=== PATIENT | female | born 1940 | race Caucasian/White ===

== ENCOUNTER 2016-08-12 16:29 | Inpatient (IN) | payer OTHER, MEDICARE ==
--- NOTE | 2016-08-12 17:07 | PDOC ---
History of Present Illness <Tutu Holt - Last Filed: 08/12/16 21:06> - General History Source: Patient, Old Records Exam Limitations: No Limitations - History of Present Illness Initial Comments: 08/12/16 17:39 The patient is a 76 year old female, with a significant past medical history of hypertension, GERD and autoimmune hepatitis (diagnosed in May 2016 with confirmatory biopsy in June 2016), who presents to the emergency department with worsening shortness of breath for the past 3 days. The patient reports abdominal distention in addition to bilateral lower extremity edema. The patient reports that the abdominal distention is worse after eating. The patient reports that she was recently diagnosed with autoimmune hepatitis in May 2016 and was started on Azathioprine, Lasix and Prednisone. On 2016, the patient reports that she began experiencing leg cramps and was advised to stop taking the Lasix by Dr. Ariza. Three days ago, the patient began experiencing hand cramping and facial cramping. She reports calling Dr. Hidalgo at that time, who advised that she stop taking the Azathioprine. The patient reports a weight gain of 17 pounds in the past 2 months, from 240 pounds to 257 pounds. The patient presents to the ED today, sent in by Dr. Ariza, for further evaluation. The patient denies chest pain. The patient denies fever, chills, nausea or vomiting. The patient's family is at the bedside. Allergies: NSAIDS. Medications: Metoprolol, Hydrochlorothiazide, Omeprazole, Azathioprine, Lasix, Prednisone. Past Surgical History: Liver Biopsy (June 2016). Social History: Non smoker. Denies alcohol or drug use. PCP: Dr. Jasno Ariza Traffic Control Supervisor: Dr. Sexton Make Up Artist: Dr. Hidalgo <Jordyn Pelayo - Last Filed: 08/12/16 21:30> - General Chief Complaint: Shortness of Breath Stated Complaint: SHORTNESS OF BREATH Time Seen by Provider: 08/12/16 16:37 Past History - Past Medical History HTN: Yes HIV: Yes Other medical history: autoimmune hepatitis - Psycho/Social/Smoking Cessation Hx Anxiety: No Suicidal Ideation: No Smoking History: Never smoked Have you smoked in the past 12 months: No Information on smoking cessation initiated: No Hx Alcohol Use: No Drug/Substance Use Hx: No Substance Use Type: None <Tutu Holt - Last Filed: 08/12/16 21:06> <Jordyn Pelayo - Last Filed: 08/12/16 21:30> - Past Medical History Allergies/Adverse Reactions: Allergies Allergy/AdvReac Type Severity Reaction Status Date / Time NSAIDS (Non-Steroidal Allergy Severe Difficulty Verified 08/12/16 16:59 Anti-Inflamma Breathing Home Medications: Ambulatory Orders Azathioprine [Imuran] 50 mg PO BID 08/12/16 Furosemide [Lasix -] 20 mg PO DAILY 08/12/16 Hydrochlorothiazide 25 mg PO DAILY 08/12/16 Metoprolol Tartrate [Lopressor -] 50 mg PO BID 08/12/16 Omeprazole 40 mg PO DAILY 08/12/16 Prednisone [Deltasone -] 60 mg PO DAILY 08/12/16 Review of Systems - Review of Systems Able to Perform ROS?: Yes Comments:: 08/12/16 17:37 CONSTITUTIONAL: Absent: Fever, Chills, Diaphoresis, Generalized Weakness, Malaise, Loss of Appetite HEENT: Absent: Rhinorrhea, Nasal Congestion, Throat Pain, Throat Swelling, Difficulty Swallowing, Mouth Swelling, Ear Pain, Eye Pain, Visual Changes CARDIOVASCULAR: Absent: Chest Pain, Syncope, Palpitations, Irregular Heart Rate, Lightheadedness , Peripheral Edema RESPIRATORY: Present: +Shortness of Breath Absent: Cough, Orthopnea, Wheezing, Stridor, Hemoptysis GASTROINTESTINAL: Present: +Abdominal Distention Absent: Abdominal pain, Nausea, Vomiting, Diarrhea, Constipation, Melena, Hematochezia GENITOURINARY: Absent: Dysuria, Frequency, Urgency, Hesitancy, Flank Pain, Genital Pain MUSCULOSKELETAL: Absent: Myalgia, Arthralgia, Joint Swelling, Back pain, Neck Pain EXTREMITIES: Present: +Bilateral lower extremity edema SKIN: Absent: Rash, Itching, Pallor HEMATOLOGIC/IMMUNOLOGIC: Absent: Easy Bleeding, Easy Bruising, Lymphadenopathy, Frequent infections ENDOCRINE: Absent: Unexplained Weight Gain, Unexplained Weight Loss, Heat Intolerance, Cold Intolerance NEUROLOGIC: Absent: Headache, Focal Weakness, Paresthesias, Vertigo, Lightheadedness, Unsteady Gait, Seizure, Mental Status Changes, Incontinence PSYCHIATRIC: Absent: Anxiety, Depression <Jordyn Pelayo - Last Filed: 08/12/16 21:30> *Physical Exam - Vital Signs Last Vital Signs Temp Pulse Resp BP Pulse Ox 98.0 F 93 H 22 140/82 100 08/12/16 16:44 08/12/16 16:44 08/12/16 16:44 08/12/16 16:44 08/12/16 16:44 <YanetTutu Isac - Last Filed: 08/12/16 21:06> - Vital Signs Last Vital Signs Temp Pulse Resp BP Pulse Ox 98.0 F 93 H 22 140/82 100 08/12/16 16:44 08/12/16 16:44 08/12/16 16:44 08/12/16 16:44 08/12/16 16:44 - Physical Exam Comments: 08/12/16 17:37 GENERAL: The patient is awake, alert, and fully oriented, in no acute distress. HEAD: Normal with no signs of trauma. EYES: Pupils equal, round and reactive to light, extraocular movements intact, sclera anicteric, conjunctiva clear. ENT: Ears normal, nares patent, oropharynx clear without exudates. Moist mucous membranes. NECK: Normal range of motion, supple without lymphadenopathy, JVD, or masses. LUNGS: Minimal right basilar crackles, left is clear. Breath sounds equal, bilaterally. No wheezes. HEART: Regular rate and rhythm, normal S1 and S2 without murmur, rub or gallop. ABDOMEN: Obese. Distended with a positive fluid wave. Mild diffuse tenderness. Soft, normoactive bowel sounds. No guarding, no rebound. No masses. No caput, no spiders angiomata. EXTREMITIES: 3+ pitting edema of the bilateral lower extremities to above the knee. Normal range of motion. No clubbing or cyanosis. No cords, erythema, or tenderness. NEUROLOGICAL: Cranial nerves II through XII grossly intact. Normal speech, normal gait. PSYCH: Normal mood, normal affect. SKIN: Warm, dry, normal turgor, no rashes or lesions noted. <Jordyn Pelayo - Last Filed: 08/12/16 21:30> Heart Score/ECG Review - ECG Intrepretation Comment:: 08/12/16 17:06 Twelve-lead EKG shows normal sinus rhythm at a rate of 100 bpm. The axis is normal. The intervals are normal. There are small inferior Q waves. There is no ST elevation or depression. In comparison with prior EKG of August 2007, there are no significant changes. <YanetTutu chowdary - Last Filed: 08/12/16 21:06> ED Treatment Course - LABORATORY CBC & Chemistry Diagram: 08/12/16 17:32 08/12/16 17:32 <YanetTutu Isac - Last Filed: 08/12/16 21:06> - LABORATORY CBC & Chemistry Diagram: 08/12/16 17:32 08/12/16 17:32 <Jordyn Pelayo - Last Filed: 08/12/16 21:30> Medical Decision Making - Medical Decision Making 08/12/16 21:06 Patient is a 76-year-old woman who presents with progressive ascites and leg edema. She has a history of autoimmune hepatitis with prior minor leg edema, but never this severe. She is also complaining of some cramping in her legs and her hands. On examination she has minimal right basilar crackles, significant ascites, and leg edema up above the knees with 3+ pitting. Bedside ultrasound was performed by me. There is substantial ascites. The liver appears somewhat echo dense. Windows for the cardiac exam were poor due to the patient's obesity. There was no gross pericardial effusion. Laboratory studies reviewed. They are notable for acute kidney injury. Hepatic synthetic function is normal with INR normal and bilirubin normal. Patient's white blood cell count is elevated to 21.9, however, she is on steroids and her baseline white blood cell count has been in the high teens to 20. I spoke to Dr. Hernandez and he will admit the patient. GI consultation requested with Dr. Hidalgo for tomorrow. No acute indication for paracentesis tonight. Laboratory Tests 08/12/16 08/12/16 08/12/16 17:32 17:32 17:32 WBC 21.9 H RBC 4.46 Hgb 13.3 Hct 39.7 MCV 89.1 MCHC 33.6 RDW 15.4 Plt Count 255 D MPV 9.1 Neutrophils % 92.0 H Lymphocytes % 6.0 L D Monocytes % 1.0 L Eosinophils % 0.0 D Basophils % 0.0 Band Neutrophils 1.0 D INR 1.03 Sodium 137 Potassium 4.6 Chloride 101 Carbon Dioxide 21 D Anion Gap 15 BUN 66 H D Creatinine 1.7 H D Creat Clearance w eGFR 29.14 Random Glucose 232 H D Calcium 8.3 L Magnesium Total Bilirubin 0.8 AST 44 H ALT 18 D Alkaline Phosphatase 82 D B-Natriuretic Peptide Total Protein 6.2 L Albumin 2.6 L 08/12/16 08/12/16 17:32 17:55 WBC RBC Hgb Hct MCV MCHC RDW Plt Count MPV Neutrophils % Lymphocytes % Monocytes % Eosinophils % Basophils % Band Neutrophils INR Sodium Potassium Chloride Carbon Dioxide Anion Gap BUN Creatinine Creat Clearance w eGFR Random Glucose Calcium Magnesium 2.6 H Total Bilirubin AST ALT Alkaline Phosphatase B-Natriuretic Peptide 701.87 H Total Protein Albumin The scribe's documentation has been prepared under my direction and personally reviewed by me in its entirety. I have confirmed that the note above accurately reflects all work, treatment, procedures, and medical decision- making performed by me. <Tutu Holt - Last Filed: 08/12/16 21:06> - Medical Decision Making 08/12/16 18:22 EXAM: RAD/CHEST X-RAY PORTABLE Reviewed By: Dr. Yuliana Chi IMPRESSION: Moderate elevation of the right hemidiaphragm with mild atelectatic changes in the right lung base, medially. Cannot rule out superimposed infiltrates. EXAM: US/ABDOMEN US - LIMITED Reviewed By: Dr. Yuliana Chi IMPRESSION: Gallstones/Gallstones with the largest measuring 1.5 x 0.7 cm with thickening of the gallbladder wall. Correlate clinically for further evaluation. Moderate amount of free fluid/ascites in the right upper abdomen. Dense echotexture of the liver consistent with fatty infiltrations versus hepatocellular disease. <Jordyn Pelayo - Last Filed: 08/12/16 21:30> *DC/Admit/Observation/Transfer - Discharge Dispostion Admit: Yes Decision to Admit order Date/Time: 08/12/16 21:09 <Tutu Holt - Last Filed: 08/12/16 21:06> - Attestations Scribe Attestion: 08/12/16 17:37 Documentation prepared by Jordyn Pelayo, acting as director of medical staff services for Tutu Holt MD. <Jordyn Pelayo - Last Filed: 08/12/16 21:30> Diagnosis at time of Disposition: CHF (congestive heart failure) Qualifiers: Congestive heart failure type: unspecified congestive heart failure type Congestive heart failure chronicity: unspecified congestive heart failure chronicity Qualified Code(s): I50.9 - Heart failure, unspecified Ascites Qualifiers: Ascites type: other type Qualified Code(s): R18.8 - Other ascites - Discharge Dispostion Condition at time of disposition: Stable - Referrals Referrals: Jason Ariza MD [Primary Care Provider] -
[2016-08-12 17:41] LABS: MCH 29.9 pg (25.7-33.7); MCHC 33.6 g/dl (32.0-36.0); MEAN CELL VOLUME 89.1 fl (80-96); MEAN PLT VOLUME 9.1 fl (7.5-11.1); PLATELET COUNT 255 K/MM3 (134-434); RDW 15.4 % (11.6-15.6); WHITE BLOOD COUNT 21.9 K/mm3 (4.0-10.0)
--- NOTE | 2016-08-12 17:43 | PDOC ---
History of Present Illness - General Chief Complaint: Shortness of Breath Stated Complaint: SHORTNESS OF BREATH Time Seen by Provider: 08/12/16 16:37 History Source: Patient Exam Limitations: No Limitations - History of Present Illness Initial Comments: 08/12/16 17:24 76 yo F with PMHx of autoimmune hepatitis, GERD, and HTN presents with one week history of worsening SOB and leg edema. She states that in late she was diagnosed with autoimmune hepatitis. She was started on Lasix, prednisone, and Azithioprine. She stopped lasix due to muscle cramping on 08/02/16 and fluid began to accumulate in abdomen and LE. 08/09/16 she stopped Azithioprine due to possible adverse effect of facial twitching. She presents today for worsening sob and LE edema. Denies CP, MEYERS, palpitations, n/v. Past History - Travel Traveled outside of the country in the last 30 days: No Close contact w/someone who was outside of country & ill: No - Past Medical History Allergies/Adverse Reactions: Allergies Allergy/AdvReac Type Severity Reaction Status Date / Time NSAIDS (Non-Steroidal Allergy Severe Difficulty Verified 08/12/16 16:59 Anti-Inflamma Breathing HTN: Yes HIV: Yes Other medical history: autoimmune hepatitis - Psycho/Social/Smoking Cessation Hx Anxiety: No Suicidal Ideation: No Smoking History: Never smoked Have you smoked in the past 12 months: No Information on smoking cessation initiated: No Hx Alcohol Use: No Drug/Substance Use Hx: No Substance Use Type: None Respiratory Specific PMHX - Complaint Specific PMHX Pneumonia: No Review of Systems - Review of Systems Respiratory: Yes: Shortness of Breath, SOB with Exertion, SOB at Rest. No: Hemoptysis Cardiac (ROS): Yes: Edema. No: Chest Pain All Other Systems: Reviewed and Negative *Physical Exam - Vital Signs Last Vital Signs Temp Pulse Resp BP Pulse Ox 98.0 F 93 H 22 140/82 100 08/12/16 16:44 08/12/16 16:44 08/12/16 16:44 08/12/16 16:44 08/12/16 16:44 - Physical Exam General Appearance: Yes: Mild Distress HEENT: positive: EOMI, [place] Neck: positive: Supple Respiratory/Chest: positive: Crackles (bibasilar crackles. ). negative: Respiratory Distress, Accessory Muscle Use Cardiovascular: positive: Regular Rhythm, Regular Rate, S1, S2. negative: Edema , JVD, Murmur Gastrointestinal/Abdominal: positive: Normal Bowel Sounds, Distended, Tenderness (mild diffuse), Other (ascites with (+) fluid wave. ) Musculoskeletal: positive: Normal Inspection, CVA Tenderness Extremity: positive: Pedal Edema, Swelling (2+ edema up to level of knees bilaterally. ). negative: Calf Tenderness Neurologic: positive: Fully Oriented, Alert, Normal Mood/Affect ED Treatment Course - LABORATORY CBC & Chemistry Diagram: 08/12/16 17:32 08/12/16 17:32 Medical Decision Making - Medical Decision Making 08/12/16 17:59 A:76 yo F with PMHx of autoimmune hepatitis, GERD, and HTN presents with one week history of worsening SOB and leg edema. Worsening edema most likely 2/2 progressive liver disease. P: * Will get stat labs to assess liver function- CBC,CMP,INR,BNP, Mg, and UA. * CXR and abd. US to access ascites and r/o portal vein thrombosis. *DC/Admit/Observation/Transfer Diagnosis at time of Disposition: Congestive heart failure Qualifiers: Congestive heart failure type: unspecified congestive heart failure type Congestive heart failure chronicity: unspecified congestive heart failure chronicity Qualified Code(s): I50.9 - Heart failure, unspecified Ascites Qualifiers: Ascites type: other type Qualified Code(s): R18.8 - Other ascites - Discharge Dispostion Admit: Yes - Referrals Referrals: Jason Ariza MD [Primary Care Provider] -
[2016-08-12 19:08] LABS: INR 1.03 (0.82-1.09); PROTHROMBIN TIME (PATIENT) 11.3 SEC (9.98-11.88)
[2016-08-12 19:17] LABS: ALBUMIN 2.6 g/dl (3.4-5.0); BILIRUBIN,TOTAL 0.8 mg/dL (0.2-1.0); CALCIUM 8.3 mg/dL (8.5-10.1); COCKROFT - GAULT 46.036; CREATININE 1.7 mg/dL (0.55-1.02); TOT PROT 6.2 g/dl (6.4-8.2)
[2016-08-12] MEDS ORDERED: FUROSEMIDE 40 MG/4 ML INJECTABLE VIAL IVPB ONE (20:22)
[2016-08-12] MEDS ORDERED: FUROSEMIDE 40 MG/4 ML INJECTABLE VIAL ONE (21:15)
[2016-08-12] MEDS ORDERED: METOPROLOL TARTRATE 50 MG TABLET (FP) ONE (23:24)
[2016-08-12] MEDS: METOPROLOL TARTRATE 50 MG TABLET (FP) PO SCH (23:29)
[2016-08-13] MEDS ORDERED: METOPROLOL TARTRATE 25 MG TABLET (FP) ONE (00:17)
[2016-08-13 01:23] VITALS: BMI 45.3
[2016-08-13 08:07] LABS: BASOPHIL 0.6 % (0-2.0); EOSINOPHIL 0.1 % (0-4.5); MCH 29.7 pg (25.7-33.7); MCHC 33.2 g/dl (32.0-36.0); MEAN CELL VOLUME 89.3 fl (80-96); MEAN PLT VOLUME 8.9 fl (7.5-11.1); NEUTROPHILS 83.6 % (42.8-82.8); PLATELET COUNT 234 K/MM3 (134-434); RDW 15.2 % (11.6-15.6); WHITE BLOOD COUNT 23.2 K/mm3 (4.0-10.0)
[2016-08-13 08:40] LABS: ALBUMIN 2.4 g/dl (3.4-5.0); BILIRUBIN,TOTAL 0.9 mg/dL (0.2-1.0); CALCIUM 8.2 mg/dL (8.5-10.1); COCKROFT - GAULT 47.94; CREATININE 1.8 mg/dL (0.55-1.02); TOT PROT 5.7 g/dl (6.4-8.2)
[2016-08-13] MEDS: PANTOPRAZOLE 40 MG TABLET (FP) PO SCH (09:39)
[2016-08-13] MEDS: METOPROLOL TARTRATE 50 MG TABLET (FP) PO SCH ×2 (09:39→21:20)
--- NOTE | 2016-08-13 10:00 | EKG ---
Test Reason : Blood Pressure : / mmHG Vent. Rate : 100 BPM Atrial Rate : 100 BPM P-R Int : 120 ms QRS Dur : 086 ms QT Int : 336 ms P-R-T Axes : 056 031 055 degrees QTc Int : 433 ms NORMAL SINUS RHYTHM CANNOT RULE OUT INFERIOR INFARCT , AGE UNDETERMINED POOR R WAVE PROGRESSION WHEN COMPARED WITH ECG OF 05-SEP-2007 08:51, NO SIGNIFICANT CHANGE WAS FOUND Confirmed by HEIKE BUCIO MD ([id number]) on 08/13/2016 10:00:14 AM Referred By: Confirmed By:HEIKE BUCIO MD
[2016-08-13 10:01] LABS: URINE APPEARANCE SLCLOUDY; URINE BILIRUBIN NEGATIVE (NEGATIVE); URINE COLOR AMBER; URINE GLUCOSE (UA) NEGATIVE (NEGATIVE); URINE KETONE NEGATIVE (NEGATIVE); URINE NITRITE NEGATIVE (NEGATIVE); URINE UROBILINOGEN NEGATIVE E.U./dl (0.2-1.0)
[2016-08-13 10:04] LABS: URINE BLOOD 2+ (NEGATIVE); URINE PROTEIN 1+ (NEGATIVE)
[2016-08-13 10:05] LABS: URINE LEUK ESTERASE 3+ (NEGATIVE)
[2016-08-13 10:08] LABS: URINE BACTERIA FEW /hpf (NONE SEEN); URINE HYALINE CAST 94 /lpf; URINE MUCUS RARE; URINE RBC 10 /hpf (0-3); URINE WBC 115 /hpf (3-5)
--- NOTE | 2016-08-13 10:43 | HP ---
Admitting History and Physical - Primary Care Physician PCP: Jason Ariza - Admission Chief Complaint: SANTA. Leg edema. Increased abdominal girth History of Present Illness: Pt. came to my office yesterday c/o SANTA, Leg edema, Increased abdominal girth for couple of days. Pt. was sent to ER via EMS secondary to SANTA, tachypnea. In ER she was found to have ascites. History Source: Patient Limitations to Obtaining History: No Limitations - Past Medical History Cardiovascular: Yes: HTN Gastrointestinal: Yes: GERD Hepatobiliary: Yes: Other (Autoimmune Hepatitis) Endocrine: Yes: Other (Obesity) - Smoking History Smoking history: Never smoked Have you smoked in the past 12 months: No - Alcohol/Substance Use Hx Alcohol Use: No Home Medications - Allergies Allergies/Adverse Reactions: Allergies Allergy/AdvReac Type Severity Reaction Status Date / Time NSAIDS (Non-Steroidal Allergy Severe Difficulty Verified 08/12/16 16:59 Anti-Inflamma Breathing - Home Medications Home Medications: Ambulatory Orders Azathioprine [Imuran] 50 mg PO BID 08/12/16 Furosemide [Lasix -] 20 mg PO DAILY 08/12/16 Hydrochlorothiazide 25 mg PO DAILY 08/12/16 Metoprolol Tartrate [Lopressor -] 50 mg PO BID 08/12/16 Omeprazole 40 mg PO DAILY 08/12/16 Prednisone [Deltasone -] 60 mg PO DAILY 08/12/16 Review of Systems - Review of Systems Constitutional: denies: Chills, Fever Eyes: denies: Blurred Vision, Recent Change in Vision HENT: denies: Difficult Swallowing, Ear Discharge, Ear Pain, Epistaxis, Nasal Congestion, Throat Pain Neck: denies: Decreased ROM, Pain on Movement Cardiovascular: denies: Chest Pain, Edema, Palpitations Respiratory: denies: Cough, SOB on Exertion, Wheezing Gastrointestinal: denies: Abdominal Pain, Constipation, Diarrhea Genitourinary: denies: Burning, Discharge, Dysuria, Flank Pain Musculoskeletal: denies: Back Pain, Extremity Pain, Muscle Pain, Muscle Cramps Integumentary: reports: Blister. denies: Bruising, Eczema Neurological: denies: Change in LOC, Change in Speech, Confusion, Numbness, Parasthesia, Syncope, Unsteady Gait Endocrine: denies: Excessive Sweating, Intolerance to Cold Hematology/Lymphatic: denies: Easily Bruised, Excessive Bleeding Physical Examination Vital Signs: Vital Signs Temperature 97.5 F L 08/13/16 01:01 Pulse Rate 104 H 08/13/16 01:01 Respiratory Rate 22 08/13/16 01:01 Blood Pressure 133/60 08/13/16 01:01 O2 Sat by Pulse Oximetry (%) 95 08/12/16 23:30 Constitutional: Yes: No Distress, Calm HENT: Yes: Normocephalic. No: Rhinnorhea, Thrush Neck: Yes: Supple, Trachea Midline. No: Lymphadenopathy Cardiovascular: Yes: Regular Rate and Rhythm, S1, S2 Respiratory: Yes: Regular, CTA Bilaterally, Other (decreased BS at right base) Gastrointestinal: Yes: Normal Bowel Sounds, Soft, Ascites. No: Abdomen, Obese ...Rectal Exam: No: Deferred Renal/: No: CVA Tenderness - Left, CVA Tenderness - Right Breast(s): Yes: Other (deferred) Musculoskeletal: No: Joint Stiffness, Joint Swelling Edema: LLE: 2+, RLE: 2+ Integumentary: No: Bruising, Jaundice Neurological: Yes: Alert, Oriented, Cran Nerves II-XII Intact Labs: CBC, BMP 08/13/16 07:00 08/13/16 07:00 Imaging - Results Chest X-ray: Report Reviewed Problem List - Problems (1) Ascites Assessment/Plan: [facility] GI consult; patient would need paracentesis. Code(s): R18.8 - OTHER ASCITES Qualifiers: Ascites type: other type Qualified Code(s): R18.8 - Other ascites (2) Autoimmune hepatitis Assessment/Plan: On Prednisone now ( pt. was on Azathioprine untill 3 days ago- on hold per Dr. Hidalgo) Code(s): K75.4 - AUTOIMMUNE HEPATITIS (3) Dyspnea on exertion Assessment/Plan: likely secondary to diminished lung capacity, secondary to ascites Code(s): R06.09 - OTHER FORMS OF DYSPNEA (4) Acute kidney injury Assessment/Plan: Likely secondary to low renal flow, secondary to ascites Renal consult. Code(s): N17.9 - ACUTE KIDNEY FAILURE, UNSPECIFIED (5) Leukocytosis Assessment/Plan: to monitor BCX, UA Code(s): D72.829 - ELEVATED WHITE BLOOD CELL COUNT, UNSPECIFIED Qualifiers: Leukocytosis type: unspecified Qualified Code(s): D72.829 - Elevated white blood cell count, unspecified (6) Obesity Code(s): E66.9 - OBESITY, UNSPECIFIED Assessment/Plan AM labs
[2016-08-13] MEDS ORDERED: PNEUMOC 13-VAL CONJ-DIP CRM/PF 0.5 ML DISP.SYRIN IM ONE (15:00)
--- NOTE | 2016-08-13 15:25 | CONSULT ---
Consult - text type - Consultation Consultation Note: Renal Consult for FARHEEN This is a 76 year old woman with PMhx of Autoimmune hepatitis (on Prednisone/ Azothiprine), GERD who presented with increased Abd and lower extremity swelling and found to have Ascities with FARHEEN with BUN/Cr of 77/1.8. Pt state that she has been off her Lasix for several months because it had caused leg cramps and muscle spasms. Was on Azothiprine up until 5 days ago. Denies any Contrast exposure or NSAID use. No N/V/D. Oral intake has been poor recently. No Recent Abx use. Denies any sob, chest pain, fever, chills, skin rash, MEYERS, confusion, lethargy, weakness. PMhx: as above Allergies: NKDA Family Hx: NC Social hx: No T/A/D ROS: as per HPI Home MEds: Home Medications Medication Instructions Recorded Azathioprine [Imuran] 50 mg PO BID 08/12/16 08/12/16 Hydrochlorothiazide 25 mg PO DAILY 08/12/16 Metoprolol Tartrate [Lopressor -] 50 mg PO BID 08/12/16 Omeprazole 40 mg PO DAILY 08/12/16 Prednisone [Deltasone -] 60 mg PO DAILY 08/12/16 Vital Signs Temperature 98.1 F 08/13/16 10:00 Pulse Rate 103 H 08/13/16 10:00 Respiratory Rate 20 08/13/16 10:00 Blood Pressure 150/77 08/13/16 10:00 O2 Sat by Pulse Oximetry (%) 95 08/12/16 23:30 Intake & Output 08/10/16 08/11/16 08/12/16 08/13/16 23:59 23:59 23:59 23:59 Weight 256 lb Gen: NAD, awake and alert HEENT: NT/AT, MMM, No JVD, neck supple CVS: RRR, No M/R Lungs: CTA, no rales or wheeze Abd: soft NT/ND Ext: No edema, clubbing or cyanosis : no bladder distension Neuro: AAOx3, no focal defects CBC, BMP 08/13/16 07:00 08/13/16 07:00 Current Medications Metoprolol Tartrate (Lopressor -) 50 mg PO BID ASTRID Last Admin: 08/13/16 09:39 Dose: 50 mg Pantoprazole Sodium (Protonix -) 40 mg PO DAILY ASTRID Last Admin: 08/13/16 09:39 Dose: 40 mg A/P 76 year old woman with PMhx of Autoimmune hepatitis (on Prednisone/Azothiprine) , GERD who presented with increased Abd and lower extremity swelling and found to have Ascities with FARHEEN with BUN/Cr of 77/1.8. #Acute Renal Failure in setting of Autoimmune Hepatitis and Ascities Etiology could be intravascular volume depletion vs. Abd compartment syndrome vs. Hepato-renal syndrome Check Urine studies for FeNa, FeUrea for paracentesis today IF large volume > 5 L removed, will need IV Albumin trend BUN/Cr avoid HANS/ARB/NSAIDs for now will likely require some diuretic #Autoimmune Hepatitis off Azothiprine GI follow up Continue Prednsone as per GI #Leukocytosis Related to steroids vs. infection blood cultures collected check Urine Cx #Hypertension continue metoprolol Thank you Will follow Chris Ashley DO
--- NOTE | 2016-08-13 17:16 | CON.CARD ---
Consult Consult Specialty:: Cardiology Referred by:: Jason Ariza MD Reason for Consultation:: Dyspnea, abd distension - History of Present Illness Chief Complaint: Dyspnea, abd distension History of Present Illness: This is a 76 year old woman with PMhx of Autoimmune hepatitis (on Prednisone/ Azothiprine), GERD presented with increased abd distension, dyspnea on exertion and lower extremity swelling and found to have ascities with FARHEEN with BUN/Cr of 77/1.8, underwent paracentesis 4.6 L. Pt state that she has been off her Lasix since early July because it had caused leg cramps and muscle spasms, was on Azothiprine up until 5 days ago. She denies any sob, chest pain, fever, chills, near or true syncope, palpitations, lethargy, weakness. - History Source History Provided By: Patient Limitations to Obtaining History: No Limitations - Alcohol/Substance Use Hx Alcohol Use: No - Smoking History Smoking history: Never smoked Have you smoked in the past 12 months: No Home Medications - Allergies Allergies/Adverse Reactions: Allergies Allergy/AdvReac Type Severity Reaction Status Date / Time NSAIDS (Non-Steroidal Allergy Severe Difficulty Verified 08/12/16 16:59 Anti-Inflamma Breathing - Home Medications Home Medications: Ambulatory Orders Azathioprine [Imuran] 50 mg PO BID 08/12/16 Furosemide [Lasix -] 20 mg PO DAILY 08/12/16 Hydrochlorothiazide 25 mg PO DAILY 08/12/16 Metoprolol Tartrate [Lopressor -] 50 mg PO BID 08/12/16 Omeprazole 40 mg PO DAILY 08/12/16 Prednisone [Deltasone -] 60 mg PO DAILY 08/12/16 Review of Systems - Review of Systems Cardiovascular: reports: Edema Respiratory: reports: SOB Gastrointestinal: reports: Other (Distension) Vital Signs: Vital Signs Temperature 98.2 F 08/13/16 14:48 Pulse Rate 97 H 08/13/16 14:48 Respiratory Rate 20 08/13/16 14:48 Blood Pressure 137/68 08/13/16 14:48 O2 Sat by Pulse Oximetry (%) 95 08/12/16 23:30 Constitutional: Yes: No Distress, Calm Neck: Yes: Supple Respiratory: Yes: Regular, Diminished Gastrointestinal: Yes: Normal Bowel Sounds, Soft, Abdomen, Obese Cardiovascular: Yes: Regular Rate and Rhythm JVD: No Carotid Bruit: No Heart Sounds: Yes: S1, S2 Murmur: Yes: Systolic Murmur, Grade 1 Edema: Yes Edema: LLE: 3+, RLE: 3+ - Other Data Labs, Other Data: CBC, BMP 08/13/16 07:00 08/13/16 07:00 INR, PTT INR 1.03 (0.82-1.09) 08/12/16 17:32 NSR @ 100 Imaging - Results Chest X-ray: Report Reviewed (NAD) Ultrasound: Report Reviewed (Gallstones, hepatocellular disease, mod ascites) Problem List - Problems (1) Ascites Code(s): R18.8 - OTHER ASCITES Qualifiers: Ascites type: other type Qualified Code(s): R18.8 - Other ascites (2) Acute diastolic heart failure Code(s): I50.31 - ACUTE DIASTOLIC (CONGESTIVE) HEART FAILURE (3) Hypertensive cardiomyopathy Code(s): I11.9 - HYPERTENSIVE HEART DISEASE WITHOUT HEART FAILURE I42.9 - CARDIOMYOPATHY, UNSPECIFIED Qualifiers: Heart failure presence: with heart failure Qualified Code(s): I11.0 - Hypertensive heart disease with heart failure (4) Autoimmune hepatitis Code(s): K75.4 - AUTOIMMUNE HEPATITIS (5) Peripheral edema Code(s): R60.9 - EDEMA, UNSPECIFIED (6) Acute kidney injury Code(s): N17.9 - ACUTE KIDNEY FAILURE, UNSPECIFIED (7) Leukocytosis Code(s): D72.829 - ELEVATED WHITE BLOOD CELL COUNT, UNSPECIFIED Qualifiers: Leukocytosis type: unspecified Qualified Code(s): D72.829 - Elevated white blood cell count, unspecified Assessment/Plan 01/31/2015 Stress echo: Normal LV size and fxn, mild MR, no ischemia 1. Ascites, edema post paracentesis, etiology to be determined diastolic failure vs. serositis vs hepatic failure 2. HTN/HCVD 3. Autoimmune hepatitis 4. Acute kidney injury 5. Leukocytosis likely referable to chronic steroids P:1. F/u ascites fluid, empiric coverage SBP, check esr, crp, SAAG ratio 2. Lasix IV and Aldactone with monitor diuretic response, renal fxn, and electrolytes, compression therapy 3. Continue Lopressor 50 bid, eventual HANS-I/ARB once renal fxn stabilizes 4. Thank you for consultative opportunity
[2016-08-13] MEDS: CEFTRIAXONE 50 ML IVPB SCH (17:42)
[2016-08-13] MEDS: SPIRONOLACTONE 25 MG TABLET (FP) PO SCH (20:36)
[2016-08-13 21:57] LABS: PERITONEAL FLUID LYMPHOCYTE 37 %; PERITONEAL FLUID NEUTROPHIL 20 %
[2016-08-13 21:58] LABS: PERITONEAL FLUID MACROPHAGE 35 %; PERITONEAL FLUID MESOTHELIAL 2 %; PERITONEAL FLUID MONOCYTE 5 %
[2016-08-14] MEDS: FUROSEMIDE 40 MG/4 ML INJECTABLE VIAL IVPB SCH ×2 (05:31→14:20)
[2016-08-14 08:15] LABS: BASOPHIL 0.7 % (0-2.0); EOSINOPHIL 0.4 % (0-4.5); MCH 29.2 pg (25.7-33.7); MCHC 32.7 g/dl (32.0-36.0); MEAN CELL VOLUME 89.4 fl (80-96); MEAN PLT VOLUME 8.8 fl (7.5-11.1); NEUTROPHILS 86.2 % (42.8-82.8); PLATELET COUNT 243 K/MM3 (134-434); RDW 15.8 % (11.6-15.6); WHITE BLOOD COUNT 22.9 K/mm3 (4.0-10.0)
--- NOTE | 2016-08-14 08:41 | PN ---
Progress Note, Physician Chief Complaint: in bed s/p paracentesis, feels better, less SOB; has occasional abdominal pain LUQ and RUQ - Current Medication List Current Medications: Active Medications Furosemide (Lasix Injection -) 40 mg IVPB BID@0600,1400 [facility] Last Admin: 08/14/16 05:31 Dose: 40 mg Ceftriaxone Sodium (Rocephin 1gm Ivpb (Pre-Docked)) 50 mls @ 100 mls/hr IVPB DAILY [facility] Last Admin: 08/13/16 17:42 Dose: 100 mls/hr Metoprolol Tartrate (Lopressor -) 50 mg PO BID [facility] Last Admin: 08/13/16 21:20 Dose: 50 mg Pantoprazole Sodium (Protonix -) 40 mg PO DAILY [facility] Last Admin: 08/13/16 09:39 Dose: 40 mg Spironolactone (Aldactone -) 25 mg PO DAILY [facility] Last Admin: 08/13/16 20:36 Dose: 25 mg - Objective Vital Signs: Vital Signs Temperature 98 F 08/14/16 07:36 Pulse Rate 94 H 08/14/16 07:36 Respiratory Rate 22 08/14/16 07:36 Blood Pressure 148/68 08/14/16 07:36 O2 Sat by Pulse Oximetry (%) 98 08/13/16 21:00 Constitutional: Yes: No Distress, Calm Eyes: Yes: Conjunctiva Clear HENT: Yes: Atraumatic Neck: Yes: Supple Cardiovascular: Yes: Regular Rate and Rhythm Respiratory: Yes: Diminished Gastrointestinal: Yes: Soft, Abdomen, Obese, Tenderness (mild upper quadrants). No: Distention Genitourinary: No: CVA Tenderness - Left, CVA Tenderness - Right, Hematuria Musculoskeletal: No: Joint Stiffness, Joint Swelling Extremities: No: Calf Tenderness, Cold, Cool, Cyanosis Edema: Yes (1+ bilateral) Peripheral Pulses WNL: Yes Integumentary: No: Bruising, Erythema, Petechiae, Rash, Venous Stasis Changes Neurological: Yes: WNL, Alert, Oriented ...Motor Strength: WNL Psychiatric: Yes: WNL, Alert, Oriented. No: Agitated, Suicidal Ideation Labs: CBC, BMP 08/14/16 07:00 INR, PTT INR 1.03 (0.82-1.09) 08/12/16 17:32 - ....Imaging Other: Report Reviewed Assessment/Plan 76 year old woman with PMhx of Autoimmune hepatitis (on Prednisone/Azothiprine) , HTN, OA, obesity, GERD who presented with increased Abd and lower extremity swelling and found to have Ascities with FARHEEN with BUN/Cr of 77/1.8. s/p paracentesis, removed about 1 Gallon fluid possible cholecystitis on US (GB thickening, gallstones) will get HIDA scan; also fatty liver (d/w pt weight loss, diet) and autoimmune hepatitis on meds will ask rheum to eval; check serologies; pt has fam hx lupus (mother) high WBC (was on prednisone home 20 mg/day) possible cholecystitis, possible UTI ; UCx sent; will ask ID to see pt; currently on iv ceftriaxone GI and cardiology f/u d/w pt and staff
[2016-08-14 08:57] LABS: ALBUMIN 2.1 g/dl (3.4-5.0); ANION GAP 15 (8-16); CALCIUM 8.5 mg/dL (8.5-10.1); CO2 21 mmol/L (21-32); GLUCOSE,RANDOM 214 mg/dL (74-106); MAGNESIUM 2.4 mg/dL (1.8-2.4)
[2016-08-14 09:01] LABS: ALK PHOS 79 U/L (45-117); BILIRUBIN,TOTAL 0.8 mg/dL (0.2-1.0); CREATININE 1.8 mg/dL (0.55-1.02); SGOT/AST 43 U/L (15-37); SGPT/ALT 15 U/L (12-78); TOT PROT 5.4 g/dl (6.4-8.2)
[2016-08-14] MEDS: SPIRONOLACTONE 25 MG TABLET (FP) PO SCH (09:01)
[2016-08-14] MEDS: PANTOPRAZOLE 40 MG TABLET (FP) PO SCH (09:01)
[2016-08-14] MEDS: METOPROLOL TARTRATE 50 MG TABLET (FP) PO SCH ×2 (09:01→21:55)
[2016-08-14] MEDS: CEFTRIAXONE 50 ML IVPB SCH (09:02)
[2016-08-14] MEDS ORDERED: HEPARIN NA (PORCINE) 5,000 UNITS/ML 1ML VIAL SQ SCH (10:00)
[2016-08-14 11:31] LABS: C-REACTIVE PROTEIN 17.3 MG/DL (0.00-0.3)
[2016-08-14] MEDS: predniSONE 20 MG TABLET (UD) PO SCH (12:01)
[2016-08-14] MEDS ORDERED: HEPARIN NA (PORCINE) 5,000 UNITS/ML 1ML VIAL IVPUSH ONE (14:35)
--- NOTE | 2016-08-14 14:45 | PN ---
Progress Note, Physician Chief Complaint: Patient with autoimmune Hepatitis, ahs abnormal renal functions. New finding of Acute DVT of the right lower extremity. Maintains good urine output. - Current Medication List Current Medications: Active Medications Furosemide (Lasix Injection -) 40 mg IVPB BID@0600,1400 [facility] Last Admin: 08/14/16 14:20 Dose: 40 mg Heparin Sodium (Porcine) (Heparin -) 5,000 unit SQ BID [facility] Last Admin: 08/14/16 12:01 Dose: 5,000 unit Ceftriaxone Sodium (Rocephin 1gm Ivpb (Pre-Docked)) 50 mls @ 100 mls/hr IVPB DAILY [facility] Last Admin: 08/14/16 09:02 Dose: 100 mls/hr Metoprolol Tartrate (Lopressor -) 50 mg PO BID [facility] Last Admin: 08/14/16 09:01 Dose: 50 mg Pantoprazole Sodium (Protonix -) 40 mg PO DAILY [facility] Last Admin: 08/14/16 09:01 Dose: 40 mg Prednisone (Deltasone -) 20 mg PO DAILY [facility] Last Admin: 08/14/16 12:01 Dose: 20 mg Spironolactone (Aldactone -) 25 mg PO DAILY [facility] Last Admin: 08/14/16 09:01 Dose: 25 mg - Objective Vital Signs: Vital Signs Temperature 98 F 08/14/16 07:36 Pulse Rate 100 H 08/14/16 10:00 Respiratory Rate 18 08/14/16 10:00 Blood Pressure 142/60 08/14/16 10:00 O2 Sat by Pulse Oximetry (%) 92 L 08/14/16 09:00 Constitutional: Yes: Well Nourished, Calm Eyes: Yes: Conjunctiva Clear HENT: Yes: Atraumatic Neck: Yes: Supple Cardiovascular: Yes: Regular Rate and Rhythm, S1, S2 Respiratory: Yes: Regular, CTA Bilaterally Gastrointestinal: Yes: Normal Bowel Sounds, Soft, Abdomen, Obese Extremities: Yes: Calf Tenderness (Right, with minimal swelling) Labs: CBC, BMP 08/14/16 07:00 08/14/16 07:00 INR, PTT INR 1.03 (0.82-1.09) 08/12/16 17:32 Problem List - Problems (1) Acute diastolic heart failure Code(s): I50.31 - ACUTE DIASTOLIC (CONGESTIVE) HEART FAILURE (2) Acute kidney injury Code(s): N17.9 - ACUTE KIDNEY FAILURE, UNSPECIFIED (3) Ascites Code(s): R18.8 - OTHER ASCITES Qualifiers: Ascites type: other type Qualified Code(s): R18.8 - Other ascites (4) Autoimmune hepatitis Code(s): K75.4 - AUTOIMMUNE HEPATITIS (5) CHF (congestive heart failure) Code(s): I50.9 - HEART FAILURE, UNSPECIFIED Qualifiers: Congestive heart failure type: unspecified congestive heart failure type Congestive heart failure chronicity: unspecified congestive heart failure chronicity Qualified Code(s): I50.9 - Heart failure, unspecified (6) Deep venous embolism and thrombosis of right lower extremity Code(s): I82.401 - ACUTE EMBOLISM AND THOMBOS UNSP DEEP VEINS OF R LOW EXTREM (7) Hyperkalemia Code(s): E87.5 - HYPERKALEMIA Assessment/Plan 76 y/o female with autoimmune Hepatitis...has developed acute Deep venous thrombosis of the right lower extremity. Renal functions stable. Serum Potassium normal. PLAN: IV Heparin infusion after bolus. Monitor the PTT daily Serology for pro-coagulant factors in the setting of autoimmune disease. Will monitor the renal functions with you. Discussed with dr. To Ovalle MD
[2016-08-14] MEDS ORDERED: HEPARIN NA (PORCINE) 5,000 UNITS/ML 1ML VIAL IVPUSH PRN (14:55)
--- NOTE | 2016-08-14 14:55 | PN ---
Progress Note (short form) - Note Progress Note: ID consult dictated imp/reccd asked to see for lelukocytosis 76 year old female with recently diagnosed autoimmune hepatitis (liver biopsy in June at [facility]), treated with prednisone and azathriopine developed leg cramps, d/delbert lasix 08/02, stopped azathropine on Tuesday due to cramps admitted with increasing lower extremity edema and abdominal girth (first noticed at [facility] time) now on prednisone 20 mg daily for several weeks leukocytosis-autoimmune hepatitis on prednisone ?sbp ?uti ?steroids continue rocephin, f/u cultures strong family history of autoimmune disease reports remote TB exposure as child to relative with TB never treated was observed in [place] for three months as a child! check quantiferon gold autoimmune hepatitis +ADOLFO Laboratory Tests 04/05/16 11:53 ADOLFO Screen Positive H ADOLFO Homogeneous Pattern 1:640 H ADOLOF Nucleolar Pattern 1:1280 H Mitochon/Sm Musc Ab Titr 8.0 Smooth Musc &ACCREDITATION MANAGER Intrp 20 H
[2016-08-14 15:16] LABS: MCH 29.4 pg (25.7-33.7); MEAN CELL VOLUME 89.2 fl (80-96); MEAN PLT VOLUME 9.2 fl (7.5-11.1); PLATELET COUNT 241 K/MM3 (134-434); RDW 15.4 % (11.6-15.6); WHITE BLOOD COUNT 23.8 K/mm3 (4.0-10.0)
[2016-08-14 15:28] LABS: INR 1.04 (0.82-1.09); PROTHROMBIN TIME (PATIENT) 11.5 SEC (9.98-11.88)
[2016-08-14 15:30] LABS: ACTIVATED PTT 25.3 SECONDS (26.9-34.4)
[2016-08-14] MEDS: HEPARIN NA (PORCINE) 5,000 UNITS/ML 1ML VIAL IVPUSH PRN (15:43)
[2016-08-14] MEDS: HEPARIN INFUSION - 500 ML IVPB SCH (15:43)
--- NOTE | 2016-08-14 15:57 | CONS ---
DATE OF CONSULTATION: DATE OF DICTATION: 08/14/2016 REQUESTED BY: Jason Ariza MD This is a 76-year-old woman who was diagnosed in June of this year with autoimmune hepatitis by . She had a liver biopsy at [facility]. She reports her transaminases peaked in the 600s. She was started on prednisone 60 mg a day. It was ultimately tapered down to 20 mg. Azathioprine was added. She subsequently developed a lot of cramps in her legs. She was taking Lasix, which she stopped on August 02 due to the leg cramps. This past Tuesday, she spoke with Dr. Hidalgo and her azathioprine was stopped due to her leg discomfort, which she reports has improved. She went to see Dr. Ariza in the office, complaining of lower extremity edema, and increasing abdominal girth, and she was admitted to the hospital. She reports noting that her abdomen was getting larger around Easter time. She denies any fevers. She denies any chills. There have been no night sweats. She has no nausea or vomiting. She has no dysuria or constipation. She is originally from [place]. Her last travel was on a cruise in September to [facility]. She is retired. Her son is living with her. They have no pets. PAST MEDICAL HISTORY: Is notable for history of hypertension. She has a history, as well of GERD, autoimmune hepatitis diagnosed in June of this year, obesity. Surgical history is notable for cataract surgery and she had a breast biopsy in her 20s. ALLERGIES: She is allergic to NONSTEROIDALS. MEDICATIONS: Included azathioprine which has been stopped, Lasix which she was not taking, hydrochlorothiazide, metoprolol, omeprazole, and prednisone 20 mg daily. FAMILY HISTORY: Her mother at age 61 of lupus. Her younger sister of diabetes at age 43 and her older sister has Graves disease. SOCIAL HISTORY: Her son is currently living with her. 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 There is no history of any cigarette or substance use. REVIEW OF SYSTEMS: She denies fevers and chills. She has no visual changes. She has no cough. She has no nausea or vomiting. She now notes she does have some abdominal discomfort. She is status post paracentesis and she attributes this to the paracentesis. Her lower extremity edema, she reports is improved, is right leg greater than left. PHYSICAL EXAMINATION: General: She is awake and alert. Vital signs: Temperature is 98; pulse of 100; blood pressure 142/60; respiratory rate is 18; O2 saturation is 92%. HEENT: She is normocephalic. Her eyes are anicteric. Neck: Supple. Lungs: Have diminished breath sounds at the bases. Heart: Regular rate and rhythm. Abdomen: Soft. She has bowel sounds. She has some ascites. Extremities: Are notable for 2+ pitting edema. White count is 22.9, hemoglobin 13.8, platelets are 243. INR is 1. BUN is 76 and creatinine is 1.8 with a CRP of 17.3 and a sedimentation rate of 18. Her urinalysis has 3+ leukocyte esterase, with 115 white cells. Peritoneal fluid had 1330 white cells, of which 20% are neutrophils, with a glucose of 246, and cultures and Gram stain are all pending on the fluid. Blood cultures are pending, as well. Ultrasound of the abdomen and pelvis revealed gallstones, moderate free fluid, and dense texture of the liver. In summary, this is a 76-year-old woman with leukocytosis, autoimmune hepatitis , on prednisone. This could be SBP. Her neutrophil count is about 250. Cultures are pending. Could be urinary tract infection. Could be steroids. Would continue Rocephin and follow up her cultures. She has a strong history of autoimmune disease and has had a high-titer ADOLFO in the past. MEREDITH INFANTE M.D. [id number] MTDD
--- NOTE | 2016-08-14 19:26 | PN ---
Progress Note, Physician History of Present Illness: Abd distension and dyspnea improving with diuresis, RLE DVT diagnosed on vascular U/S. - Current Medication List Current Medications: Active Medications Furosemide (Lasix Injection -) 40 mg IVPUSH BID@0600,1400 [facility] Heparin Sodium (Porcine) (Heparin -) 5,000 unit IVPUSH PRN PRN Heparin Sodium (Porcine) (Heparin -) 1,000 unit IVPUSH PRN PRN Ceftriaxone Sodium (Rocephin 1gm Ivpb (Pre-Docked)) 50 mls @ 100 mls/hr IVPB DAILY [facility] Last Admin: 08/14/16 09:02 Dose: 100 mls/hr Heparin Sodium/Dextrose (Heparin Infusion -) 500 mls @ 20 mls/hr IVPB TITR ASTRID ; 1,000 UNITS/HR PRN Reason: Protocol Last Admin: 08/14/16 15:43 Dose: 20 mls/hr Metoprolol Tartrate (Lopressor -) 50 mg PO BID [facility] Last Admin: 08/14/16 09:01 Dose: 50 mg Pantoprazole Sodium (Protonix -) 40 mg PO DAILY [facility] Last Admin: 08/14/16 09:01 Dose: 40 mg Prednisone (Deltasone -) 20 mg PO DAILY [facility] Last Admin: 08/14/16 12:01 Dose: 20 mg Spironolactone (Aldactone -) 25 mg PO DAILY [facility] Last Admin: 08/14/16 09:01 Dose: 25 mg - Objective Vital Signs: Vital Signs Temperature 98.2 F 08/14/16 18:58 Pulse Rate 105 H 08/14/16 18:58 Respiratory Rate 20 08/14/16 18:58 Blood Pressure 135/62 08/14/16 18:58 O2 Sat by Pulse Oximetry (%) 92 L 08/14/16 09:00 Constitutional: Yes: No Distress, Calm Neck: Yes: Supple Cardiovascular: Yes: Regular Rate and Rhythm Respiratory: Yes: Regular, Diminished Gastrointestinal: Yes: Normal Bowel Sounds, Soft, Abdomen, Obese Edema: Yes Edema: LLE: 3+, RLE: 3+ Labs: CBC, BMP 08/14/16 14:55 08/14/16 07:00 INR, PTT INR 1.04 (0.82-1.09) 08/14/16 14:55 Problem List - Problems (1) Ascites Code(s): R18.8 - OTHER ASCITES Qualifiers: Ascites type: other type Qualified Code(s): R18.8 - Other ascites (2) Acute diastolic heart failure Code(s): I50.31 - ACUTE DIASTOLIC (CONGESTIVE) HEART FAILURE (3) Hypertensive cardiomyopathy Code(s): I11.9 - HYPERTENSIVE HEART DISEASE WITHOUT HEART FAILURE I42.9 - CARDIOMYOPATHY, UNSPECIFIED Qualifiers: Heart failure presence: with heart failure Qualified Code(s): I11.0 - Hypertensive heart disease with heart failure (4) Autoimmune hepatitis Code(s): K75.4 - AUTOIMMUNE HEPATITIS (5) Peripheral edema Code(s): R60.9 - EDEMA, UNSPECIFIED (6) Acute kidney injury Code(s): N17.9 - ACUTE KIDNEY FAILURE, UNSPECIFIED (7) Leukocytosis Code(s): D72.829 - ELEVATED WHITE BLOOD CELL COUNT, UNSPECIFIED Qualifiers: Leukocytosis type: unspecified Qualified Code(s): D72.829 - Elevated white blood cell count, unspecified (8) Deep venous embolism and thrombosis of right lower extremity Code(s): I82.401 - ACUTE EMBOLISM AND THOMBOS UNSP DEEP VEINS OF R LOW EXTREM Assessment/Plan 01/31/2015 Stress echo: Normal LV size and fxn, mild MR, no ischemia 1. Ascites, edema post paracentesis, etiology to be determined diastolic failure vs. serositis vs hepatic failure 2. HTN/HCVD 3. Autoimmune hepatitis 4. Acute kidney injury 5. Leukocytosis referable to chronic steroids vs SBP vs UTI 6. RLE DVT P:1. F/u ascites fluid, empiric coverage SBP f/u C&S, check SAAG ratio 2. Lasix 40 IV bid and Aldactone 25 qd with monitor diuretic response, renal fxn , and electrolytes 3. Continue Lopressor 50 bid, eventual HANS-I/ARB once renal fxn stabilizes 4. IV heparin gtt, prednisone with GI protection
[2016-08-14 22:33] LABS: URINE APPEARANCE CLEAR; URINE BILIRUBIN NEGATIVE (NEGATIVE); URINE COLOR LTYELLOW; URINE GLUCOSE (UA) NEGATIVE (NEGATIVE); URINE KETONE NEGATIVE (NEGATIVE); URINE NITRITE NEGATIVE (NEGATIVE); URINE PROTEIN NEGATIVE (NEGATIVE); URINE UROBILINOGEN NEGATIVE E.U./dl (0.2-1.0)
[2016-08-14 22:34] LABS: URINE BLOOD 2+ (NEGATIVE); URINE LEUK ESTERASE 1+ (NEGATIVE)
[2016-08-14 22:35] LABS: URINE HYALINE CAST 64 /lpf; URINE MUCUS RARE; URINE RBC 12 /hpf (0-3); URINE WBC 13 /hpf (3-5)
--- NOTE | 2016-08-14 22:41 | CONSULT ---
Consult Consult Specialty:: Rheumatology - History of Present Illness History of Present Illness: 76 year old female with hypertension, macular degeneration and autoimmune hepatitis, admitted with acute decompensation. HPI. The patient has a alf history of muscle cramps, and recently the problem became more severe, therefore on 08/02/16 she discontinue Furosemide and Lasix. Initially the cramps improved, however in the last week she has had progression of abdominal distention and shortness of breath. The patient was admitted on 08/12/16 and on 08/13/16 she had paracenthesis of 4 L. Duplex US positive for DVT in the right leg. Creatinine was 1.8 and urinalysis with LE 3+ , protein 1+ and blood 2+. AST 43 and ALT 15. The patient was started on diuretics,metoprolol, heparin and antibiotics. At the present time she feels better, however she still ahs significant ascitis. Autoimmune hepatitis. Rule out other connective tissue disease. The patient has history of elevation of AST and ALT since 2009. Liver biopsy (06/29/16): chronic hepatitis with moderate activity (grade 3 to 4) and transition to cirrhosis (grade 3 to 4 ) consistent with autoimmune hepatitis. She has history of Raynaud's phenomenon since she was a young adult and she denies joint pain, skin rash, oral ulcers, photosensitivity, dry eyes, dry mouth, hair loss or fever. Laboratory work-up from 07/02/16 revealed a creatinine of 0.8 and urinalysis had blood 1+, LE trace and protein negative. She was started on Prednisone 60 mg/d which was tapered down and on Azathioprine 100 mg/d since . Anti-mitochondrial and soluble liver antibody were negative. ADOLFO was positive in the past ((1:1280 with nucleolar pattern) and positive anti-Smooth muscle antibody (questionable if it was anti-Sm). Serology for hepatitis B and C was negative. I saw the patient in my office on 07/27/16 and further work-up revealed ESR 9. Anti-DNA ds, anti-Sm, anti-AUDIO VIDEO TECHNICIAN, anti-cardiolipin, anti-SSA, anti-SSB, ANCA, myeloperoxidase and proteinase-3 all negative. Complement was normal (C3: 140 and C4 :24). Serum immunofixation revealed a faint band in lambda that could not be verified, and has to be repited in the future. - History Source History Provided By: Patient, Medical Record Limitations to Obtaining History: No Limitations (Macular degeneration.) - Past Medical History Cardio/Vascular: Yes: HTN Gastrointestinal: Yes: GERD Hepatobiliary: Yes: Other (Autoimmune Hepatitis) Endocrine: Yes: Other (Obesity) - Alcohol/Substance Use Hx Alcohol Use: No - Smoking History Smoking history: Never smoked Have you smoked in the past 12 months: No Home Medications - Allergies Allergies/Adverse Reactions: Allergies Allergy/AdvReac Type Severity Reaction Status Date / Time NSAIDS (Non-Steroidal Allergy Severe Difficulty Verified 08/12/16 16:59 Anti-Inflamma Breathing - Home Medications Home Medications: Ambulatory Orders Azathioprine [Imuran] 50 mg PO BID 08/12/16 Furosemide [Lasix -] 20 mg PO DAILY 08/12/16 Hydrochlorothiazide 25 mg PO DAILY 08/12/16 Metoprolol Tartrate [Lopressor -] 50 mg PO BID 08/12/16 Omeprazole 40 mg PO DAILY 08/12/16 Prednisone [Deltasone -] 60 mg PO DAILY 08/12/16 Family Disease History - Family Disease History Family Disease History: Other: Mother (Lupus and dies fo lupus encephalitis), Sister (Graves disease) Other Family History: ANother sister of nsulin dependent diabetes, Review of Systems - Review of Systems Constitutional: reports: Malaise Eyes: reports: No Symptoms HENT: reports: No Symptoms Neck: reports: No Symptoms Cardiovascular: reports: Shortness of Breath Respiratory: reports: SOB Gastrointestinal: reports: Other (Abdominal distention) Genitourinary: reports: No Symptoms Musculoskeletal: reports: No Symptoms Integumentary: reports: No Symptoms Physical Exam Vital Signs: Vital Signs Temperature 98.2 F 08/14/16 18:58 Pulse Rate 96 H 08/14/16 20:47 Respiratory Rate 20 08/14/16 20:47 Blood Pressure 138/70 08/14/16 20:47 O2 Sat by Pulse Oximetry (%) 92 L 08/14/16 09:00 Constitutional: Yes: Mild Distress Eyes: Yes: WNL HENT: Yes: WNL Neck: Yes: WNL Cardiovascular: Yes: WNL Respiratory: Yes: WNL Gastrointestinal: Yes: Other (Ascitis.) Labs: CBC, BMP 08/14/16 14:55 08/14/16 07:00 Laboratory Tests 08/12/16 08/13/16 08/13/16 20:23 09:35 17:15 ESR Lactic Acid 2.877 H* Calcium Magnesium Total Bilirubin AST ALT Alkaline Phosphatase C-Reactive Protein Total Protein Albumin Urine Color Kathleen Urine Appearance Slcloudy Urine pH 5.0 Ur Specific [place] 1.021 Urine Protein 1+ H Urine Glucose (UA) Negative Urine Ketones Negative Urine Blood 2+ H Urine Nitrite Negative Urine Bilirubin Negative Urine Urobilinogen Negative Ur Leukocyte Esterase 3+ H D Urine RBC 10 Urine WBC 115 Urine Bacteria Few Hyaline Casts 94 Peritoneal WBC 1330 Periton Neutrophils 20 Periton Lymphocytes 37 Peritoneal Monocytes 5 Peritoneal Tot Protein 4 Peritoneal Albumin 2 Peritoneal LDH 683 Peritoneal Glucose 246 Peritoneal Amylase 67 Rheumatoid Factor 08/14/16 08/14/16 07:00 10:14 ESR 18 Lactic Acid Calcium 8.5 Magnesium 2.4 Total Bilirubin 0.8 AST 43 H ALT 15 Alkaline Phosphatase 79 C-Reactive Protein 17.3 H Total Protein 5.4 L Albumin 2.1 L Urine Color Urine Appearance Urine pH Ur Specific [place] Urine Protein Urine Glucose (UA) Urine Ketones Urine Blood Urine Nitrite Urine Bilirubin Urine Urobilinogen Ur Leukocyte Esterase Urine RBC Urine WBC Urine Bacteria Hyaline Casts Peritoneal WBC Periton Neutrophils Periton Lymphocytes Peritoneal Monocytes Peritoneal Tot Protein Peritoneal Albumin Peritoneal LDH Peritoneal Glucose Peritoneal Amylase Rheumatoid Factor < 10.0 Problem List - Problems (1) Autoimmune hepatitis Assessment/Plan: The patient has autoimmune hepatitis with progression to cirrhosis. Admitted with acute liver decompensation (probably related to cirrhosis, with large ascitis accumulation). Less likely acute heart failure. Elevation of creatinine probably secondary to cirrhosis decompensation. ADOLFO positive and anti-Smooth antibodies are indicative of autoimmune hepatitis. As all other serology was negative, complement normal and in the biopsy there were no changes suggestive of lupus, it is unlikely that she has lupus or other connective tissue disease. Plan: management as per GI recommendation. Code(s): K75.4 - AUTOIMMUNE HEPATITIS
[2016-08-15] MEDS: FUROSEMIDE 40 MG/4 ML INJECTABLE VIAL IVPUSH SCH ×2 (06:21→14:34)
[2016-08-15 07:58] LABS: MCH 29.2 pg (25.7-33.7); MCHC 32.3 g/dl (32.0-36.0); MEAN CELL VOLUME 90.6 fl (80-96); MEAN PLT VOLUME 9.1 fl (7.5-11.1); PLATELET COUNT 245 K/MM3 (134-434); RDW 15.3 % (11.6-15.6); WHITE BLOOD COUNT 22.6 K/mm3 (4.0-10.0)
[2016-08-15 08:33] LABS: ALBUMIN 1.9 g/dl (3.4-5.0); BILIRUBIN,TOTAL 0.7 mg/dL (0.2-1.0); CALCIUM 8.1 mg/dL (8.5-10.1); COCKROFT - GAULT 41.055; CREATININE 2.1 mg/dL (0.55-1.02)
[2016-08-15] MEDS: predniSONE 20 MG TABLET (UD) PO SCH (09:03)
[2016-08-15] MEDS: PANTOPRAZOLE 40 MG TABLET (FP) PO SCH (09:03)
[2016-08-15] MEDS: METOPROLOL TARTRATE 50 MG TABLET (FP) PO SCH ×2 (09:03→21:31)
[2016-08-15] MEDS: CEFTRIAXONE 50 ML IVPB SCH (09:03)
[2016-08-15] MEDS: SPIRONOLACTONE 25 MG TABLET (FP) PO SCH (09:03)
--- NOTE | 2016-08-15 09:06 | PN ---
Progress Note, Physician History of Present Illness: Pt w/o SOB at rest. Pt w/o CP, palp., abd pain. - Current Medication List Current Medications: Active Medications Furosemide (Lasix Injection -) 40 mg IVPUSH BID@0600,1400 [facility] Last Admin: 08/15/16 06:21 Dose: 40 mg Heparin Sodium (Porcine) (Heparin -) 5,000 unit IVPUSH PRN PRN Heparin Sodium (Porcine) (Heparin -) 1,000 unit IVPUSH PRN PRN Ceftriaxone Sodium (Rocephin 1gm Ivpb (Pre-Docked)) 50 mls @ 100 mls/hr IVPB DAILY [facility] Last Admin: 08/14/16 09:02 Dose: 100 mls/hr Heparin Sodium/Dextrose (Heparin Infusion -) 500 mls @ 20 mls/hr IVPB TITR [facility] ; 1,000 UNITS/HR PRN Reason: Protocol Last Titration: 08/14/16 23:45 Dose: 900 units/hr Metoprolol Tartrate (Lopressor -) [address] [facility] Last Admin: 08/14/16 21:55 Dose: 50 mg Pantoprazole Sodium (Protonix -) [address] [facility] Last Admin: 08/14/16 09:01 Dose: 40 mg Prednisone (Deltasone -) [address] [facility] Last Admin: 08/14/16 12:01 Dose: 20 mg Spironolactone (Aldactone -) [address] [facility] Last Admin: 08/14/16 09:01 Dose: 25 mg - Objective Vital Signs: Vital Signs Temperature 98.0 F 08/15/16 05:54 Pulse Rate 86 08/15/16 05:54 Respiratory Rate 20 08/15/16 05:54 Blood Pressure 138/73 08/15/16 05:54 O2 Sat by Pulse Oximetry (%) 95 08/14/16 21:00 Constitutional: Yes: No Distress, Calm Cardiovascular: Yes: Regular Rate and Rhythm, S1, S2 Respiratory: Yes: Regular, CTA Bilaterally. No: Rales Gastrointestinal: Yes: Normal Bowel Sounds, Soft, Abdomen, Obese. No: Tenderness Edema: Yes Edema: LLE: 2+, RLE: 2+ Neurological: Yes: Alert, Oriented Labs: CBC, BMP 08/15/16 06:10 08/15/16 06:10 INR, PTT INR 1.04 (0.82-1.09) 08/14/16 14:55 Problem List - Problems (1) Ascites Assessment/Plan: s/p Paracentesis (SAAG less than 1.1) Code(s): R18.8 - OTHER ASCITES Qualifiers: Qualified Code(s): R18.8 - Other ascites (2) Autoimmune hepatitis Assessment/Plan: On Prednisone now ( pt. was on Azathioprine untill 3 days ago- on hold per Dr. Hidalgo) Code(s): K75.4 - AUTOIMMUNE HEPATITIS (3) Dyspnea on exertion Assessment/Plan: likely secondary to diminished lung capacity, secondary to ascites Code(s): R06.09 - OTHER FORMS OF DYSPNEA (4) Acute kidney injury Assessment/Plan: Likely secondary to low renal flow secondary to ascites. To f/u labs Renal consult appreciated. Code(s): N17.9 - ACUTE KIDNEY FAILURE, UNSPECIFIED (5) Leukocytosis Assessment/Plan: ID consult appreciated, case was reviewed with DR. Anglin Stable, elevated ( pt was on High dose of Prednisone for weeks) to f/u CX Code(s): D72.829 - ELEVATED WHITE BLOOD CELL COUNT, UNSPECIFIED Qualifiers: Qualified Code(s): D72.829 - Elevated white blood cell count, unspecified (6) Obesity Code(s): E66.9 - OBESITY, UNSPECIFIED Assessment/Plan Right leg DVT- on IV heparin drip; to f/u labs ( not able to add this dg. to problem list- button not working) Rheum Consult appreciated AM labs
--- NOTE | 2016-08-15 09:08 | PN ---
Progress Note (short form) - Note Progress Note: feels a bit better no abdominal pain Vital Signs Period Temp Pulse Resp BP Sys/Vargas Pulse Ox Last 24 Hr 97.9 F-98.3 F 86-105 18-20 122-142/59-74 95 cor-rrr lungs decreased bs at bases abd +fluid, nontender ext +edema CBC, BMP 08/15/16 06:10 08/15/16 06:10 albumin is 1.9 Microbiology 08/12/16 20:23 Blood - Peripheral Venous Blood Culture - Preliminary NO GROWTH OBTAINED AFTER 48 HOURS, INCUBATION TO CONTINUE FOR 3 DAYS. 08/12/16 20:23 Blood - Peripheral Venous Blood Culture - Preliminary NO GROWTH OBTAINED AFTER 48 HOURS, INCUBATION TO CONTINUE FOR 3 DAYS. a/p leukocytosis-autoimmune hepatitis on prednisone ?sbp ?uti ?steroids continue rocephin, f/u cultures if cultures are negative of peritoeneal fluid would d/c antibiotics strong family history of autoimmune disease reports remote TB exposure as child to relative with TB never treated was observed in [place] for three months as a child! check quantiferon gold autoimmune hepatitis +ADOLFO new DVT on heparin
[2016-08-15 10:16] LABS: ERYTHROCYTE SEDIMENTATION RATE 27 mm/hr (0-30)
--- NOTE | 2016-08-15 15:41 | CON.GI ---
Consult Consult Specialty:: Gastroenterology Referred by:: Anabel Ariza MD - History of Present Illness History of Present Illness: 76 y/o Female with PMH od Autoiimune Hepatitis associated with severe elevation of LFTS received Prednisone and Immuran as an outpatient. This resulted in normalization of her LFTS. The immuran was discontinued as patient developed and cramps, leg pain and worsening leg edema. One week prior to her admission, she developed intermittent abdominal pain and Leg pain. On admission she underwent paracentesis which revealed markedly elevated WBC. - Past Medical History Cardio/Vascular: Yes: HTN Gastrointestinal: Yes: GERD Hepatobiliary: Yes: Other (Autoimmune Hepatitis) Endocrine: Yes: Other (Obesity) - Alcohol/Substance Use Hx Alcohol Use: No - Smoking History Smoking history: Never smoked Have you smoked in the past 12 months: No Home Medications - Allergies Allergies/Adverse Reactions: Allergies Allergy/AdvReac Type Severity Reaction Status Date / Time NSAIDS (Non-Steroidal Allergy Severe Difficulty Verified 08/12/16 16:59 Anti-Inflamma Breathing - Home Medications Home Medications: Ambulatory Orders Azathioprine [Imuran] 50 mg PO BID 08/12/16 Furosemide [Lasix -] 20 mg PO DAILY 08/12/16 Hydrochlorothiazide 25 mg PO DAILY 08/12/16 Metoprolol Tartrate [Lopressor -] 50 mg PO BID 08/12/16 Omeprazole 40 mg PO DAILY 08/12/16 Prednisone [Deltasone -] 60 mg PO DAILY 08/12/16 Family Disease History - Family Disease History Family Disease History: Other: Mother (Lupus and dies fo lupus encephalitis), Sister (Graves disease) Other Family History: ANother sister of nsulin dependent diabetes, Review of Systems - Review of Systems Constitutional: denies: Fever HENT: denies: Difficult Swallowing Neck: denies: Decreased ROM Cardiovascular: denies: Chest Pain Respiratory: denies: SOB Gastrointestinal: reports: Abdominal Pain. denies: Bloating, Constipation, Diarrhea, Dysphagia, Melena, Nausea, Rectal Bleeding, Vomiting Musculoskeletal: reports: Other (bilateral leg edema) Physical Exam-GI Vital Signs: Vital Signs Temperature 97.5 F L 08/15/16 14:51 Pulse Rate 91 H 08/15/16 14:51 Respiratory Rate 18 08/15/16 14:51 Blood Pressure 120/71 08/15/16 14:51 O2 Sat by Pulse Oximetry (%) 95 08/14/16 21:00 Constitutional: Yes: Well Nourished Eyes: Yes: Conjunctiva Clear HENT: Yes: Atraumatic Neck: Yes: Supple Cardiovascular: Yes: Regular Rate and Rhythm Respiratory: Yes: CTA Bilaterally Gastrointestinal Inspection: Yes: Ascites ...Palpate: Yes: Soft, Tenderness (--mild diffuse). No: Firm/Rigid, Guarding, Hepatomegaly, Mass, Pulsatile Mass, Splenomegaly Labs: CBC, BMP 08/15/16 06:10 08/15/16 06:10 INR, PTT INR 1.04 (0.82-1.09) 08/14/16 14:55 Ambulatory Orders Azathioprine [Imuran] 50 mg PO BID 08/12/16 Furosemide [Lasix -] 20 mg PO DAILY 08/12/16 Hydrochlorothiazide 25 mg PO DAILY 08/12/16 Metoprolol Tartrate [Lopressor -] 50 mg PO BID 08/12/16 Omeprazole 40 mg PO DAILY 08/12/16 Prednisone [Deltasone -] 60 mg PO DAILY 08/12/16 Current Medications Generic Name Dose Route Start Last Admin Trade Name Freq PRN Reason Stop Dose Admin Furosemide 40 mg 08/15/16 06:00 08/15/16 14:34 Lasix Injection - IVPUSH 40 mg BID@0600,1400 [facility] Administration Heparin Sodium (Porcine) 5,000 unit 08/14/16 14:55 Heparin - IVPUSH PRN PRN Heparin Sodium (Porcine) 1,000 unit 08/14/16 14:55 Heparin - IVPUSH PRN PRN Ceftriaxone Sodium 50 mls @ 100 mls/hr 08/13/16 16:15 08/15/16 09:03 Rocephin 1gm Ivpb (Pre-Docked) IVPB 100 mls/hr DAILY [facility] Administration Heparin Sodium/Dextrose 500 mls @ 20 mls/hr 08/14/16 15:00 08/15/16 10:25 Heparin Infusion - IVPB 900 units/hr TITR [facility] Titration Protocol 1,000 UNITS/HR Metoprolol Tartrate 50 mg 08/12/16 22:45 08/15/16 09:03 Lopressor - PO 50 mg BID [facility] Administration Pantoprazole Sodium 40 mg 08/13/16 10:00 08/15/16 09:03 Protonix - PO 40 mg DAILY [facility] Administration Prednisone 20 mg 08/14/16 10:00 08/15/16 09:03 Deltasone - PO 20 mg DAILY [facility] Administration Spironolactone 25 mg 08/13/16 18:00 08/15/16 09:03 Aldactone - PO 25 mg DAILY [facility] Administration Problem List - Problems (1) Autoimmune hepatitis Assessment/Plan: R> markedly improved ok to decrease Prednisone to 10mg daily, no evidence of Hepatic of Hepatic failure Code(s): K75.4 - AUTOIMMUNE HEPATITIS (2) Ascites Assessment/Plan: associated with elevated WBC r/o intra abdominal abscess R> continue Rocephin add Flagyl ct of abdomen to rule out intra abdominal abscess Code(s): R18.8 - OTHER ASCITES Qualifiers: Ascites type: other type
[2016-08-15] MEDS: ACETAMINOPHEN 325 MG TABLET (FP) PO PRN (16:07)
[2016-08-15] MEDS: HEPARIN INFUSION - 500 ML IVPB SCH (16:09)
--- NOTE | 2016-08-15 16:50 | PN ---
Progress Note, Physician Chief Complaint: Patient with autoimmune Hepatitis, New Right LE DVT... On IV Heparin W/U for coagulopathy in progress. Seen By GI... For CT scan of the abdomen and V/Q scan No urinary complaints. Has c/o Left calf cramps. BUT NO tenderness or swelling of the left calf. - Current Medication List Current Medications: Active Medications Acetaminophen (Tylenol -) 650 mg PO Q8H PRN PRN Reason: PAIN Last Admin: 08/15/16 16:07 Dose: 650 mg Albumin Human (Albumin Human 25%) 12.5 gm IVPB Q30M [facility] Stop: 08/15/16 17:31 Furosemide (Lasix Injection -) 40 mg IVPUSH BID@0600,1400 [facility] Last Admin: 08/15/16 14:34 Dose: 40 mg Heparin Sodium (Porcine) (Heparin -) 5,000 unit IVPUSH PRN PRN Heparin Sodium (Porcine) (Heparin -) 1,000 unit IVPUSH PRN PRN Ceftriaxone Sodium (Rocephin 1gm Ivpb (Pre-Docked)) 50 mls @ 100 mls/hr IVPB DAILY [facility] Last Admin: 08/15/16 09:03 Dose: 100 mls/hr Heparin Sodium/Dextrose (Heparin Infusion -) 500 mls @ 20 mls/hr IVPB TITR [facility] ; 1,000 UNITS/HR PRN Reason: Protocol Last Admin: 08/15/16 16:09 Dose: 18 mls/hr Metronidazole (Flagyl 500mg Premixed Ivpb -) 100 mls @ 100 mls/hr IVPB Q8H-IV [facility] Metoprolol Tartrate (Lopressor -) 50 mg PO BID [facility] Last Admin: 08/15/16 09:03 Dose: 50 mg Pantoprazole Sodium (Protonix -) 40 mg PO DAILY [facility] Last Admin: 08/15/16 09:03 Dose: 40 mg Prednisone (Deltasone -) 20 mg PO DAILY [facility] Last Admin: 08/15/16 09:03 Dose: 20 mg Spironolactone (Aldactone -) 25 mg PO DAILY [facility] Last Admin: 08/15/16 09:03 Dose: 25 mg - Objective Vital Signs: Vital Signs Temperature 97.5 F L 08/15/16 14:51 Pulse Rate 91 H 08/15/16 14:51 Respiratory Rate 18 08/15/16 14:51 Blood Pressure 120/71 08/15/16 14:51 O2 Sat by Pulse Oximetry (%) 92 L 08/15/16 09:00 Constitutional: Yes: Well Nourished, Anxious Eyes: Yes: Conjunctiva Clear HENT: Yes: Atraumatic Neck: Yes: WNL Cardiovascular: Yes: Regular Rate and Rhythm Respiratory: Yes: WNL Gastrointestinal: Yes: Normal Bowel Sounds, Abdomen, Obese Genitourinary: Yes: WNL Extremities: Yes: Other (Right Calf muscle tenderness, selling and Brian's sign. No Left calf tenderness.) Labs: CBC, BMP 08/15/16 06:10 08/15/16 06:10 INR, PTT INR 1.04 (0.82-1.09) 08/14/16 14:55 Problem List - Problems (1) Acute diastolic heart failure Code(s): I50.31 - ACUTE DIASTOLIC (CONGESTIVE) HEART FAILURE (2) Acute kidney injury Code(s): N17.9 - ACUTE KIDNEY FAILURE, UNSPECIFIED (3) Ascites Code(s): R18.8 - OTHER ASCITES Qualifiers: Qualified Code(s): R18.8 - Other ascites (4) Autoimmune hepatitis Code(s): K75.4 - AUTOIMMUNE HEPATITIS (5) CHF (congestive heart failure) Code(s): I50.9 - HEART FAILURE, UNSPECIFIED Qualifiers: Qualified Code(s): I50.9 - Heart failure, unspecified (6) Deep venous embolism and thrombosis of right lower extremity Code(s): I82.401 - ACUTE EMBOLISM AND THOMBOS UNSP DEEP VEINS OF R LOW EXTREM (7) Hyperkalemia Code(s): E87.5 - HYPERKALEMIA Assessment/Plan 76 y/o female with autoimmune Hepatitis...has developed acute Deep venous thrombosis of the right lower extremity. Renal functions have minimally wosened over the past 24 hours. ? Hemodynamic. Serum Potassium normal. PLAN: IV Heparin infusion after bolus. Monitor the PTT daily W/u for Coagulation factors in progress. For CT scan of abdomen and VQ scan. Will monitor the renal functions with you. Cherise Ovalle MD
--- NOTE | 2016-08-15 17:16 | PN ---
Progress Note, Physician History of Present Illness: Abd distension and dyspnea improving with diuresis, RLE DVT diagnosed on vascular U/S. - Current Medication List Current Medications: Active Medications Acetaminophen (Tylenol -) 650 mg PO Q8H PRN PRN Reason: PAIN Last Admin: 08/15/16 16:07 Dose: 650 mg Albumin Human (Albumin Human 25%) 12.5 gm IVPB 0530,1330 [facility] Stop: 08/17/16 13:31 Furosemide (Lasix Injection -) 40 mg IVPUSH BID@0600,1400 [facility] Last Admin: 08/15/16 14:34 Dose: 40 mg Heparin Sodium (Porcine) (Heparin -) 5,000 unit IVPUSH PRN PRN Heparin Sodium (Porcine) (Heparin -) 1,000 unit IVPUSH PRN PRN Ceftriaxone Sodium (Rocephin 1gm Ivpb (Pre-Docked)) 50 mls @ 100 mls/hr IVPB DAILY [facility] Last Admin: 08/15/16 09:03 Dose: 100 mls/hr Heparin Sodium/Dextrose (Heparin Infusion -) 500 mls @ 20 mls/hr IVPB TITR [facility] ; 1,000 UNITS/HR PRN Reason: Protocol Last Admin: 08/15/16 16:09 Dose: 18 mls/hr Metronidazole (Flagyl 500mg Premixed Ivpb -) 100 mls @ 100 mls/hr IVPB Q8H-IV [facility] Metoprolol Tartrate (Lopressor -) 50 mg PO BID [facility] Last Admin: 08/15/16 09:03 Dose: 50 mg Pantoprazole Sodium (Protonix -) 40 mg PO DAILY [facility] Last Admin: 08/15/16 09:03 Dose: 40 mg Prednisone (Deltasone -) 20 mg PO DAILY [facility] Last Admin: 08/15/16 09:03 Dose: 20 mg Spironolactone (Aldactone -) 25 mg PO DAILY [facility] Last Admin: 08/15/16 09:03 Dose: 25 mg - Objective Vital Signs: Vital Signs Temperature 97.5 F L 08/15/16 14:51 Pulse Rate 91 H 08/15/16 14:51 Respiratory Rate 18 08/15/16 14:51 Blood Pressure 120/71 08/15/16 14:51 O2 Sat by Pulse Oximetry (%) 92 L 08/15/16 09:00 Constitutional: Yes: No Distress, Calm Neck: Yes: Supple Cardiovascular: Yes: Regular Rate and Rhythm Respiratory: Yes: Regular, Diminished Gastrointestinal: Yes: Normal Bowel Sounds, Soft, Abdomen, Obese Edema: Yes Edema: LLE: 2+, RLE: 2+ Labs: CBC, BMP 08/15/16 06:10 08/15/16 06:10 INR, PTT INR 1.04 (0.82-1.09) 08/14/16 14:55 Problem List - Problems (1) Ascites Code(s): R18.8 - OTHER ASCITES Qualifiers: Qualified Code(s): R18.8 - Other ascites (2) Acute diastolic heart failure Code(s): I50.31 - ACUTE DIASTOLIC (CONGESTIVE) HEART FAILURE (3) Hypertensive cardiomyopathy Code(s): I11.9 - HYPERTENSIVE HEART DISEASE WITHOUT HEART FAILURE I42.9 - CARDIOMYOPATHY, UNSPECIFIED Qualifiers: Qualified Code(s): I11.0 - Hypertensive heart disease with heart failure (4) Autoimmune hepatitis Code(s): K75.4 - AUTOIMMUNE HEPATITIS (5) Peripheral edema Code(s): R60.9 - EDEMA, UNSPECIFIED (6) Acute kidney injury Code(s): N17.9 - ACUTE KIDNEY FAILURE, UNSPECIFIED (7) Leukocytosis Code(s): D72.829 - ELEVATED WHITE BLOOD CELL COUNT, UNSPECIFIED Qualifiers: Qualified Code(s): D72.829 - Elevated white blood cell count, unspecified (8) Deep venous embolism and thrombosis of right lower extremity Code(s): I82.401 - ACUTE EMBOLISM AND THOMBOS UNSP DEEP VEINS OF R LOW EXTREM Assessment/Plan 01/31/2015 Stress echo: Normal LV size and fxn, mild MR, no ischemia 1. Ascites, edema post paracentesis, etiology to be determined diastolic failure vs. serositis vs hepatic failure 2. HTN/HCVD 3. Autoimmune hepatitis 4. Acute kidney injury 5. Leukocytosis referable to chronic steroids vs SBP vs UTI 6. RLE DVT P:1. F/u ascites fluid, empiric coverage SBP f/u C&S, check SAAG ratio, CT abd r /o intraabdominal abscess 2. Decrease Lasix 40 IV qd and Aldactone 25 qd with monitor diuretic response, renal fxn, and electrolytes 3. Continue Lopressor 50 bid, eventual HANS-I/ARB once renal fxn stabilizes 4. IV heparin gtt, prednisone taper with GI protection
[2016-08-15] MEDS: METRONIDAZOLE 500 MG PREMIXED 100 ML IVPB SCH ×2 (17:23→17:28)
[2016-08-15 21:39] LABS: URINE APPEARANCE SLCLOUDY; URINE BILIRUBIN NEGATIVE (NEGATIVE); URINE BLOOD 1+ (NEGATIVE); URINE COLOR YELLOW; URINE GLUCOSE (UA) NEGATIVE (NEGATIVE); URINE KETONE NEGATIVE (NEGATIVE); URINE LEUK ESTERASE 2+ (NEGATIVE); URINE NITRITE NEGATIVE (NEGATIVE); URINE PROTEIN NEGATIVE (NEGATIVE); URINE UROBILINOGEN NORMAL E.U./dl (0.2-1.0)
[2016-08-15 21:40] LABS: URINE HYALINE CAST 47 /lpf; URINE MUCUS RARE; URINE RBC 13 /hpf (0-3); URINE WBC 78 /hpf (3-5)
[2016-08-16] MEDS: METRONIDAZOLE 500 MG PREMIXED 100 ML IVPB SCH ×3 (01:29→18:57)
[2016-08-16] MEDS: ALBUMIN HUMAN 25% 12.5 GM/50 ML VIAL IVPB SCH ×3 (05:35→20:41)
[2016-08-16] MEDS: FUROSEMIDE 40 MG/4 ML INJECTABLE VIAL IVPUSH SCH ×2 (06:03→15:10)
[2016-08-16 08:21] LABS: MCH 29.9 pg (25.7-33.7); MCHC 33.1 g/dl (32.0-36.0); MEAN CELL VOLUME 90.4 fl (80-96); MEAN PLT VOLUME 9.2 fl (7.5-11.1); PLATELET COUNT 277 K/MM3 (134-434); RDW 16.1 % (11.6-15.6); WHITE BLOOD COUNT 24.4 K/mm3 (4.0-10.0)
[2016-08-16 08:36] LABS: ALBUMIN 2.2 g/dl (3.4-5.0); CALCIUM 7.8 mg/dL (8.5-10.1)
[2016-08-16 08:40] LABS: BILIRUBIN,TOTAL 0.4 mg/dL (0.2-1.0); COCKROFT - GAULT 36.5245; CREATININE 2.3 mg/dL (0.55-1.02); TOT PROT 5.1 g/dl (6.4-8.2)
[2016-08-16] MEDS: HEPARIN INFUSION - 500 ML IVPB SCH ×2 (09:02→17:25)
--- NOTE | 2016-08-16 09:19 | PN ---
Progress Note, Physician Chief Complaint: Events noted Less SOB and less abdominal distension History of Present Illness: Patient was seen and examined. Awake and alert. Chart was reviewed Denies chest pain, less SOB and no palpitations Post paracentesis Post RLE DVT - Current Medication List Current Medications: Active Medications Acetaminophen (Tylenol -) 650 mg PO Q8H PRN PRN Reason: PAIN Last Admin: 08/15/16 16:07 Dose: 650 mg Albumin Human (Albumin Human 25%) 12.5 gm IVPB 0530,1330 [facility] Stop: 08/17/16 13:31 Last Admin: 08/16/16 05:35 Dose: 12.5 gm Furosemide (Lasix Injection -) 40 mg IVPUSH BIDLASIX [facility] Last Admin: 08/16/16 06:03 Dose: 40 mg Heparin Sodium (Porcine) (Heparin -) 5,000 unit IVPUSH PRN PRN Heparin Sodium (Porcine) (Heparin -) 1,000 unit IVPUSH PRN PRN Last Admin: 08/16/16 09:05 Dose: 1,000 unit Ceftriaxone Sodium (Rocephin 1gm Ivpb (Pre-Docked)) 50 mls @ 100 mls/hr IVPB DAILY [facility] Last Admin: 08/15/16 09:03 Dose: 100 mls/hr Heparin Sodium/Dextrose (Heparin Infusion -) 500 mls @ 20 mls/hr IVPB TITR [facility] ; 1,000 UNITS/HR PRN Reason: Protocol Last Admin: 08/16/16 09:02 Dose: 20 mls/hr Metronidazole (Flagyl 500mg Premixed Ivpb -) 100 mls @ 100 mls/hr IVPB Q8H-IV [facility] Last Admin: 08/16/16 01:29 Dose: 100 mls/hr Metoprolol Tartrate (Lopressor -) 50 mg PO BID [facility] Last Admin: 08/15/16 21:31 Dose: 50 mg Pantoprazole Sodium (Protonix -) 40 mg PO DAILY [facility] Last Admin: 08/15/16 09:03 Dose: 40 mg Prednisone (Deltasone -) 20 mg PO DAILY [facility] Last Admin: 08/15/16 09:03 Dose: 20 mg Spironolactone (Aldactone -) 25 mg PO DAILY [facility] Last Admin: 08/15/16 09:03 Dose: 25 mg - Objective Vital Signs: Vital Signs Temperature 98.0 F 08/16/16 06:00 Pulse Rate 110 H 08/16/16 06:00 Respiratory Rate 22 08/16/16 06:00 Blood Pressure 143/76 08/16/16 06:00 O2 Sat by Pulse Oximetry (%) 93 L 08/15/16 21:00 Neck: Yes: Supple Cardiovascular: Yes: Regular Rate and Rhythm, S1, S2 Respiratory: Yes: Diminished Gastrointestinal: Yes: Normal Bowel Sounds, Soft, Ascites, Distention Edema: Yes Edema: LLE: 1+, RLE: 1+ Labs: CBC, BMP 08/16/16 05:58 08/16/16 05:58 INR, PTT INR 1.04 (0.82-1.09) 08/14/16 14:55 Assessment/Plan 1. Ascites, edema post paracentesis, etiology to be determined diastolic failure vs. serositis vs hepatic failure - pathology pending 2. HTN/HCVD 3. Autoimmune hepatitis 4. Acute kidney injury 5. Leukocytosis referable to chronic steroids vs SBP vs UTI 6. RLE DVT PLAN: 1. Follow up ascites fluid, empiric coverage for SBP with antibiotics f/u C&S. CT abdomen noted 2. Continue Lasix 40 IV mg qd and Aldactone 25 mg qd with monitoring renal function and electrolytes 3. Continue Lopressor 50 mg bid and eventual HANS-I/ARB once renal function stabilizes 4. IV heparin drip and eventual oral anticoagulation and Prednisone taper with GI protection Further plans are to follow Juan C Santoyo MD
[2016-08-16] MEDS ORDERED: FUROSEMIDE 40 MG/4 ML INJECTABLE VIAL IVPUSH SCH (10:00)
[2016-08-16 10:41] LABS: PLATELET ESTIMATE ADEQUATE (NORMAL)
[2016-08-16] MEDS: SPIRONOLACTONE 25 MG TABLET (FP) PO SCH (12:18)
[2016-08-16] MEDS: PANTOPRAZOLE 40 MG TABLET (FP) PO SCH (12:18)
[2016-08-16] MEDS: predniSONE 20 MG TABLET (UD) PO SCH (12:19)
[2016-08-16] MEDS: METOPROLOL TARTRATE 50 MG TABLET (FP) PO SCH ×2 (12:20→21:41)
[2016-08-16] MEDS: CEFTRIAXONE 50 ML IVPB SCH (12:21)
--- NOTE | 2016-08-16 14:10 | PN ---
Progress Note, Physician Chief Complaint: Patient with autoimmune Hepatitis, On IV Heparin for DVT. W/U for coagulopathy in progress. CT Scan of abdomen: Ascites, Fatty liver No urinary complaints. - Current Medication List Current Medications: Active Medications Acetaminophen (Tylenol -) 650 mg PO Q8H PRN PRN Reason: PAIN Last Admin: 08/15/16 16:07 Dose: 650 mg Albumin Human (Albumin Human 25%) 12.5 gm IVPB 0530,1330 [facility] Stop: 08/17/16 13:31 Last Admin: 08/16/16 05:35 Dose: 12.5 gm Furosemide (Lasix Injection -) 40 mg IVPUSH BIDLASIX [facility] Last Admin: 08/16/16 06:03 Dose: 40 mg Heparin Sodium (Porcine) (Heparin -) 5,000 unit IVPUSH PRN PRN Heparin Sodium (Porcine) (Heparin -) 1,000 unit IVPUSH PRN PRN Last Admin: 08/16/16 09:05 Dose: 1,000 unit Ceftriaxone Sodium (Rocephin 1gm Ivpb (Pre-Docked)) 50 mls @ 100 mls/hr IVPB DAILY [facility] Last Admin: 08/16/16 12:21 Dose: 100 mls/hr Heparin Sodium/Dextrose (Heparin Infusion -) 500 mls @ 20 mls/hr IVPB TITR [facility] ; 1,000 UNITS/HR PRN Reason: Protocol Last Admin: 08/16/16 09:02 Dose: 20 mls/hr Metronidazole (Flagyl 500mg Premixed Ivpb -) 100 mls @ 100 mls/hr IVPB Q8H-IV [facility] Last Admin: 08/16/16 12:21 Dose: 100 mls/hr Metoprolol Tartrate (Lopressor -) 50 mg PO BID [facility] Last Admin: 08/16/16 12:20 Dose: 50 mg Pantoprazole Sodium (Protonix -) 40 mg PO DAILY [facility] Last Admin: 08/16/16 12:18 Dose: 40 mg Prednisone (Deltasone -) 20 mg PO DAILY [facility] Last Admin: 08/16/16 12:19 Dose: 20 mg Spironolactone (Aldactone -) 25 mg PO DAILY [facility] Last Admin: 08/16/16 12:18 Dose: 25 mg - Objective Vital Signs: Vital Signs Temperature 98.0 F 08/16/16 06:00 Pulse Rate 110 H 08/16/16 06:00 Respiratory Rate 22 08/16/16 06:00 Blood Pressure 143/76 08/16/16 06:00 O2 Sat by Pulse Oximetry (%) 93 L 08/15/16 21:00 Constitutional: Yes: Well Nourished, No Distress, Anxious Eyes: Yes: WNL HENT: Yes: WNL Neck: Yes: Supple Cardiovascular: Yes: S1, S2 Respiratory: Yes: Regular, CTA Bilaterally, Diminished Gastrointestinal: Yes: Normal Bowel Sounds, Soft, Abdomen, Obese Extremities: Yes: Other (Calf muscle tenderness Right.) Edema: Yes Edema: RLE: 1+ Neurological: Yes: Alert, Oriented Psychiatric: Yes: Alert, Oriented Labs: CBC, BMP 08/16/16 05:58 08/16/16 05:58 INR, PTT INR 1.04 (0.82-1.09) 08/14/16 14:55 Problem List - Problems (1) Acute diastolic heart failure Code(s): I50.31 - ACUTE DIASTOLIC (CONGESTIVE) HEART FAILURE (2) Acute kidney injury Code(s): N17.9 - ACUTE KIDNEY FAILURE, UNSPECIFIED (3) Ascites Code(s): R18.8 - OTHER ASCITES Qualifiers: Qualified Code(s): R18.8 - Other ascites (4) Autoimmune hepatitis Code(s): K75.4 - AUTOIMMUNE HEPATITIS (5) CHF (congestive heart failure) Code(s): I50.9 - HEART FAILURE, UNSPECIFIED Qualifiers: Qualified Code(s): I50.9 - Heart failure, unspecified (6) Deep venous embolism and thrombosis of right lower extremity Code(s): I82.401 - ACUTE EMBOLISM AND THOMBOS UNSP DEEP VEINS OF R LOW EXTREM (7) Hyperkalemia Code(s): E87.5 - HYPERKALEMIA Assessment/Plan 76 y/o female with autoimmune Hepatitis...has developed acute Deep venous thrombosis of the right lower extremity. Renal functions have minimally worsened over the past 24 hours. ? Hemodynamic. Serum Potassium normal. PLAN: IV Heparin infusion after bolus. Monitor the PTT daily W/u for Coagulation factors in progress. Will continue the Albumin and Lasix BID Will monitor the renal functions with you. Cherise Ovalle MD
--- NOTE | 2016-08-16 15:29 | PN ---
Teaching Attending Note Name of Resident: Ledy Weir ATTENDING PHYSICIAN STATEMENT I saw and evaluated the patient. I reviewed the resident's note and discussed the case with the resident. I agree with the resident's findings and plan as documented. SUBJECTIVE: OBJECTIVE: ASSESSMENT AND PLAN: leukocytosis ascites autoimmune hepatitis DVT imaging studies noted- hida normal, no abscess on ct scan would favor stopping antibiotics in am if okay with GI
--- NOTE | 2016-08-16 15:53 | PN ---
Physical Exam: SUBJECTIVE: Patient seen and examined. The pt is feeling good today. She is complaining of abdominal discomfort with movement. She denies nausea, vomiting, diarrhea, constipation. She denies calf tenderess, fever, chills. She denies dysuria, increased frequency. She had HIDA scan done today. OBJECTIVE: Vital Signs Period Temp Pulse Resp BP Sys/Vargas Pulse Ox Last 24 Hr 97.6 F-98.0 F 93-110 18-22 143-157/72-76 93 GENERAL: The patient is awake, alert, and fully oriented, in no acute distress. HEAD: Normal with no signs of trauma. EYES: PERRL, extraocular movements intact, sclera anicteric, conjunctiva clear. No ptosis. ENT: Ears normal, nares patent, oropharynx clear without exudates, moist mucous membranes. NECK: Trachea midline, full range of motion, supple. LUNGS: Breath sounds equal, clear to auscultation bilaterally, no wheezes, no crackles, no accessory muscle use. HEART: Regular rate and rhythm, S1, S2 without murmur, rub or gallop. ABDOMEN: Soft, no tenderness, distended, normoactive bowel sounds, no guarding, no rebound, hepatosplenomegaly, no masses. EXTREMITIES: 2+ pulses, warm, no edema. NEUROLOGICAL:No facial asymmetry. Normal speech, gait not observed. PSYCH: Normal mood, normal affect. SKIN: Warm, dry, normal turgor, no rashes or lesions noted Laboratory Results - last 24 hr 08/15/16 08/16/16 08/16/16 19:30 05:58 05:58 WBC 24.4 H RBC 4.05 Hgb 12.1 Hct 36.7 MCV 90.4 MCHC 33.1 RDW 16.1 H Plt Count 277 MPV 9.2 Neutrophils % 88.0 H Lymphocytes % 9.0 D Monocytes % 3.0 L Differential Comment Manual diff done Platelet Estimate Adequate PTT (Actin FS) 43.1 H Sodium Potassium Chloride Carbon Dioxide Anion Gap BUN Creatinine Creat Clearance w eGFR Random Glucose Calcium Total Bilirubin AST ALT Alkaline Phosphatase Total Protein Albumin Urine Color Yellow Urine Appearance Slcloudy Urine pH 5.0 Ur Specific [place] 1.013 Urine Protein Negative Urine Glucose (UA) Negative Urine Ketones Negative Urine Blood 1+ H Urine Nitrite Negative Urine Bilirubin Negative Urine Urobilinogen Normal Ur Leukocyte Esterase 2+ H Urine RBC 13 Urine WBC 78 Ur Epithelial Cells Few Hyaline Casts 47 Urine Mucus Rare 08/16/16 05:58 WBC RBC Hgb Hct MCV MCHC RDW Plt Count MPV Neutrophils % Lymphocytes % Monocytes % Differential Comment Platelet Estimate PTT (Actin FS) Sodium 133 L Potassium 4.9 Chloride 97 L Carbon Dioxide 23 Anion Gap 13 BUN 92 H Creatinine 2.3 H Creat Clearance w eGFR 20.56 Random Glucose 220 H Calcium 7.8 L Total Bilirubin 0.4 D AST 42 H ALT 15 Alkaline Phosphatase 81 Total Protein 5.1 L Albumin 2.2 L Urine Color Urine Appearance Urine pH Ur Specific [place] Urine Protein Urine Glucose (UA) Urine Ketones Urine Blood Urine Nitrite Urine Bilirubin Urine Urobilinogen Ur Leukocyte Esterase Urine RBC Urine WBC Ur Epithelial Cells Hyaline Casts Urine Mucus Active Medications Generic Name Dose Route Start Last Admin Trade Name Freq PRN Reason Stop Dose Admin Acetaminophen 650 mg 08/15/16 15:50 08/15/16 16:07 Tylenol - PO 650 mg Q8H PRN Administration PAIN Albumin Human 12.5 gm 08/16/16 05:30 08/16/16 15:07 Albumin Human 25% IVPB 08/17/16 13:31 12.5 gm 0530,1330 [facility] Administration Furosemide 40 mg 08/16/16 06:00 08/16/16 15:10 Lasix Injection - IVPUSH 40 mg BIDLASIX [facility] Administration Heparin Sodium (Porcine) 5,000 unit 08/14/16 14:55 Heparin - IVPUSH PRN PRN Heparin Sodium (Porcine) 1,000 unit 08/14/16 14:55 08/16/16 09:05 Heparin - IVPUSH 1,000 unit PRN PRN Administration Ceftriaxone Sodium 50 mls @ 100 mls/hr 08/13/16 16:15 08/16/16 12:21 Rocephin 1gm Ivpb (Pre-Docked) IVPB 100 mls/hr DAILY [facility] Administration Heparin Sodium/Dextrose 500 mls @ 20 mls/hr 08/14/16 15:00 08/16/16 09:02 Heparin Infusion - IVPB 20 mls/hr TITR [facility] Administration Protocol 1,000 UNITS/HR Metronidazole 100 mls @ 100 mls/hr 08/15/16 16:00 08/16/16 12:21 Flagyl 500mg Premixed Ivpb - IVPB 100 mls/hr Q8H-IV [facility] Administration Metoprolol Tartrate 50 mg 08/12/16 22:45 08/16/16 12:20 Lopressor - PO 50 mg BID [facility] Administration Pantoprazole Sodium 40 mg 08/13/16 10:00 08/16/16 12:18 Protonix - PO 40 mg DAILY [facility] Administration Prednisone 20 mg 08/14/16 10:00 08/16/16 12:19 Deltasone - PO 20 mg DAILY [facility] Administration Spironolactone 25 mg 08/13/16 18:00 08/16/16 12:18 Aldactone - PO 25 mg DAILY [facility] Administration ASSESSMENT/PLAN: 76 year old female with a PMH of HTN, GERGD, autoimmune hepatitis diagnosed in May 2016 who presents to the hospital complaining of SOB x 3 days. She was found to have ascites. 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 - New Patient This patient is new to me today: Yes Date on this admission: 08/16/16 - Critical Care Critical Care patient: No - Discharge Referral Referred to [facility] No
--- NOTE | 2016-08-16 16:03 | PN ---
Progress Note, Physician Chief Complaint: OOB to chair feels better less SOB no pains Higher WBC higher creatinine labs consults and tests reviewed and d/w pt - Current Medication List Current Medications: Active Medications Acetaminophen (Tylenol -) 650 mg PO Q8H PRN PRN Reason: PAIN Last Admin: 08/15/16 16:07 Dose: 650 mg Albumin Human (Albumin Human 25%) 12.5 gm IVPB 0530,1330 [facility] Stop: 08/17/16 13:31 Last Admin: 08/16/16 15:07 Dose: 12.5 gm Furosemide (Lasix Injection -) 40 mg IVPUSH BIDLASIX [facility] Last Admin: 08/16/16 15:10 Dose: 40 mg Heparin Sodium (Porcine) (Heparin -) 5,000 unit IVPUSH PRN PRN Heparin Sodium (Porcine) (Heparin -) 1,000 unit IVPUSH PRN PRN Last Admin: 08/16/16 09:05 Dose: 1,000 unit Ceftriaxone Sodium (Rocephin 1gm Ivpb (Pre-Docked)) 50 mls @ 100 mls/hr IVPB DAILY [facility] Last Admin: 08/16/16 12:21 Dose: 100 mls/hr Heparin Sodium/Dextrose (Heparin Infusion -) 500 mls @ 20 mls/hr IVPB TITR [facility] ; 1,000 UNITS/HR PRN Reason: Protocol Last Admin: 08/16/16 09:02 Dose: 20 mls/hr Metronidazole (Flagyl 500mg Premixed Ivpb -) 100 mls @ 100 mls/hr IVPB Q8H-IV [facility] Last Admin: 08/16/16 12:21 Dose: 100 mls/hr Metoprolol Tartrate (Lopressor -) 50 mg PO BID [facility] Last Admin: 08/16/16 12:20 Dose: 50 mg Pantoprazole Sodium (Protonix -) 40 mg PO DAILY [facility] Last Admin: 08/16/16 12:18 Dose: 40 mg Prednisone (Deltasone -) 20 mg PO DAILY [facility] Last Admin: 08/16/16 12:19 Dose: 20 mg Spironolactone (Aldactone -) 25 mg PO DAILY [facility] Last Admin: 08/16/16 12:18 Dose: 25 mg - Objective Vital Signs: Vital Signs Temperature 97.7 F 08/16/16 14:35 Pulse Rate 92 H 08/16/16 14:35 Respiratory Rate 20 08/16/16 14:35 Blood Pressure 143/76 08/16/16 06:00 O2 Sat by Pulse Oximetry (%) 93 L 08/15/16 21:00 Constitutional: Yes: No Distress, Calm Eyes: Yes: Conjunctiva Clear HENT: Yes: Atraumatic Neck: Yes: Supple Cardiovascular: Yes: Regular Rate and Rhythm Respiratory: Yes: CTA Bilaterally Gastrointestinal: Yes: Soft. No: Distention, Tenderness Genitourinary: No: CVA Tenderness - Left, CVA Tenderness - Right, Hematuria Musculoskeletal: No: Joint Stiffness, Joint Swelling Extremities: No: Cold, Cool Edema: Yes (both legs) Peripheral Pulses WNL: Yes Integumentary: No: Rash, Venous Stasis Changes Neurological: Yes: WNL, Alert, Oriented ...Motor Strength: WNL Psychiatric: Yes: WNL, Alert, Oriented. No: Agitated, Suicidal Ideation Labs: CBC, BMP 08/16/16 05:58 08/16/16 05:58 INR, PTT INR 1.04 (0.82-1.09) 08/14/16 14:55 - ....Imaging Other: Report Reviewed Assessment/Plan 76 year old woman with PMhx of Autoimmune hepatitis (on Prednisone/Azothiprine) , HTN, OA, obesity, GERD who presented with increased Abd and lower extremity swelling, liver cirrhosis on CT scan, Ascities s/p paracentesis, GI f/u worsening FARHEEN - renal f/u check echo r/o CHF, cardio f/u diuretics per renal and cardio, pt still is fluid overloaded but renal fct worse ; close labs f/u high WBC currently on iv ceftriaxone, ID f/u; heme eval d/w pt and staff
--- NOTE | 2016-08-16 18:17 | PN ---
GI Progress Note Subjective: patient has persistent pyuria microscopuic hematuria, 260 neutrophils in ascitic fluid, persistent leukocytosis - Objective Vital Signs: Vital Signs Temperature 97.7 F 08/16/16 14:35 Pulse Rate 92 H 08/16/16 14:35 Respiratory Rate 20 08/16/16 14:35 Blood Pressure 143/76 08/16/16 06:00 O2 Sat by Pulse Oximetry (%) 93 L 08/15/16 21:00 Constitutional: Well Nourished Eyes: Yes: Conjunctiva Clear HENT: Yes: Atraumatic Neck: Yes: Supple Cardiovascular: Yes: Regular Rate and Rhythm Respiratory: Yes: CTA Bilaterally ...Palpate: Yes: Soft. No: Firm/Rigid, Guarding, Hepatomegaly, Mass, Pulsatile Mass, Splenomegaly, Tenderness Edema: LLE: 4+, RLE: 4+ Labs: CBC, BMP 08/16/16 05:58 08/16/16 05:58 INR, PTT INR 1.04 (0.82-1.09) 08/14/16 14:55 Urine Test Results Urine Color Yellow 08/15/16 19:30 Urine Appearance Slcloudy 08/15/16 19:30 Urine pH 5.0 (5.0-8.0) 08/15/16 19:30 Ur Specific [place] 1.013 (1.001-1.035) 08/15/16 19:30 Urine Protein Negative (NEGATIVE) 08/15/16 19:30 Urine Glucose (UA) Negative (NEGATIVE) 08/15/16 19:30 Urine Ketones Negative (NEGATIVE) 08/15/16 19:30 Urine Blood 1+ (NEGATIVE) H 08/15/16 19:30 Urine Nitrite Negative (NEGATIVE) 08/15/16 19:30 Urine Bilirubin Negative (NEGATIVE) 08/15/16 19:30 Ur Leukocyte Esterase 2+ (NEGATIVE) H 08/15/16 19:30 Urine RBC 13 /hpf (0-3) 08/15/16 19:30 Urine WBC 78 /hpf (3-5) 08/15/16 19:30 Ur Epithelial Cells Few /hpf (FEW) 08/15/16 19:30 Urine Bacteria Few /hpf (NONE SEEN) 08/13/16 09:35 Urine Mucus Rare 08/15/16 19:30 Problem List - Problems (1) Autoimmune hepatitis Code(s): K75.4 - AUTOIMMUNE HEPATITIS (2) Ascites Assessment/Plan: associated with 260 neutrophils, negative ct for abscess possible spontaneous bacterial peritonitis. possible glomerulonephritis vs pyeloonephritis R> reviewed ID [id number] will consider to change coverage rather than to discontinue the antibiotics will decrease lasix because of worsening renal function will increase albumin dose and observe for 24 hours Code(s): R18.8 - OTHER ASCITES Qualifiers: Qualified Code(s): R18.8 - Other ascites
--- NOTE | 2016-08-16 22:07 | CONSULT ---
Consult - text type - Consultation Consultation Note: Patient seen and examined 76 year old female with hypertension, macular degeneration and autoimmune hepatitis, admitted with acute decompensation. HPI. The patient has a mcc history of muscle cramps, and lower ext. swelling since 10/2015,and recently the problem became more severe, therefore on 08/02/16 she discontinue Furosemide and Lasix. Initially the cramps improved, however in the last week she has had progression of abdominal distention and shortness of breath. The patient was admitted on 08/12/16 and on 08/13/16 she had paracenthesis of 4 L. Duplex US positive for DVT in the right leg. Creatinine was 1.8 and urinalysis with LE 3+, protein 1+ and blood 2+. AST 43 and ALT 15. The patient was started on diuretics,metoprolol, heparin and antibiotics. At the present time she feels better, however she still ahs significant ascitis. Autoimmune hepatitis. Rule out other connective tissue disease. The patient has history of elevation of AST and ALT since 2009. Liver biopsy (06/29/16): chronic hepatitis with moderate activity (grade 3 to 4) and transition to cirrhosis (grade 3 to 4 ) consistent with autoimmune hepatitis. She has history of Raynaud's phenomenon since she was a young adult and she denies joint pain, skin rash, oral ulcers, photosensitivity, dry eyes, dry mouth, hair loss or fever. Laboratory work-up from 07/02/16 revealed a creatinine of 0.8 and urinalysis had blood 1+, LE trace and protein negative. She was started on Prednisone 60 mg/d which was tapered down and on Azathioprine 100 mg/d since . - History Source History Provided By: Patient, Medical Record - Past Medical History Cardio/Vascular: Yes: HTN Gastrointestinal: Yes: GERD Hepatobiliary: Yes: Other (Autoimmune Hepatitis) Endocrine: Yes: Other (Obesity) - Smoking History Smoking history: Never smoked Home Medications - Allergies Allergies/Adverse Reactions: Allergies Allergy/AdvReac Type Severity Reaction Status Date / Time NSAIDS (Non-Steroidal Allergy Severe Difficulty Verified 08/12/16 16:59 Anti-Inflamma Breathing - Home Medications Home Medications: Ambulatory Orders Azathioprine [Imuran] 50 mg PO BID 08/12/16 Furosemide [Lasix -] 20 mg PO DAILY 08/12/16 Hydrochlorothiazide 25 mg PO DAILY 08/12/16 Metoprolol Tartrate [Lopressor -] 50 mg PO BID 08/12/16 Omeprazole 40 mg PO DAILY 08/12/16 Prednisone [Deltasone -] 60 mg PO DAILY 08/12/16 Home Medication List Medication Instructions Recorded Confirmed Type Azathioprine [Imuran] 50 mg PO BID 08/12/16 08/12/16 History Furosemide [Lasix -] 20 mg PO DAILY 08/12/16 08/12/16 History Hydrochlorothiazide 25 mg PO DAILY 08/12/16 08/12/16 History Metoprolol Tartrate [Lopressor -] 50 mg PO BID 08/12/16 08/12/16 History Omeprazole 40 mg PO DAILY 08/12/16 08/12/16 History Prednisone [Deltasone -] 60 mg PO DAILY 08/12/16 08/12/16 History Active Medications Generic Name Dose Route Start Last Admin Trade Name Freq PRN Reason Stop Dose Admin Acetaminophen 650 mg 08/15/16 15:50 08/15/16 16:07 Tylenol - PO 650 mg Q8H PRN Administration PAIN Furosemide 40 mg 08/17/16 10:00 08/18/16 09:03 Lasix Injection - IVPUSH 40 mg DAILY [facility] Administration Heparin Sodium (Porcine) 5,000 unit 08/14/16 14:55 08/17/16 09:05 Heparin - IVPUSH 5,000 unit PRN PRN Administration Heparin Sodium (Porcine) 1,000 unit 08/14/16 14:55 08/16/16 09:05 Heparin - IVPUSH 1,000 unit PRN PRN Administration Heparin Sodium/Dextrose 500 mls @ 20 mls/hr 08/14/16 15:00 08/18/16 15:50 Heparin Infusion - IVPB 22 mls/hr TITR [facility] Administration Protocol 1,000 UNITS/HR Metoprolol Tartrate 50 mg 08/12/16 22:45 08/18/16 21:06 Lopressor - PO 50 mg BID [facility] Administration Pantoprazole Sodium 40 mg 08/13/16 10:00 08/18/16 09:04 Protonix - PO 40 mg DAILY [facility] Administration Prednisone 10 mg 08/16/16 17:57 08/18/16 09:00 Deltasone - PO 10 mg DAILY [facility] Administration Physical Exam Vital Signs: afvss Constitutional: Yes: Mild Distress Eyes: Yes: WNL HENT: Yes: WNL Neck: Yes: WNL Cardiovascular: Yes: WNL Respiratory: Yes: WNL Gastrointestinal: Yes: Other (Ascitis.) 2+ edema labs reviewed a/p 76 y/o patient with autoimmune hepatitis/cirrhosis/ascites/? SBP, DVT Leukocytosis: chronic, neutrophilia Noted even in 2016 worsened due to ? SBp reactive to obesity? f/u Ct chest--r/o occult malignancy check flow/bcr;al/JAK2 to r/o myeloproliferative disorders DVT--baselie PT/PTT nl But given liver dysfunction wwould bridge heparin to coumadin. Would avoid NoAcs
[2016-08-17] MEDS: METRONIDAZOLE 500 MG PREMIXED 100 ML IVPB SCH ×2 (02:24→10:52)
[2016-08-17] MEDS: ALBUMIN HUMAN 25% 12.5 GM/50 ML VIAL IVPB SCH ×4 (02:25→16:32)
[2016-08-17 08:39] LABS: ALBUMIN 2.8 g/dl (3.4-5.0); CALCIUM 8.4 mg/dL (8.5-10.1); COCKROFT - GAULT 44.2595; CREATININE 1.9 mg/dL (0.55-1.02)
[2016-08-17 08:41] LABS: BILIRUBIN,TOTAL 0.8 mg/dL (0.2-1.0); TOT PROT 5.7 g/dl (6.4-8.2)
[2016-08-17] MEDS: HEPARIN INFUSION - 500 ML IVPB SCH ×2 (09:00→17:35)
[2016-08-17] MEDS: HEPARIN NA (PORCINE) 5,000 UNITS/ML 1ML VIAL IVPUSH PRN (09:05)
--- NOTE | 2016-08-17 09:11 | PN ---
Progress Note, Physician Chief Complaint: in bed NAD no new c/o feeling better but still with ascites and legs edema; son at bedside, I d/w pt and him a brief update in pt's condition and treatment - Current Medication List Current Medications: Active Medications Acetaminophen (Tylenol -) 650 mg PO Q8H PRN PRN Reason: PAIN Last Admin: 08/15/16 16:07 Dose: 650 mg Albumin Human (Albumin Human 25%) 12.5 gm IVPB Q6H [facility] Stop: 08/17/16 14:31 Furosemide (Lasix Injection -) 40 mg IVPUSH DAILY [facility] Heparin Sodium (Porcine) (Heparin -) 5,000 unit IVPUSH PRN PRN Heparin Sodium (Porcine) (Heparin -) 1,000 unit IVPUSH PRN PRN Last Admin: 08/16/16 09:05 Dose: 1,000 unit Ceftriaxone Sodium (Rocephin 1gm Ivpb (Pre-Docked)) 50 mls @ 100 mls/hr IVPB DAILY [facility] Last Admin: 08/16/16 12:21 Dose: 100 mls/hr Heparin Sodium/Dextrose (Heparin Infusion -) 500 mls @ 20 mls/hr IVPB TITR [facility] ; 1,000 UNITS/HR PRN Reason: Protocol Last Admin: 08/16/16 17:25 Dose: 20 mls/hr Metronidazole (Flagyl 500mg Premixed Ivpb -) 100 mls @ 100 mls/hr IVPB Q8H-IV [facility] Last Admin: 08/17/16 02:24 Dose: 100 mls/hr Metoprolol Tartrate (Lopressor -) 50 mg PO BID [facility] Last Admin: 08/16/16 21:41 Dose: 50 mg Pantoprazole Sodium (Protonix -) 40 mg PO DAILY [facility] Last Admin: 08/16/16 12:18 Dose: 40 mg Prednisone (Deltasone -) 10 mg PO DAILY [facility] Spironolactone (Aldactone -) 25 mg PO DAILY [facility] Last Admin: 08/16/16 12:18 Dose: 25 mg - Objective Vital Signs: Vital Signs Temperature 97.8 F 08/17/16 06:00 Pulse Rate 87 08/17/16 06:00 Respiratory Rate 20 08/17/16 06:00 Blood Pressure 119/61 08/17/16 06:00 O2 Sat by Pulse Oximetry (%) 95 08/16/16 21:10 Constitutional: Yes: No Distress, Calm Eyes: Yes: Conjunctiva Clear HENT: Yes: Atraumatic Neck: Yes: Supple Cardiovascular: Yes: Regular Rate and Rhythm Respiratory: Yes: CTA Bilaterally Gastrointestinal: Yes: Soft, Ascites, Distention. No: Tenderness Genitourinary: No: CVA Tenderness - Left, CVA Tenderness - Right, Hematuria Musculoskeletal: No: Joint Stiffness, Joint Swelling Extremities: No: Cold, Cool Edema: Yes (bilateral edema) Integumentary: Yes: Venous Stasis Changes. No: Rash Neurological: Yes: WNL, Alert, Oriented ...Motor Strength: WNL Psychiatric: Yes: WNL, Alert, Oriented. No: Agitated, Suicidal Ideation Labs: CBC, BMP 08/16/16 05:58 08/17/16 06:58 INR, PTT INR 1.04 (0.82-1.09) 08/14/16 14:55 - ....Imaging Other: Report Reviewed Assessment/Plan 76 year old woman with PMhx of Autoimmune hepatitis (on Prednisone/Azothiprine) , HTN, OA, obesity, GERD who presented with increased Abd and lower extremity swelling, liver cirrhosis on CT scan, Ascities s/p paracentesis, GI f/u; recurrent ascites worsening FARHEEN - renal f/u, creat better today check echo r/o CHF, cardio f/u diuretics per renal and cardio, pt still is fluid overloaded but renal fct worse ; close labs f/u high WBC currently on iv ceftriaxone, ID f/u; heme eval appreciated DVT on IV heparin, will need coumadin eventually, to d/w GI if needs another tap again. d/w pt and staff, d/w pt's son at bedside
[2016-08-17] MEDS: METOPROLOL TARTRATE 50 MG TABLET (FP) PO SCH ×2 (10:51→22:16)
[2016-08-17] MEDS: SPIRONOLACTONE 25 MG TABLET (FP) PO SCH (10:51)
[2016-08-17] MEDS: PANTOPRAZOLE 40 MG TABLET (FP) PO SCH (10:51)
[2016-08-17] MEDS: predniSONE 20 MG TABLET (UD) PO SCH (10:51)
[2016-08-17] MEDS: CEFTRIAXONE 50 ML IVPB SCH (10:52)
[2016-08-17] MEDS: FUROSEMIDE 40 MG/4 ML INJECTABLE VIAL IVPUSH SCH (10:52)
--- NOTE | 2016-08-17 12:26 | PN ---
Progress Note, Physician Chief Complaint: Events noted Less SOB, but concerned about reaccumulation of ascites Pedal edema persistent History of Present Illness: Patient was seen and examined. Awake and alert. Chart was reviewed Denies chest pain, less SOB and no palpitations Post paracentesis Post RLE DVT - Current Medication List Current Medications: Active Medications Acetaminophen (Tylenol -) 650 mg PO Q8H PRN PRN Reason: PAIN Last Admin: 08/15/16 16:07 Dose: 650 mg Albumin Human (Albumin Human 25%) 12.5 gm IVPB Q6H [facility] Stop: 08/17/16 14:31 Last Admin: 08/17/16 10:50 Dose: 12.5 gm Furosemide (Lasix Injection -) 40 mg IVPUSH DAILY [facility] Last Admin: 08/17/16 10:52 Dose: 40 mg Heparin Sodium (Porcine) (Heparin -) 5,000 unit IVPUSH PRN PRN Last Admin: 08/17/16 09:05 Dose: 5,000 unit Heparin Sodium (Porcine) (Heparin -) 1,000 unit IVPUSH PRN PRN Last Admin: 08/16/16 09:05 Dose: 1,000 unit Ceftriaxone Sodium (Rocephin 1gm Ivpb (Pre-Docked)) 50 mls @ 100 mls/hr IVPB DAILY [facility] Last Admin: 08/17/16 10:52 Dose: 100 mls/hr Heparin Sodium/Dextrose (Heparin Infusion -) 500 mls @ 20 mls/hr IVPB TITR [facility] ; 1,000 UNITS/HR PRN Reason: Protocol Last Admin: 08/17/16 09:00 Dose: 23 mls/hr Metronidazole (Flagyl 500mg Premixed Ivpb -) 100 mls @ 100 mls/hr IVPB Q8H-IV [facility] Last Admin: 08/17/16 10:52 Dose: 100 mls/hr Metoprolol Tartrate (Lopressor -) 50 mg PO BID [facility] Last Admin: 08/17/16 10:51 Dose: 50 mg Pantoprazole Sodium (Protonix -) 40 mg PO DAILY [facility] Last Admin: 08/17/16 10:51 Dose: 40 mg Prednisone (Deltasone -) 10 mg PO DAILY [facility] Last Admin: 08/17/16 10:51 Dose: 10 mg Spironolactone (Aldactone -) 25 mg PO DAILY [facility] Last Admin: 08/17/16 10:51 Dose: 25 mg - Objective Vital Signs: Vital Signs Temperature 97.8 F 08/17/16 06:00 Pulse Rate 87 08/17/16 06:00 Respiratory Rate 20 08/17/16 06:00 Blood Pressure 119/61 08/17/16 06:00 O2 Sat by Pulse Oximetry (%) 95 08/16/16 21:10 Neck: Yes: Supple Cardiovascular: Yes: Regular Rate and Rhythm, S1, S2 Respiratory: Yes: Diminished Gastrointestinal: Yes: Normal Bowel Sounds, Ascites. No: Tenderness Edema: Yes Edema: LLE: 1+, RLE: 1+ Labs: CBC, BMP 08/16/16 05:58 08/17/16 06:58 Assessment/Plan 1. Ascites, edema post paracentesis, etiology to be determined diastolic failure vs. serositis vs hepatic failure - pathology pending 2. HTN/HCVD 3. Autoimmune hepatitis 4. Acute kidney injury 5. Leukocytosis referable to chronic steroids vs SBP vs UTI 6. RLE DVT PLAN: 1. Follow up ascites fluid, empiric coverage for SBP with antibiotics f/u C&S. 2. Continue Lasix 40 IV mg qd and Aldactone 25 mg qd with monitoring renal function and electrolytes 3. Continue Lopressor 50 mg bid and eventual HANS-I/ARB once renal function stabilizes 4. IV heparin drip and eventual oral anticoagulation and Prednisone taper with GI protection 5. Decide whether she needs another paracentesis for therapeutic purpose Further plans are to follow Juan C Santoyo MD
[2016-08-17 14:16] LABS: PROTEIN C ACTIVITY 64 % (73-180); PROTEIN S ACTIVITY 75 % (63-140)
--- NOTE | 2016-08-17 15:04 | PN ---
Physical Exam: SUBJECTIVE: Patient seen and examined. She is feeling good. The pt reports mild abdominal discomfort with movement. OBJECTIVE: Vital Signs Period Temp Pulse Resp BP Sys/Vargas Pulse Ox Last 24 Hr 97.3 F-98.3 F 83-87 18-20 115-128/54-63 89-95 GENERAL: The patient is awake, alert, and fully oriented, in no acute distress. HEAD: Normal with no signs of trauma. EYES: extraocular movements intact, sclera anicteric, conjunctiva clear. No ptosis. ENT: Ears normal, nares patent, oropharynx clear without exudates, moist mucous membranes. NECK: Trachea midline, full range of motion, supple. LUNGS: Breath sounds equal, clear to auscultation bilaterally, no wheezes, no crackles, no accessory muscle use. HEART: Regular rate and rhythm, S1, S2 without murmur, rub or gallop. ABDOMEN: Soft, nontender, distended, normoactive bowel sounds, no guarding, no rebound. EXTREMITIES: 1+ edema. NEUROLOGICAL:No facial asymmetry. Normal speech, gait not observed. PSYCH: Normal mood, normal affect. SKIN: Warm, dry, normal turgor, no rashes. Laboratory Results - last 24 hr 08/14/16 08/14/16 08/14/16 10:20 14:20 14:55 PTT (Actin FS) Protein C Activity 64 L Protein S Activity 75 Func Antithrombin III 90 Sodium Potassium Chloride Carbon Dioxide Anion Gap BUN Creatinine Creat Clearance w eGFR Random Glucose Calcium Total Bilirubin AST ALT Alkaline Phosphatase Total Protein Albumin ADOLFO Screen Positive H ADOLFO Homogeneous Pattern 1:1280 H ADOLFO Nucleolar Pattern TNP ADOLFO Speckled Pattern 1:1280 H ADOLFO Centromere Pattern TNP Double Strand DNA Ab <1 Anti-Cardiolipin IgG Ab <9 Anti-Cardiolipin IgA Ab <9 Anti-Cardiolipin IgM Ab <9 08/16/16 08/17/16 08/17/16 15:00 06:58 06:58 PTT (Actin FS) 51.0 H 33.9 D Protein C Activity Protein S Activity Func Antithrombin III Sodium 135 L Potassium 5.0 Chloride 99 Carbon Dioxide 21 Anion Gap 15 BUN 88 H Creatinine 1.9 H Creat Clearance w eGFR 25.63 Random Glucose 210 H Calcium 8.4 L Total Bilirubin 0.8 D AST 49 H ALT 17 Alkaline Phosphatase 105 D Total Protein 5.7 L Albumin 2.8 L D ADOLFO Screen ADOLFO Homogeneous Pattern ADOLFO Nucleolar Pattern ADOLFO Speckled Pattern ADOLFO Centromere Pattern Double Strand DNA Ab Anti-Cardiolipin IgG Ab Anti-Cardiolipin IgA Ab Anti-Cardiolipin IgM Ab Active Medications Generic Name Dose Route Start Last Admin Trade Name Freq PRN Reason Stop Dose Admin Acetaminophen 650 mg 08/15/16 15:50 08/15/16 16:07 Tylenol - PO 650 mg Q8H PRN Administration PAIN Furosemide 40 mg 08/17/16 10:00 08/17/16 10:52 Lasix Injection - IVPUSH 40 mg DAILY [facility] Administration Heparin Sodium (Porcine) 5,000 unit 08/14/16 14:55 08/17/16 09:05 Heparin - IVPUSH 5,000 unit PRN PRN Administration Heparin Sodium (Porcine) 1,000 unit 08/14/16 14:55 08/16/16 09:05 Heparin - IVPUSH 1,000 unit PRN PRN Administration Ceftriaxone Sodium 50 mls @ 100 mls/hr 08/13/16 16:15 08/17/16 10:52 Rocephin 1gm Ivpb (Pre-Docked) IVPB 100 mls/hr DAILY [facility] Administration Heparin Sodium/Dextrose 500 mls @ 20 mls/hr 08/14/16 15:00 08/17/16 09:00 Heparin Infusion - IVPB 23 mls/hr TITR [facility] Administration Protocol 1,000 UNITS/HR Metronidazole 100 mls @ 100 mls/hr 08/15/16 16:00 08/17/16 10:52 Flagyl 500mg Premixed Ivpb - IVPB 100 mls/hr Q8H-IV [facility] Administration Metoprolol Tartrate 50 mg 08/12/16 22:45 08/17/16 10:51 Lopressor - PO 50 mg BID [facility] Administration Pantoprazole Sodium 40 mg 08/13/16 10:00 08/17/16 10:51 Protonix - PO 40 mg DAILY [facility] Administration Prednisone 10 mg 08/16/16 17:57 08/17/16 10:51 Deltasone - PO 10 mg DAILY [facility] Administration Spironolactone 25 mg 08/13/16 18:00 08/17/16 10:51 Aldactone - PO 25 mg DAILY [facility] Administration ASSESSMENT/PLAN: 76 year old female with a PMH of HTN, GERGD, autoimmune hepatitis diagnosed in May 2016 who presents to the hospital complaining of SOB x 3 days. She was found to have ascites. 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 - New Patient This patient is new to me today: No - Critical Care Critical Care patient: No - Discharge Referral Referred to [facility] Med P.C.: No
[2016-08-17 15:17] LABS: MCH 29.2 pg (25.7-33.7); MCHC 32.3 g/dl (32.0-36.0); MEAN CELL VOLUME 90.4 fl (80-96); MEAN PLT VOLUME 9.1 fl (7.5-11.1); PLATELET COUNT 326 K/MM3 (134-434); RDW 16.1 % (11.6-15.6); WHITE BLOOD COUNT 22.2 K/mm3 (4.0-10.0)
--- NOTE | 2016-08-17 15:55 | PN ---
Teaching Attending Note Name of Resident: Ledy Weir ATTENDING PHYSICIAN STATEMENT I saw and evaluated the patient. I reviewed the resident's note and discussed the case with the resident. I agree with the resident's findings and plan as documented. SUBJECTIVE: feels a bit better OBJECTIVE: Vital Signs Period Temp Pulse Resp BP Sys/Vargas Pulse Ox Last 24 Hr 97.3 F-98.3 F 83-87 18-20 115-128/54-63 89-95 cor-rrr llungs clear abd +ascites ext +edema CBC, BMP 08/17/16 14:30 08/17/16 06:[address] biibasilar effusions, no infiltrates cytology pending ASSESSMENT AND PLAN: ascites of unclear etiology- ?infection, ?malignancy, ?autoimmune- crp is 17! if cytology is negative , would consider repeat paracentesis would send repeat cultures and afb pcr on the ascitic fluid as well as repeat cytology would d/c antibiotics- d/w GI
--- NOTE | 2016-08-17 16:07 | PN ---
Progress Note (short form) - Note Progress Note: Renal Follow up for FARHEEN Pt seen and examined at the bedside sitting in chair no acute complaints has orthopnea and mild SANTA no chest pain or abd pain s/p paracentesis on Tuesday Vital Signs Temperature 97.4 F L 08/17/16 15:42 Pulse Rate 85 08/17/16 15:42 Respiratory Rate 20 08/17/16 15:42 Blood Pressure 127/57 08/17/16 15:42 O2 Sat by Pulse Oximetry (%) 95 08/16/16 21:10 Intake & Output 08/14/16 08/15/16 08/16/16 08/17/16 23:59 23:59 23:59 23:59 Intake Total 750 1472 1852 920 Balance 750 1472 1852 920 Weight 249 lb 1 oz 249 lb 1 oz 249 lb 5 oz Gen: NAD CVS: RRR, No M/R Lungs: CTA Abd: + Ascities Ext: 2+ edema in b/l LE CBC, BMP 08/17/16 14:30 08/17/16 06:58 Current Medications Acetaminophen (Tylenol -) 650 mg PO Q8H PRN PRN Reason: PAIN Last Admin: 08/15/16 16:07 Dose: 650 mg Furosemide (Lasix Injection -) 40 mg IVPUSH DAILY [facility] Last Admin: 08/17/16 10:52 Dose: 40 mg Heparin Sodium (Porcine) (Heparin -) 5,000 unit IVPUSH PRN PRN Last Admin: 08/17/16 09:05 Dose: 5,000 unit Heparin Sodium (Porcine) (Heparin -) 1,000 unit IVPUSH PRN PRN Last Admin: 08/16/16 09:05 Dose: 1,000 unit Ceftriaxone Sodium (Rocephin 1gm Ivpb (Pre-Docked)) 50 mls @ 100 mls/hr IVPB DAILY [facility] Last Admin: 08/17/16 10:52 Dose: 100 mls/hr Heparin Sodium/Dextrose (Heparin Infusion -) 500 mls @ 20 mls/hr IVPB TITR [facility] ; 1,000 UNITS/HR PRN Reason: Protocol Last Admin: 08/17/16 09:00 Dose: 23 mls/hr Metronidazole (Flagyl 500mg Premixed Ivpb -) 100 mls @ 100 mls/hr IVPB Q8H-IV [facility] Last Admin: 08/17/16 10:52 Dose: 100 mls/hr Metoprolol Tartrate (Lopressor -) 50 mg PO BID [facility] Last Admin: 08/17/16 10:51 Dose: 50 mg Pantoprazole Sodium (Protonix -) 40 mg PO DAILY [facility] Last Admin: 08/17/16 10:51 Dose: 40 mg Prednisone (Deltasone -) 10 mg PO DAILY [facility] Last Admin: 08/17/16 10:51 Dose: 10 mg Spironolactone (Aldactone -) 25 mg PO DAILY [facility] Last Admin: 08/17/16 10:51 Dose: 25 mg A/P 76 year old woman with PMhx of Autoimmune hepatitis (on Prednisone/Azothiprine) , GERD who presented with increased Abd and lower extremity swelling and found to have Ascities with FARHEEN with BUN/Cr of 77/1.8. 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
--- NOTE | 2016-08-17 20:11 | PN ---
GI Progress Note Subjective: patient not loosing weight , renal function improving - Objective Vital Signs: Vital Signs Temperature 98.6 F 08/17/16 18:10 Pulse Rate 83 08/17/16 18:10 Respiratory Rate 20 08/17/16 18:10 Blood Pressure 134/69 08/17/16 18:10 O2 Sat by Pulse Oximetry (%) 95 08/17/16 09:00 Constitutional: Well Nourished Eyes: Yes: Conjunctiva Clear HENT: Yes: Atraumatic Neck: Yes: Supple Cardiovascular: Yes: Regular Rate and Rhythm Respiratory: Yes: CTA Bilaterally Gastrointestinal Inspection: Yes: Ascites ...Palpate: Yes: Soft. No: Firm/Rigid, Guarding, Hepatomegaly, Mass, Splenomegaly, Tenderness ...Percussion: Yes: Tympanitic Labs: CBC, BMP 08/17/16 14:30 08/17/16 06:58 INR, PTT INR 1.04 (0.82-1.09) 08/14/16 14:55 Problem List - Problems (1) Autoimmune hepatitis Assessment/Plan: --stable Code(s): K75.4 - AUTOIMMUNE HEPATITIS (2) Ascites Assessment/Plan: R> continue diuretics will need to repeat diagnostic paracentesis Code(s): R18.8 - OTHER ASCITES Qualifiers: Qualified Code(s): R18.8 - Other ascites
[2016-08-18 07:36] LABS: BASOPHIL 0.2 % (0-2.0); EOSINOPHIL 0.1 % (0-4.5); MCHC 32.1 g/dl (32.0-36.0); MEAN CELL VOLUME 90.4 fl (80-96); MEAN PLT VOLUME 9.3 fl (7.5-11.1); NEUTROPHILS 85.9 % (42.8-82.8); PLATELET COUNT 315 K/MM3 (134-434); RDW 16.3 % (11.6-15.6); WHITE BLOOD COUNT 21.5 K/mm3 (4.0-10.0)
[2016-08-18 07:56] LABS: ALBUMIN 2.3 g/dl (3.4-5.0); BILIRUBIN,TOTAL 0.6 mg/dL (0.2-1.0); CALCIUM 8.1 mg/dL (8.5-10.1); COCKROFT - GAULT 52.496; CREATININE 1.6 mg/dL (0.55-1.02); TOT PROT 4.9 g/dl (6.4-8.2)
--- NOTE | 2016-08-18 08:47 | PN ---
Progress Note, Physician Chief Complaint: in bed nad feels SOB b/o ascitic fluid reaccumulation; d/w pt to retap the fluid - Current Medication List Current Medications: Active Medications Acetaminophen (Tylenol -) 650 mg PO Q8H PRN PRN Reason: PAIN Last Admin: 08/15/16 16:07 Dose: 650 mg Furosemide (Lasix Injection -) [address] [facility] Last Admin: 08/17/16 10:52 Dose: 40 mg Heparin Sodium (Porcine) (Heparin -) 5,000 unit IVPUSH PRN PRN Last Admin: 08/17/16 09:05 Dose: 5,000 unit Heparin Sodium (Porcine) (Heparin -) 1,000 unit IVPUSH PRN PRN Last Admin: 08/16/16 09:05 Dose: 1,000 unit Heparin Sodium/Dextrose (Heparin Infusion -) 500 mls @ 20 mls/hr IVPB TITR [facility] ; 1,000 UNITS/HR PRN Reason: Protocol Last Admin: 08/17/16 17:35 Dose: 22 mls/hr Metoprolol Tartrate (Lopressor -) [address] [facility] Last Admin: 08/17/16 22:16 Dose: 50 mg Pantoprazole Sodium (Protonix -) [address] [facility] Last Admin: 08/17/16 10:51 Dose: 40 mg Prednisone (Deltasone -) [address] [facility] Last Admin: 08/17/16 10:51 Dose: 10 mg - Objective Vital Signs: Vital Signs Temperature 98.7 F 08/18/16 06:00 Pulse Rate 87 08/18/16 06:00 Respiratory Rate 20 08/18/16 06:00 Blood Pressure 121/47 08/18/16 06:00 O2 Sat by Pulse Oximetry (%) 95 08/17/16 21:00 Constitutional: Yes: No Distress, Calm Eyes: Yes: Conjunctiva Clear HENT: Yes: Atraumatic Neck: Yes: Supple Cardiovascular: Yes: Regular Rate and Rhythm Respiratory: Yes: CTA Bilaterally Gastrointestinal: Yes: Soft, Ascites, Distention. No: Tenderness Genitourinary: No: CVA Tenderness - Left, CVA Tenderness - Right Musculoskeletal: No: Joint Stiffness, Joint Swelling Extremities: No: Cold, Cool Edema: Yes Integumentary: No: Rash, Venous Stasis Changes Neurological: Yes: WNL, Alert, Oriented ...Motor Strength: WNL Psychiatric: Yes: WNL, Alert, Oriented. No: Agitated, Suicidal Ideation Labs: CBC, BMP 08/18/16 06:15 08/18/16 06:15 INR, PTT INR 1.04 (0.82-1.09) 08/14/16 14:55 - ....Imaging Other: Report Reviewed Assessment/Plan 76 year old woman with PMhx of Autoimmune hepatitis (on Prednisone/Azothiprine) , HTN, OA, obesity, GERD who presented with increased Abd and lower extremity swelling, liver cirrhosis on CT scan, Ascities s/p paracentesis, GI f/u; recurrent ascites might need to be retaped, called IR FARHEEN/ CRF - renal f/u echo NL EF, cardio f/u diuretics per renal and cardio, pt still is fluid overloaded but renal fct worse ; close labs f/u high WBC currently on iv ceftriaxone, ID f/u; heme eval appreciated DVT on IV heparin, will need coumadin eventually d/w pt and staff, d/w pt's son at bedside
[2016-08-18] MEDS: predniSONE 20 MG TABLET (UD) PO SCH (09:00)
[2016-08-18] MEDS: FUROSEMIDE 40 MG/4 ML INJECTABLE VIAL IVPUSH SCH (09:03)
[2016-08-18] MEDS: METOPROLOL TARTRATE 50 MG TABLET (FP) PO SCH ×2 (09:04→21:06)
[2016-08-18] MEDS: PANTOPRAZOLE 40 MG TABLET (FP) PO SCH (09:04)
[2016-08-18 11:11] LABS: FERRITIN 555.645 ng/ml (6.9-282.5)
--- NOTE | 2016-08-18 11:44 | PN ---
Physical Exam: SUBJECTIVE: Patient seen and examined. She is feeling good today. No overnight events, no fever reported. OBJECTIVE: Vital Signs Period Temp Pulse Resp BP Sys/Vargas Pulse Ox Last 24 Hr 97.4 F-98.7 F 83-91 20-20 116-136/47-74 95 GENERAL: The patient is awake, alert, and fully oriented, in no acute distress. HEAD: Normal with no signs of trauma. EYES: PERRL, extraocular movements intact, sclera anicteric, conjunctiva clear. No ptosis. ENT: oropharynx clear without exudates, moist mucous membranes. NECK: Trachea midline, full range of motion, supple. LUNGS: Breath sounds equal, clear to auscultation bilaterally, no wheezes, no crackles, no accessory muscle use. HEART: Regular rate and rhythm, S1, S2 without murmur, rub or gallop. ABDOMEN: Soft, nontender, distended, normoactive bowel sounds, no guarding, no rebound, ascites present. EXTREMITIES: 1+ LE edema. NEUROLOGICAL: No facial asymmetry. Normal speech, gait not observed. PSYCH: Normal mood, normal affect. SKIN: Warm, dry, normal turgor, no rashes or lesions noted. Laboratory Results - last 24 hr 08/14/16 08/14/16 08/17/16 14:20 14:55 14:30 WBC 22.2 H RBC 4.41 Hgb 12.9 Hct 39.8 MCV 90.4 MCHC 32.3 RDW 16.1 H Plt Count 326 MPV 9.1 Neutrophils % 93.0 H Lymphocytes % 2.0 L D Monocytes % 5.0 Eosinophils % 0.0 D Basophils % 0.0 Band Neutrophils 0.0 PTT (Actin FS) Protein C Activity 64 L Protein S Activity 75 Func Antithrombin III 90 Sodium Potassium Chloride Carbon Dioxide Anion Gap BUN Creatinine Creat Clearance w eGFR Random Glucose Hemoglobin A1c % Calcium Ferritin Total Bilirubin AST ALT Alkaline Phosphatase Total Protein Albumin Vitamin B12 08/17/16 08/18/16 08/18/16 16:00 06:15 06:15 WBC RBC Hgb Hct MCV MCHC RDW Plt Count MPV Neutrophils % Lymphocytes % Monocytes % Eosinophils % Basophils % Band Neutrophils PTT (Actin FS) 79.1 H D 50.2 H D Protein C Activity Protein S Activity Func Antithrombin III Sodium 138 Potassium 5.2 H Chloride 100 Carbon Dioxide 24 Anion Gap 14 BUN 83 H Creatinine 1.6 H Creat Clearance w eGFR 31.26 Random Glucose 224 H Hemoglobin A1c % Calcium 8.1 L Ferritin 555.645 H Total Bilirubin 0.6 D AST 45 H ALT 19 Alkaline Phosphatase 132 H D Total Protein 4.9 L Albumin 2.3 L Vitamin B12 1004 H 08/18/16 08/18/16 08/18/16 06:15 06:15 06:15 WBC 21.5 H RBC 4.30 Hgb 12.5 Hct 38.9 MCV 90.4 MCHC 32.1 RDW 16.3 H Plt Count 315 MPV 9.3 Neutrophils % 85.9 H Lymphocytes % 6.7 L D Monocytes % 7.1 Eosinophils % 0.1 D Basophils % 0.2 D Band Neutrophils PTT (Actin FS) Protein C Activity Protein S Activity Func Antithrombin III Sodium Potassium Chloride Carbon Dioxide Anion Gap BUN Creatinine Creat Clearance w eGFR Random Glucose Hemoglobin A1c % 9.0 H D Calcium Ferritin Cancelled Total Bilirubin AST ALT Alkaline Phosphatase Total Protein Albumin Vitamin B12 Cancelled Active Medications Generic Name Dose Route Start Last Admin Trade Name Freq PRN Reason Stop Dose Admin Acetaminophen 650 mg 08/15/16 15:50 08/15/16 16:07 Tylenol - PO 650 mg Q8H PRN Administration PAIN Furosemide 40 mg 08/17/16 10:00 08/18/16 09:03 Lasix Injection - IVPUSH 40 mg DAILY [facility] Administration Heparin Sodium (Porcine) 5,000 unit 08/14/16 14:55 08/17/16 09:05 Heparin - IVPUSH 5,000 unit PRN PRN Administration Heparin Sodium (Porcine) 1,000 unit 08/14/16 14:55 08/16/16 09:05 Heparin - IVPUSH 1,000 unit PRN PRN Administration Heparin Sodium/Dextrose 500 mls @ 20 mls/hr 08/14/16 15:00 08/18/16 09:05 Heparin Infusion - IVPB 1,100 units/hr TITR [facility] Titration Protocol 1,000 UNITS/HR Metoprolol Tartrate 50 mg 08/12/16 22:45 08/18/16 09:04 Lopressor - PO 50 mg BID [facility] Administration Pantoprazole Sodium 40 mg 08/13/16 10:00 08/18/16 09:04 Protonix - PO 40 mg DAILY [facility] Administration Prednisone 10 mg 08/16/16 17:57 08/18/16 09:00 Deltasone - PO 10 mg DAILY [facility] Administration ASSESSMENT/PLAN: 76 year old female with a PMH of HTN, GERGD, autoimmune hepatitis diagnosed in May 2016 who presents to the hospital complaining of SOB x 3 days. She was found to have ascites. 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 - New Patient This patient is new to me today: No - Critical Care Critical Care patient: No
--- NOTE | 2016-08-18 12:16 | PN ---
Progress Note (short form) - Note Progress Note: Renal Follow up for FARHEEN Pt seen and examined at the bedside felt sob this am but was able to lay flat to sleep last night denies any pain no fever or chills Vital Signs Temperature 97.9 F 08/18/16 09:00 Pulse Rate 90 08/18/16 09:00 Respiratory Rate 20 08/18/16 09:00 Blood Pressure 116/74 08/18/16 09:00 O2 Sat by Pulse Oximetry (%) 95 08/17/16 21:00 Intake & Output 08/15/16 08/16/16 08/17/16 08/18/16 23:59 23:59 23:59 23:59 Intake Total 1472 1852 2030 220 Balance 1472 1852 2030 220 Weight 249 lb 1 oz 249 lb 1 oz 249 lb 5 oz 249 lb Gen: NAD CVS: RRR, No M/R Lungs: CTA Abd: + Ascities Ext: 2+ edema in b/l LE CBC, BMP 08/18/16 06:15 08/18/16 06:15 Laboratory Tests 08/12/16 08/13/16 08/13/16 20:23 07:00 07:00 MCV 89.3 Hemoglobin A1c % Lactic Acid 2.877 H* Calcium 8.2 L Iron Ferritin Albumin 2.4 L Tumor Marker AFP Carcinoembryonic Ag CA 19-9 Antigen Urine Protein Urine Blood Ur Leukocyte Esterase Urine RBC Urine WBC ADOLFO Screen ADOLFO Homogeneous Pattern ADOLFO Speckled Pattern ADOLFO Centromere Pattern Double Strand DNA Ab 08/13/16 08/14/16 08/17/16 09:35 10:20 06:58 MCV Hemoglobin A1c % Lactic Acid Calcium 8.4 L Iron Ferritin Albumin 2.8 L D Tumor Marker AFP Carcinoembryonic Ag CA 19-9 Antigen Urine Protein 1+ H Urine Blood 2+ H Ur Leukocyte Esterase 3+ H D Urine RBC 10 Urine WBC 115 ADOLFO Screen Positive H ADOLFO Homogeneous Pattern 1:1280 H ADOLFO Speckled Pattern 1:1280 H ADOLFO Centromere Pattern TNP Double Strand DNA Ab <1 08/18/16 08/18/16 08/18/16 06:15 06:15 06:15 MCV Hemoglobin A1c % 9.0 H D Lactic Acid Calcium 8.1 L Iron Pending Ferritin 555.645 H Albumin 2.3 L Tumor Marker AFP Pending Carcinoembryonic Ag CA 19-9 Antigen Urine Protein Urine Blood Ur Leukocyte Esterase Urine RBC Urine WBC ADOLFO Screen ADOLFO Homogeneous Pattern ADOLFO Speckled Pattern ADOLFO Centromere Pattern Double Strand DNA Ab 08/18/16 06:15 MCV Hemoglobin A1c % Lactic Acid Calcium Iron Ferritin Albumin Tumor Marker AFP Carcinoembryonic Ag Pending CA 19-9 Antigen Pending Urine Protein Urine Blood Ur Leukocyte Esterase Urine RBC Urine WBC ADOLFO Screen ADOLFO Homogeneous Pattern ADOLFO Speckled Pattern ADOLFO Centromere Pattern Double Strand DNA Ab Current Medications Acetaminophen (Tylenol -) 650 mg PO Q8H PRN PRN Reason: PAIN Last Admin: 08/15/16 16:07 Dose: 650 mg Furosemide (Lasix Injection -) 40 mg IVPUSH DAILY ASTR[facility] Last Admin: 08/18/16 09:03 Dose: 40 mg Heparin Sodium (Porcine) (Heparin -) 5,000 unit IVPUSH PRN PRN Last Admin: 08/17/16 09:05 Dose: 5,000 unit Heparin Sodium (Porcine) (Heparin -) 1,000 unit IVPUSH PRN PRN Last Admin: 08/16/16 09:05 Dose: 1,000 unit Heparin Sodium/Dextrose (Heparin Infusion -) 500 mls @ 20 mls/hr IVPB TITR ASTRID ; 1,000 UNITS/HR PRN Reason: Protocol Last Titration: 08/18/16 09:05 Dose: 1,100 units/hr Metoprolol Tartrate (Lopressor -) 50 mg PO BID [facility] Last Admin: 08/18/16 09:04 Dose: 50 mg Pantoprazole Sodium (Protonix -) 40 mg PO DAILY [facility] Last Admin: 08/18/16 09:04 Dose: 40 mg Prednisone (Deltasone -) 10 mg PO DAILY [facility] Last Admin: 08/18/16 09:00 Dose: 10 mg A/P 76 year old woman with PMhx of Autoimmune hepatitis (on Prednisone/Azothiprine) , GERD who presented with increased Abd and lower extremity swelling and found to have Ascities with FARHEEN with BUN/Cr of 77/1.8. 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
--- NOTE | 2016-08-18 13:47 | PATH ---
Cytology Non-Gynecological Report Patient Name: VALDEZ KNUTSON [facility]. Rec. #: [id number] /Age/Gender: 1940 (Age: 76) / F Account: [id number] Location: [address] [place] [address] Taken: 08/16/2016 Received: 08/16/2016 Reported: 08/18/2016 Physicians: Debo Jennings M.D. Specimen(s) Received PERITONEAL FLUID Clinical History None given Final Diagnosis ABDOMINAL FLUID, LEFT LOWER QUADRANT, PARACENTESIS: SATISFACTORY FOR EVALUATION. POSITIVE FOR MALIGNANCY. 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 Comment: The cytologic preparations show numerous clusters of malignant cells with large nuclei with prominent nucleoli. Immunohistochemical stains performed at [place], [place] ([id number]) and interpreted at [facility] show the following results: The neoplastic cells are positive with PAX8, P16, P53, WT-1, KAUSHIK, and MOC-31 (weak). TTF-1 and calretinin are negative. CK5/6 shows rare positive cells. This case was discussed with Dr. Esther Ariza on 08/18/2016 Electronically Signed Braxton Ornelas M.D. Gross Description A. Approximately 15 cc of yellow fluid received fixed in 50% alcohol. One cytofunnel and one cellblock prepared. B. Approximately 6000 cc of yellow fluid received fresh. One cytofunnel and one cellblock prepared.
[2016-08-18 14:17] LABS: LAC INTERPRETATION Comment: (.)
--- NOTE | 2016-08-18 14:24 | PN ---
Teaching Attending Note Name of Resident: Ledy Weir ATTENDING PHYSICIAN STATEMENT I saw and evaluated the patient. I reviewed the resident's note and discussed the case with the resident. I agree with the resident's findings and plan as documented. SUBJECTIVE: increasing abdominal girth OBJECTIVE: Vital Signs Period Temp Pulse Resp BP Sys/Vargas Pulse Ox Last 24 Hr 97.4 F-98.7 F 83-91 20-20 116-136/47-74 95-97 cor-rrr llungs clear abd firm, +ascities ext ++ edema CBC, BMP 08/18/16 06:15 08/18/16 06:15 ASSESSMENT AND PLAN: malignant ascites- cytology results noted- patient not aware of diagnosis yet- d /w Dr Ariza who will speak with patient please call back if needed
--- NOTE | 2016-08-18 14:57 | PATH ---
Surgical Pathology Report Patient Name: VALDEZ KNUTSON [facility]. Rec. #: [id number] /Age/Gender: 1940 (Age: 76) / F Account: [id number] Location: [address] [place] [address] Taken: 08/17/2016 Received: 08/17/2016 Reported: 08/18/2016 Physicians: Bryanna Ho M.D. Specimen(s) Received PERIPHERAL BLOOD Clinical History None Provided Final Diagnosis PERIPHERAL BLOOD: FLOW CYTOMETRY performed and interpreted at [facility], [place], [place] ([id number]) shows the following: INTERPRETATION: In the sample analyzed, there is no evidence of B or T-cell proliferative disorders or increased blasts. Comment: C these are pending, and a report will follow. Electronically Signed Braxton Ornelas M.D. Addendum Reported: 08/19/2016 Addendum Diagnosis PERIPHERAL BLOOD: Molecular Pathology Reports received from [facility] in [place], [place] ([id number] and [id number]) show the following: BCR/ABL GENE REARRANGEMENT (IS) ANALYSIS RESULTS: NEGATIVE BCR/ABL Major Breakpoints (b2a2 and b3a2): NOT DETECTED BCR/ABL Minor Breakpoint (e1a2): NOT DETECTED INTERPRETATION: No BCR-ABL translocation was detected in this sample. JAK2 [id number] MUTATION ANALYSIS BY PCR RESULTS: Only the wild-type JAK2 sequence was detected. INTERPRETATION: Negative for JAK2 (V617F) mutation Braxton Ornelas M.D. Gross Description Received are 2 green top tubes and 2 purple top tubes of blood which are sent to [facility]. /08/17/2016 saudi/08/17/2016
[2016-08-18] MEDS: HEPARIN INFUSION - 500 ML IVPB SCH (15:50)
--- NOTE | 2016-08-18 16:48 | PN ---
Progress Note, Physician History of Present Illness: Ascites reaccumulating with consequent dyspnea. Unfortunately peritoneal fluid cytology is significant for peritoneal carcinomatosis. - Current Medication List Current Medications: Active Medications Acetaminophen (Tylenol -) 650 mg PO Q8H PRN PRN Reason: PAIN Last Admin: 08/15/16 16:07 Dose: 650 mg Furosemide (Lasix Injection -) 40 mg IVPUSH DAILY [facility] Last Admin: 08/18/16 09:03 Dose: 40 mg Heparin Sodium (Porcine) (Heparin -) 5,000 unit IVPUSH PRN PRN Last Admin: 08/17/16 09:05 Dose: 5,000 unit Heparin Sodium (Porcine) (Heparin -) 1,000 unit IVPUSH PRN PRN Last Admin: 08/16/16 09:05 Dose: 1,000 unit Heparin Sodium/Dextrose (Heparin Infusion -) 500 mls @ 20 mls/hr IVPB TITR ASTRID ; 1,000 UNITS/HR PRN Reason: Protocol Last Titration: 08/18/16 09:05 Dose: 1,100 units/hr Metoprolol Tartrate (Lopressor -) 50 mg PO BID [facility] Last Admin: 08/18/16 09:04 Dose: 50 mg Pantoprazole Sodium (Protonix -) 40 mg PO DAILY [facility] Last Admin: 08/18/16 09:04 Dose: 40 mg Prednisone (Deltasone -) 10 mg PO DAILY [facility] Last Admin: 08/18/16 09:00 Dose: 10 mg - Objective Vital Signs: Vital Signs Temperature 98.3 F 08/18/16 15:18 Pulse Rate 81 08/18/16 15:18 Respiratory Rate 18 08/18/16 15:18 Blood Pressure 144/71 08/18/16 15:18 O2 Sat by Pulse Oximetry (%) 97 08/18/16 09:00 Constitutional: Yes: No Distress, Calm Neck: Yes: Supple Cardiovascular: Yes: Regular Rate and Rhythm Respiratory: Yes: Regular, Diminished Gastrointestinal: Yes: Normal Bowel Sounds, Distention Edema: Yes Edema: LLE: 2+, RLE: 2+ Labs: CBC, BMP 08/18/16 06:15 08/18/16 06:15 INR, PTT INR 1.04 (0.82-1.09) 08/14/16 14:55 - ....Imaging Ultrasound: Report Reviewed (Mod ascites) Problem List - Problems (1) Ascites Code(s): R18.8 - OTHER ASCITES Qualifiers: Qualified Code(s): R18.8 - Other ascites (2) Acute diastolic heart failure Code(s): I50.31 - ACUTE DIASTOLIC (CONGESTIVE) HEART FAILURE (3) Hypertensive cardiomyopathy Code(s): I11.9 - HYPERTENSIVE HEART DISEASE WITHOUT HEART FAILURE I42.9 - CARDIOMYOPATHY, UNSPECIFIED Qualifiers: Qualified Code(s): I11.0 - Hypertensive heart disease with heart failure (4) Autoimmune hepatitis Code(s): K75.4 - AUTOIMMUNE HEPATITIS (5) Peripheral edema Code(s): R60.9 - EDEMA, UNSPECIFIED (6) Acute kidney injury Code(s): N17.9 - ACUTE KIDNEY FAILURE, UNSPECIFIED (7) Leukocytosis Code(s): D72.829 - ELEVATED WHITE BLOOD CELL COUNT, UNSPECIFIED Qualifiers: Qualified Code(s): D72.829 - Elevated white blood cell count, unspecified (8) Deep venous embolism and thrombosis of right lower extremity Code(s): I82.401 - ACUTE EMBOLISM AND THOMBOS UNSP DEEP VEINS OF R LOW EXTREM Assessment/Plan 1. 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 HTN/HCVD 3. Autoimmune hepatitis 4. Acute kidney injury resolving 5. Leukocytosis referable to chronic steroids vs SBP 6. RLE DVT PLAN: 1. 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 Continue Lasix 40 IV mg qd and Aldactone 25 mg qd with monitoring renal function and electrolytes 3. Continue Lopressor 50 mg bid and eventual HANS-I/ARB once renal function stabilizes 4. IV heparin drip and eventual oral anticoagulation and Prednisone taper with GI protection
--- NOTE | 2016-08-18 17:53 | PN ---
Progress Note (short form) - Note Progress Note: reviewed cytology results, may repeat paracentesis with IV albumin and insert a catheter for further drainage await oncology input Problem List - Problems (1) Autoimmune hepatitis Code(s): K75.4 - AUTOIMMUNE HEPATITIS (2) Ascites Code(s): R18.8 - OTHER ASCITES Qualifiers: Qualified Code(s): R18.8 - Other ascites
--- NOTE | 2016-08-18 22:41 | PN ---
Progress Note (short form) - Note Progress Note: patient seen and exmined feels ok Last Vital Signs Temp Pulse Resp BP Pulse Ox 98.1 F 100 H 20 146/70 97 08/18/16 20:39 08/18/16 20:39 08/18/16 20:39 08/18/16 20:39 08/18/16 09:00 HEENT: MALATHI, EOM Intact Oropharynx: No thrush, No mucositis Neck: Supple Nodes: Without adenopathy Cor: RSR, No murmurs, No gallops Lungs: Clear to P&A Abd: Soft, Normal bowel sounds, ascites ++ Ext:2+ edema b/l Abnormal Lab Results 08/14/16 08/18/16 08/18/16 14:55 06:15 06:15 WBC RDW Neutrophils % Lymphocytes % PTT (Actin FS) 50.2 H D dRVVT Confirm Interp 45.8 H Potassium 5.2 H BUN 83 H Creatinine 1.6 H Random Glucose 224 H Hemoglobin A1c % Calcium 8.1 L Ferritin 555.645 H AST 45 H Alkaline Phosphatase 132 H D Total Protein 4.9 L Albumin 2.3 L Vitamin B12 1004 H 08/18/16 08/18/16 06:15 06:15 WBC 21.5 H RDW 16.3 H Neutrophils % 85.9 H Lymphocytes % 6.7 L D PTT (Actin FS) dRVVT Confirm Interp Potassium BUN Creatinine Random Glucose Hemoglobin A1c % 9.0 H D Calcium Ferritin AST Alkaline Phosphatase Total Protein Albumin Vitamin B12 Active Medications Generic Name Dose Route Start Last Admin Trade Name Freq PRN Reason Stop Dose Admin Acetaminophen 650 mg 08/15/16 15:50 08/15/16 16:07 Tylenol - PO 650 mg Q8H PRN Administration PAIN Furosemide 40 mg 08/17/16 10:00 08/18/16 09:03 Lasix Injection - IVPUSH 40 mg DAILY [facility] Administration Heparin Sodium (Porcine) 5,000 unit 08/14/16 14:55 08/17/16 09:05 Heparin - IVPUSH 5,000 unit PRN PRN Administration Heparin Sodium (Porcine) 1,000 unit 08/14/16 14:55 08/16/16 09:05 Heparin - IVPUSH 1,000 unit PRN PRN Administration Heparin Sodium/Dextrose 500 mls @ 20 mls/hr 08/14/16 15:00 08/18/16 15:50 Heparin Infusion - IVPB 22 mls/hr TITR ASTRID Administration Protocol 1,000 UNITS/HR Metoprolol Tartrate 50 mg 08/12/16 22:45 08/18/16 21:06 Lopressor - PO 50 mg BID [facility] Administration Pantoprazole Sodium 40 mg 08/13/16 10:00 08/18/16 09:04 Protonix - PO 40 mg DAILY [facility] Administration Prednisone 10 mg 08/16/16 17:57 08/18/16 09:00 Deltasone - PO 10 mg DAILY ASTR[facility] Administration a/p 76 y/o patient with autoimmune hepatitis, cirrhosis, dvt rle, presenting with ascites ascitic fluid + for high grade serous carcinoma ca125 pending will get derrick car operator-onc consult discussed with patient and her son --the diagnosis, advanced disease, high grade pathology, comorbidities including cirrhosis/renal insufficiency. discussed complications of chemotherapy -- weekly carbo/taxol. discussed port placement. may need repeat paracentesis. hold off on peritoneal catheter until evaluated by derrick car operator-onc
[2016-08-19 07:43] LABS: BASOPHIL 1.1 % (0-2.0); EOSINOPHIL 0.2 % (0-4.5); MCHC 31.8 g/dl (32.0-36.0); MEAN CELL VOLUME 91.1 fl (80-96); MEAN PLT VOLUME 9.3 fl (7.5-11.1); PLATELET COUNT 427 K/MM3 (134-434); RDW 17.1 % (11.6-15.6); WHITE BLOOD COUNT 23.6 K/mm3 (4.0-10.0)
[2016-08-19 08:10] LABS: CA 19-9 400 U/mL (0-35)
[2016-08-19 08:28] LABS: CALCIUM 8.9 mg/dL (8.5-10.1); COCKROFT - GAULT 40.4855; CREATININE 2.1 mg/dL (0.55-1.02); MAGNESIUM 2.6 mg/dL (1.8-2.4); PHOSPHOROUS 4.2 mg/dL (2.5-4.9)
[2016-08-19] MEDS: predniSONE 20 MG TABLET (UD) PO SCH (10:14)
[2016-08-19] MEDS: PANTOPRAZOLE 40 MG TABLET (FP) PO SCH (10:14)
[2016-08-19] MEDS: METOPROLOL TARTRATE 50 MG TABLET (FP) PO SCH ×2 (10:14→21:25)
[2016-08-19] MEDS: FUROSEMIDE 40 MG/4 ML INJECTABLE VIAL IVPUSH SCH (10:14)
--- NOTE | 2016-08-19 11:05 | PN ---
Physical Exam: SUBJECTIVE: Patient seen and examined. She is feeling the same as yesterday, complaining of abdominal discomfort. OBJECTIVE: Vital Signs Period Temp Pulse Resp BP Sys/Vargas Pulse Ox Last 24 Hr 97.5 F-98.3 F 81-100 16-20 144-146/61-71 94 GENERAL: The patient is awake, alert, and fully oriented, in no acute distress. HEAD: Normal with no signs of trauma. EYES: extraocular movements intact, sclera anicteric, conjunctiva clear. No ptosis. ENT: moist mucous membranes. NECK: Trachea midline, full range of motion, supple. LUNGS: Breath sounds equal, clear to auscultation bilaterally, no wheezes, no crackles, no accessory muscle use. HEART: Regular rate and rhythm, S1, S2 without murmur, rub or gallop. ABDOMEN: Soft, nontender, distended, normoactive bowel sounds, no guarding, no rebound, ascites present. EXTREMITIES: no edema. NEUROLOGICAL: No facial asymmetry. Normal speech, gait not observed. PSYCH: Normal mood, normal affect. SKIN: Warm, dry, normal turgor, no rashes or lesions noted Laboratory Results - last 24 hr 08/14/16 08/18/16 08/18/16 14:55 06:15 06:15 WBC RBC Hgb Hct MCV MCHC RDW Plt Count MPV Neutrophils % Lymphocytes % Monocytes % Eosinophils % Basophils % PTT (Actin FS) LA PTT Baseline 37.4 dRVVT Confirm Interp 45.8 H dRVVT Mixing Study 41.7 Sodium Potassium Chloride Carbon Dioxide Anion Gap BUN Creatinine Random Glucose Hemoglobin A1c % 9.0 H D Calcium Phosphorus Magnesium Iron Ferritin 555.645 H Tumor Marker AFP Carcinoembryonic Ag CA 19-9 Antigen Vitamin B12 1004 H Hepatitis A IgM Ab Hep A IgM Ab Confirm Hepatitis A Ab Total Hep Bs Antigen Hep Bs Ag Confirmation Hep Bs Antibody Hep B Core Total Ab Hep B Core IgM Ab Hep B Core Ab Interpret Hepatitis C Antibody Hepatitis C Ab (EIA) 08/18/16 08/18/16 08/18/16 06:15 06:15 06:15 WBC RBC Hgb Hct MCV MCHC RDW Plt Count MPV Neutrophils % Lymphocytes % Monocytes % Eosinophils % Basophils % PTT (Actin FS) LA PTT Baseline dRVVT Confirm Interp dRVVT Mixing Study Sodium Potassium Chloride Carbon Dioxide Anion Gap BUN Creatinine Random Glucose Hemoglobin A1c % Calcium Phosphorus Magnesium Iron 73 Ferritin Tumor Marker AFP 1.9 Carcinoembryonic Ag 1.6 CA 19-9 Antigen 400 H Vitamin B12 Hepatitis A IgM Ab Negative Hep A IgM Ab Confirm Cancelled Hepatitis A Ab Total Cancelled Hep Bs Antigen Cancelled Negative Hep Bs Ag Confirmation Cancelled Hep Bs Antibody Cancelled Hep B Core Total Ab Cancelled Hep B Core IgM Ab Negative Hep B Core Ab Interpret Cancelled Hepatitis C Antibody Cancelled Hepatitis C Ab (EIA) <0.1 08/19/16 08/19/16 08/19/16 06:40 06:40 06:40 WBC 23.6 H RBC 4.71 Hgb 13.7 Hct 42.9 MCV 91.1 MCHC 31.8 L RDW 17.1 H Plt Count 427 D MPV 9.3 Neutrophils % 82.0 Lymphocytes % 10.4 D Monocytes % 6.3 Eosinophils % 0.2 D Basophils % 1.1 D PTT (Actin FS) 55.6 H LA PTT Baseline dRVVT Confirm Interp dRVVT Mixing Study Sodium 135 L Potassium 5.3 H Chloride 97 L Carbon Dioxide 22 Anion Gap 16 BUN 93 H Creatinine 2.1 H D Random Glucose 239 H Hemoglobin A1c % Calcium 8.9 Phosphorus 4.2 Magnesium 2.6 H Iron Ferritin Tumor Marker AFP Carcinoembryonic Ag CA 19-9 Antigen Vitamin B12 Hepatitis A IgM Ab Hep A IgM Ab Confirm Hepatitis A Ab Total Hep Bs Antigen Hep Bs Ag Confirmation Hep Bs Antibody Hep B Core Total Ab Hep B Core IgM Ab Hep B Core Ab Interpret Hepatitis C Antibody Hepatitis C Ab (EIA) Active Medications Generic Name Dose Route Start Last Admin Trade Name Pachecoq PRN Reason Stop Dose Admin Acetaminophen 650 mg 08/15/16 15:50 08/15/16 16:07 Tylenol - PO 650 mg Q8H PRN Administration PAIN Furosemide 40 mg 08/17/16 10:00 08/19/16 10:14 Lasix Injection - IVPUSH 40 mg DAILY [facility] Administration Heparin Sodium (Porcine) 5,000 unit 08/14/16 14:55 08/17/16 09:05 Heparin - IVPUSH 5,000 unit PRN PRN Administration Heparin Sodium (Porcine) 1,000 unit 08/14/16 14:55 08/16/16 09:05 Heparin - IVPUSH 1,000 unit PRN PRN Administration Heparin Sodium/Dextrose 500 mls @ 20 mls/hr 08/14/16 15:00 08/18/16 15:50 Heparin Infusion - IVPB 22 mls/hr TITR ASTR[facility] Administration Protocol 1,000 UNITS/HR Metoprolol Tartrate 50 mg 08/12/16 22:45 08/19/16 10:14 Lopressor - PO 50 mg BID [facility] Administration Pantoprazole Sodium 40 mg 08/13/16 10:00 08/19/16 10:14 Protonix - PO 40 mg DAILY [facility] Administration Prednisone 10 mg 08/16/16 17:57 08/19/16 10:14 Deltasone - PO 10 mg DAILY [facility] Administration ASSESSMENT/PLAN: 76 year old female with a PMH of HTN, GERGD, autoimmune hepatitis diagnosed in May 2016 who presents to the hospital complaining of SOB x 3 days. She was found to have ascites. 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 Thank you. Visit type - Emergency Visit Emergency Visit: Yes ED Registration Date: 08/12/16 Care time: The patient presented to the Emergency Department on the above date and was hospitalized for further evaluation of their emergent condition. - New Patient This patient is new to me today: No - Critical Care Critical Care patient: No
--- NOTE | 2016-08-19 13:01 | PN ---
Progress Note (short form) - Note Progress Note: Renal Follow up for FARHEEN Pt seen and examined at the bedside continues to have bloating feeling no sob or chest pain no N/V/D legs remain swollen good urine output Vital Signs Temperature 98.1 F 08/18/16 20:39 Pulse Rate 92 H 08/19/16 00:54 Respiratory Rate 18 08/19/16 00:54 Blood Pressure 146/66 08/19/16 00:54 O2 Sat by Pulse Oximetry (%) 94 L 08/18/16 21:00 Intake & Output 08/16/16 08/17/16 08/18/16 08/19/16 23:59 23:59 23:59 23:59 Intake Total 1851 2029 904 264 Balance 1851 2029 904 264 Weight 249 lb 1 oz 249 lb 5 oz 249 lb 252 lb 1 oz Gen: NAD CVS: RRR, No M/R Lungs: CTA Abd: + Ascities Ext: 2+ edema in b/l LE CBC, BMP 08/19/16 06:40 08/19/16 06:40 Laboratory Tests 08/18/16 08/19/16 08/19/16 06:15 06:40 06:40 Calcium 8.9 Phosphorus 4.2 Magnesium 2.6 H Carcinoembryonic Ag 1.6 CA 19-9 Antigen 400 H CA 125 Antigen Pending Current Medications Acetaminophen (Tylenol -) 650 mg PO Q8H PRN PRN Reason: PAIN Last Admin: 08/15/16 16:07 Dose: 650 mg Furosemide (Lasix Injection -) 40 mg IVPUSH DAILY [facility] Last Admin: 08/19/16 10:14 Dose: 40 mg Heparin Sodium (Porcine) (Heparin -) 5,000 unit IVPUSH PRN PRN Last Admin: 08/17/16 09:05 Dose: 5,000 unit Heparin Sodium (Porcine) (Heparin -) 1,000 unit IVPUSH PRN PRN Last Admin: 08/16/16 09:05 Dose: 1,000 unit Heparin Sodium/Dextrose (Heparin Infusion -) 500 mls @ 20 mls/hr IVPB TITR [facility] ; 1,000 UNITS/HR PRN Reason: Protocol Last Admin: 08/18/16 15:50 Dose: 22 mls/hr Metoprolol Tartrate (Lopressor -) 50 mg PO BID [facility] Last Admin: 08/19/16 10:14 Dose: 50 mg Pantoprazole Sodium (Protonix -) 40 mg PO DAILY [facility] Last Admin: 08/19/16 10:14 Dose: 40 mg Prednisone (Deltasone -) 10 mg PO DAILY [facility] Last Admin: 08/19/16 10:14 Dose: 10 mg A/P 76 year old woman with PMhx of Autoimmune hepatitis (on Prednisone/Azothiprine) , GERD who presented with increased Abd and lower extremity swelling and found to have Ascities with FARHEEN with BUN/Cr of 77/1.8. #Acute Renal Failure in setting of Autoimmune Hepatitis and Ascities Etiology of FARHEEN Type 2 Hepato-Renal Syndrome Cr up to 2.1 from 1.6 yesterday can expect the renal function to fluctuate based on volume status/Ascities volume Aldactone discontinued because of hyperkalemia Continue IV lasix -> can change to PO no acute indication for dialysis will need to monitor renal function closely as outpatient #Autoimmune hepatitis/Abnormal cytology on Prednisone Heme/GI followup HEEL SORTER Oncology to see pt for repeat therapeutic paracentesis #DVT on Heparin gtt convert to coumadin as per PMD Chris Ashley DO
--- NOTE | 2016-08-19 13:16 | PN ---
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; will need port for chemotx and possible peritoneal catheter for intraperitoneal chemo and ascitic fluid drainage prn pt asked if she ould have second opinion at [place]; I advised her to d/w dr Garvey if possible to be transferred or if she should go as outpt (in which case she should be switched first to coumadin) will ask vascular sx abot port placement and possible IVC filter - Current Medication List Current Medications: Active Medications Acetaminophen (Tylenol -) 650 mg PO Q8H PRN PRN Reason: PAIN Last Admin: 08/15/16 16:07 Dose: 650 mg Furosemide (Lasix Injection -) 40 mg IVPUSH DAILY [facility] Last Admin: 08/19/16 10:14 Dose: 40 mg Heparin Sodium (Porcine) (Heparin -) 5,000 unit IVPUSH PRN PRN Last Admin: 08/17/16 09:05 Dose: 5,000 unit Heparin Sodium (Porcine) (Heparin -) 1,000 unit IVPUSH PRN PRN Last Admin: 08/16/16 09:05 Dose: 1,000 unit Heparin Sodium/Dextrose (Heparin Infusion -) 500 mls @ 20 mls/hr IVPB TITR ASTRID ; 1,000 UNITS/HR PRN Reason: Protocol Last Admin: 08/18/16 15:50 Dose: 22 mls/hr Metoprolol Tartrate (Lopressor -) 50 mg PO BID [facility] Last Admin: 08/19/16 10:14 Dose: 50 mg Pantoprazole Sodium (Protonix -) 40 mg PO DAILY [facility] Last Admin: 08/19/16 10:14 Dose: 40 mg Prednisone (Deltasone -) 10 mg PO DAILY [facility] Last Admin: 08/19/16 10:14 Dose: 10 mg - Objective Vital Signs: Vital Signs Temperature 98.1 F 08/18/16 20:39 Pulse Rate 92 H 08/19/16 00:54 Respiratory Rate 18 08/19/16 00:54 Blood Pressure 146/66 08/19/16 00:54 O2 Sat by Pulse Oximetry (%) 94 L 08/18/16 21:00 Constitutional: Yes: No Distress, Calm Eyes: Yes: Conjunctiva Clear HENT: Yes: Atraumatic Neck: Yes: Supple Cardiovascular: Yes: Regular Rate and Rhythm Respiratory: Yes: CTA Bilaterally Gastrointestinal: Yes: Soft, Ascites Genitourinary: No: CVA Tenderness - Left, CVA Tenderness - Right Musculoskeletal: No: Joint Stiffness, Joint Swelling Extremities: No: Cold, Cool Edema: Yes Integumentary: No: Venous Stasis Changes Neurological: Yes: WNL, Alert, Oriented ...Motor Strength: WNL Psychiatric: Yes: WNL, Alert, Oriented. No: Agitated Labs: CBC, BMP 08/19/16 06:40 08/19/16 06:40 INR, PTT INR 1.04 (0.82-1.09) 08/14/16 14:55 - ....Imaging Other: Report Reviewed Assessment/Plan 76 year old woman with PMhx of Autoimmune hepatitis (on Prednisone/Azothiprine) , HTN, OA, obesity, GERD who presented with increased Abd and lower extremity swelling, autoimmune hepatitis and liver cirrhosis on CT scan, CRF malignant Ascities see above heme onc and blind stitch machine operator onc eval, chemotx vascular sx eval for port, possible IVC filter DVT on IV heparin, will need coumadin eventually d/w pt and staff, d/w pt's 2 sons and sister at bedside pt to explore with ACTING MANAGER thr possibility of second opinion at [place] if she wishes so t time 40 min
--- NOTE | 2016-08-19 15:52 | PN ---
Progress Note (short form) - Note Progress Note: VAscular Surgery Pt seen and examined. Ovarian CA advanced. Right lower extremity DVT. Needs port. Spoke to Heme/onc -- they do not prefer filter since pt is hypercoaguble and might clot IVC. Will place port on tuesday. Heme/onc would like to speak to grey roll man/onc first. Dayday Barrientos DO
[2016-08-19] MEDS: HEPARIN INFUSION - 500 ML IVPB SCH (16:44)
--- NOTE | 2016-08-19 16:52 | PN ---
Progress Note, Physician History of Present Illness: Ascites reaccumulating with consequent dyspnea. Unfortunately peritoneal fluid cytology is significant for peritoneal carcinomatosis. - Current Medication List Current Medications: Active Medications Acetaminophen (Tylenol -) 650 mg PO Q8H PRN PRN Reason: PAIN Last Admin: 08/15/16 16:07 Dose: 650 mg Furosemide (Lasix Injection -) 40 mg IVPUSH DAILY [facility] Last Admin: 08/19/16 10:14 Dose: 40 mg Heparin Sodium (Porcine) (Heparin -) 5,000 unit IVPUSH PRN PRN Last Admin: 08/17/16 09:05 Dose: 5,000 unit Heparin Sodium (Porcine) (Heparin -) 1,000 unit IVPUSH PRN PRN Last Admin: 08/16/16 09:05 Dose: 1,000 unit Heparin Sodium/Dextrose (Heparin Infusion -) 500 mls @ 20 mls/hr IVPB TITR ASTRID ; 1,000 UNITS/HR PRN Reason: Protocol Last Admin: 08/19/16 16:44 Dose: 22 mls/hr Metoprolol Tartrate (Lopressor -) 50 mg PO BID [facility] Last Admin: 08/19/16 10:14 Dose: 50 mg Pantoprazole Sodium (Protonix -) 40 mg PO DAILY [facility] Last Admin: 08/19/16 10:14 Dose: 40 mg Prednisone (Deltasone -) 10 mg PO DAILY [facility] Last Admin: 08/19/16 10:14 Dose: 10 mg - Objective Vital Signs: Vital Signs Temperature 98.1 F 08/19/16 14:51 Pulse Rate 83 08/19/16 14:51 Respiratory Rate 16 08/19/16 14:51 Blood Pressure 133/57 08/19/16 14:51 O2 Sat by Pulse Oximetry (%) 94 L 08/18/16 21:00 Constitutional: Yes: No Distress, Calm Neck: Yes: Supple Cardiovascular: Yes: Regular Rate and Rhythm Respiratory: Yes: Regular, Diminished Gastrointestinal: Yes: Normal Bowel Sounds, Soft, Abdomen, Obese Edema: Yes Edema: LLE: 3+, RLE: 3+ Labs: CBC, BMP 08/19/16 06:40 08/19/16 06:40 INR, PTT INR 1.04 (0.82-1.09) 08/14/16 14:55 Problem List - Problems (1) Ascites Code(s): R18.8 - OTHER ASCITES Qualifiers: Qualified Code(s): R18.8 - Other ascites (2) Acute diastolic heart failure Code(s): I50.31 - ACUTE DIASTOLIC (CONGESTIVE) HEART FAILURE (3) Hypertensive cardiomyopathy Code(s): I11.9 - HYPERTENSIVE HEART DISEASE WITHOUT HEART FAILURE I42.9 - CARDIOMYOPATHY, UNSPECIFIED Qualifiers: Qualified Code(s): I11.0 - Hypertensive heart disease with heart failure (4) Autoimmune hepatitis Code(s): K75.4 - AUTOIMMUNE HEPATITIS (5) Peripheral edema Code(s): R60.9 - EDEMA, UNSPECIFIED (6) Acute kidney injury Code(s): N17.9 - ACUTE KIDNEY FAILURE, UNSPECIFIED (7) Leukocytosis Code(s): D72.829 - ELEVATED WHITE BLOOD CELL COUNT, UNSPECIFIED Qualifiers: Qualified Code(s): D72.829 - Elevated white blood cell count, unspecified (8) Deep venous embolism and thrombosis of right lower extremity Code(s): I82.401 - ACUTE EMBOLISM AND THOMBOS UNSP DEEP VEINS OF R LOW EXTREM Assessment/Plan 1. 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 HTN/HCVD 3. Autoimmune hepatitis 4. Acute on chronic kidney injury and hyperkalemia 5. Leukocytosis referable to chronic steroids vs SBP 6. RLE DVT PLAN: 1. F/u Knowledge Management Advisor-onc eval, ca 125, abd and pelvic CT shows only fibroid uterus, considering repeat paracentesis 2. Change Lasix 40 po mg qd with monitoring renal function and electrolytes 3. Continue Lopressor 50 mg bid and eventual HANS-I/ARB once renal function stabilizes 4. IV heparin drip->coumadin per INR and Prednisone taper with GI protection
--- NOTE | 2016-08-19 22:59 | PN ---
Progress Note (short form) - Note Progress Note: patient seen and exmined feels ok Last Vital Signs Temp Pulse Resp BP Pulse Ox 98.3 F 97 H 18 130/62 95 08/19/16 21:25 08/19/16 21:25 08/19/16 21:25 08/19/16 21:25 08/19/16 21:00 Neck: Supple Nodes: Without adenopathy Cor: RSR, No murmurs, No gallops Lungs: Clear to P&A Abd: Soft, Normal bowel sounds, ascites ++ Ext:2+ edema b/l Abnormal Lab Results 08/18/16 08/19/16 08/19/16 06:15 06:40 06:40 WBC 23.6 H MCHC 31.8 L RDW 17.1 H PTT (Actin FS) Sodium 135 L Potassium 5.3 H Chloride 97 L BUN 93 H Creatinine 2.1 H D Random Glucose 239 H Magnesium 2.6 H CA 19-9 Antigen 400 H CA 125 Antigen 08/19/16 08/19/16 06:40 06:40 WBC MCHC RDW PTT (Actin FS) 55.6 H Sodium Potassium Chloride BUN Creatinine Random Glucose Magnesium CA 19-9 Antigen CA 125 Antigen 9296.0 H Active Medications Generic Name Dose Route Start Last Admin Trade Name Freq PRN Reason Stop Dose Admin Acetaminophen 650 mg 08/15/16 15:50 08/15/16 16:07 Tylenol - PO 650 mg Q8H PRN Administration PAIN Heparin Sodium (Porcine) 5,000 unit 08/14/16 14:55 08/17/16 09:05 Heparin - IVPUSH 5,000 unit PRN PRN Administration Heparin Sodium (Porcine) 1,000 unit 08/14/16 14:55 08/16/16 09:05 Heparin - IVPUSH 1,000 unit PRN PRN Administration Heparin Sodium/Dextrose 500 mls @ 20 mls/hr 08/14/16 15:00 08/19/16 16:44 Heparin Infusion - IVPB 22 mls/hr TITR ASTRID Administration Protocol 1,000 UNITS/HR Metoprolol Tartrate 50 mg 08/12/16 22:45 08/19/16 21:25 Lopressor - PO 50 mg BID [facility] Administration Pantoprazole Sodium 40 mg 08/13/16 10:00 08/19/16 10:14 Protonix - PO 40 mg DAILY [facility] Administration Prednisone 10 mg 08/16/16 17:57 08/19/16 10:14 Deltasone - PO 10 mg DAILY [facility] Administration A/P 76 y/o patient with autoimmune hepatitis, cirrhosis, dvt rle, presenting with ascites ascitic fluid + 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 But if unable to anticoaglae will need ivc filter. will discuss with vascular. [place] choice of a/c will be lovenox but given ongoing renal insufficiency will need to consider bridging to coumadin. possible port placement early next week patient wants to consider 2nd opinion at [facility]--family to pursue. discussed short term plan for paracentesis, holding diuretics, monitoring renal function, possible port placement
--- NOTE | 2016-08-20 05:20 | CONSULT ---
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 Ariza Reason for Consultation:: Ovarian/peritoneal cancer - History of Present Illness Chief Complaint: Abdominal fullness and shortness of breath History of Present Illness: This is a 76 years old woman with the above presentations admitted to the hospital. She was found to have with PMhx of Autoimmune hepatitis (on Prednisone/Azothiprine), GERD who presented with increased Abd and lower extremity swelling and found to have Ascities with FARHEEN with BUN/Cr of 77/1.8. She was diagnosed with a DVT and is being treated with heparin and coumadin conversion. 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 CA 125 is pending. She had mammogram in the last few years but not her colonoscopy. She admits fullness of abdomen but is without any vaginal bleeding. - History Source History Provided By: Patient Limitations to Obtaining History: No Limitations - Past Medical History Cardio/Vascular: Yes: HTN Gastrointestinal: Yes: GERD Hepatobiliary: Yes: Other (Autoimmune Hepatitis) Endocrine: Yes: Other (Obesity) - Alcohol/Substance Use Hx Alcohol Use: No - Smoking History Smoking history: Never smoked Have you smoked in the past 12 months: No Home Medications - Allergies Allergies/Adverse Reactions: Allergies Allergy/AdvReac Type Severity Reaction Status Date / Time NSAIDS (Non-Steroidal Allergy Severe Difficulty Verified 08/12/16 16:59 Anti-Inflamma Breathing - Home Medications Home Medications: Ambulatory Orders Azathioprine [Imuran] 50 mg PO BID 08/12/16 Furosemide [Lasix -] 20 mg PO DAILY 08/12/16 Hydrochlorothiazide 25 mg PO DAILY 08/12/16 Metoprolol Tartrate [Lopressor -] 50 mg PO BID 08/12/16 Omeprazole 40 mg PO DAILY 08/12/16 Prednisone [Deltasone -] 60 mg PO DAILY 08/12/16 Family Disease History - Family Disease History Family Disease History: Other: Mother (Lupus and dies fo lupus encephalitis), Sister (Graves disease) Other Family History: ANother sister of nsulin dependent diabetes, Physical Exam Vital Signs: Vital Signs Temperature 98.3 F 08/19/16 21:25 Pulse Rate 97 H 08/19/16 21:25 Respiratory Rate 18 08/19/16 21:25 Blood Pressure 130/62 08/19/16 21:25 O2 Sat by Pulse Oximetry (%) 94 L 08/19/16 09:00 Constitutional: Yes: Well Nourished Eyes: Yes: WNL HENT: Yes: WNL Neck: Yes: WNL Cardiovascular: Yes: WNL Respiratory: Yes: Other (decreased basal sounds bilaterally) Gastrointestinal: Yes: Abdomen, Obese, Ascites Extremities: Yes: WNL Labs: CBC, BMP 08/19/16 06:40 08/19/16 06:40 Imaging - Results Cat Scan: Report Reviewed Assessment/Plan 76 year old woman with PMhx of Autoimmune hepatitis (on Prednisone/Azothiprine) , GERD , possible ovarian or peritoneal cancer, new right DVT #Autoimmune hepatitis/ Abnormal cytology on Prednisone consistent with gynecologic cancer on paracentesis pending CA 125 result likely gynecologic cancer from cytology given the disease status, co-morbidity and recent diagnosis of DVT I would consider neoadjuvant chemotherapy rather than primary debulking check colonoscopy follow up the elevated CA199 #Right DVT on Heparin gtt convert to coumadin as per PMD The patient expressed the desire to obtain a consult at [facility]
[2016-08-20 07:56] LABS: MCH 29.2 pg (25.7-33.7); MCHC 32.1 g/dl (32.0-36.0); MEAN CELL VOLUME 90.8 fl (80-96); MEAN PLT VOLUME 9.6 fl (7.5-11.1); PLATELET COUNT 428 K/MM3 (134-434); RDW 16.4 % (11.6-15.6); WHITE BLOOD COUNT 23.5 K/mm3 (4.0-10.0)
[2016-08-20 08:30] LABS: ALBUMIN 2.6 g/dl (3.4-5.0); PHOSPHOROUS 5.2 mg/dL (2.5-4.9)
[2016-08-20] MEDS: HEPARIN NA (PORCINE) 5,000 UNITS/ML 1ML VIAL IVPUSH PRN (08:32)
[2016-08-20 08:36] LABS: BILIRUBIN,TOTAL 0.7 mg/dL (0.2-1.0); CALCIUM 8.6 mg/dL (8.5-10.1); COCKROFT - GAULT 37.043; CREATININE 2.3 mg/dL (0.55-1.02); MAGNESIUM 2.4 mg/dL (1.8-2.4); TOT PROT 5.8 g/dl (6.4-8.2)
[2016-08-20] MEDS: predniSONE 20 MG TABLET (UD) PO SCH (09:40)
[2016-08-20] MEDS: PANTOPRAZOLE 40 MG TABLET (FP) PO SCH (09:40)
[2016-08-20] MEDS: METOPROLOL TARTRATE 50 MG TABLET (FP) PO SCH ×2 (09:40→21:38)
--- NOTE | 2016-08-20 10:31 | PN ---
Progress Note, Physician Chief Complaint: in bed nad no new c/o; consults reviewed and d/w pt d/w dr Barrientos and dr Garvey; will get port for IV chemo but no IVC filter (risk of clotting); also no peritoneal cath for now but might need to be tapped again labs noted; higher creat; higher K - Current Medication List Current Medications: Active Medications Acetaminophen (Tylenol -) 650 mg PO Q8H PRN PRN Reason: PAIN Last Admin: 08/15/16 16:07 Dose: 650 mg Heparin Sodium (Porcine) (Heparin -) 5,000 unit IVPUSH PRN PRN Last Admin: 08/20/16 08:32 Dose: 5,000 unit Heparin Sodium (Porcine) (Heparin -) 1,000 unit IVPUSH PRN PRN Last Admin: 08/16/16 09:05 Dose: 1,000 unit Heparin Sodium/Dextrose (Heparin Infusion -) 500 mls @ 20 mls/hr IVPB TITR ASTRID ; 1,000 UNITS/HR PRN Reason: Protocol Last Titration: 08/20/16 08:32 Dose: 1,250 units/hr Metoprolol Tartrate (Lopressor -) 50 mg PO BID [facility] Last Admin: 08/20/16 09:40 Dose: 50 mg Pantoprazole Sodium (Protonix -) 40 mg PO DAILY [facility] Last Admin: 08/20/16 09:40 Dose: 40 mg Prednisone (Deltasone -) 10 mg PO DAILY [facility] Last Admin: 08/20/16 09:40 Dose: 10 mg Sodium Polystyrene Sulfonate (Kayexalate -) 15 gm PO ONCE ONE Stop: 08/20/16 10:28 - Objective Vital Signs: Vital Signs Temperature 97.7 F 08/20/16 09:00 Pulse Rate 87 08/20/16 09:00 Respiratory Rate 18 08/20/16 09:00 Blood Pressure 122/57 08/20/16 09:00 O2 Sat by Pulse Oximetry (%) 94 L 08/20/16 09:00 Constitutional: Yes: No Distress, Calm Eyes: Yes: Conjunctiva Clear HENT: Yes: Atraumatic Neck: Yes: Supple Cardiovascular: Yes: Regular Rate and Rhythm Respiratory: Yes: CTA Bilaterally Gastrointestinal: Yes: Soft, Ascites, Distention. No: Tenderness Genitourinary: No: CVA Tenderness - Left, CVA Tenderness - Right Musculoskeletal: No: Joint Stiffness, Joint Swelling Extremities: No: Cold, Cool Edema: Yes (both legs) Peripheral Pulses WNL: Yes Neurological: Yes: WNL, Alert, Oriented ...Motor Strength: WNL Psychiatric: Yes: WNL, Alert, Oriented. No: Agitated Labs: CBC, BMP 08/20/16 06:15 08/20/16 06:15 INR, PTT INR 1.04 (0.82-1.09) 08/14/16 14:55 - ....Imaging Other: Report Reviewed Assessment/Plan 76 year old woman with PMhx of Autoimmune hepatitis (on Prednisone/Azothiprine) , HTN, OA, obesity, GERD who presented with increased Abd and lower extremity swelling, autoimmune hepatitis and liver cirrhosis on CT scan, CRF malignant Ascities see above kayexalate po for high K; f/u labs will get abdomen US with dopple r/o IVC thromboses heme onc and cotton tier onc eval, chemotx vascular sx eval for port, DVT on IV heparin, will need coumadin eventually d/w pt and staff, pt to explore with PEDIATRIC LICENSED PRACTICAL NURSE thr possibility of second opinion at [place] if she wishes so t time 40 min
[2016-08-20] MEDS ORDERED: SODIUM POLYSTYRENE SULFONATE 15 GM/60 ML BOTTLE PO ONE (11:15)
[2016-08-20 11:26] LABS: METAMYELOCYTE 1 % (0-2); PLATELET ESTIMATE ADEQUATE (NORMAL)
--- NOTE | 2016-08-20 15:24 | PN ---
Progress Note, Physician History of Present Illness: Ascites reaccumulating with consequent dyspnea. 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 Ca-125 markedly elevated. - Current Medication List Current Medications: Active Medications Acetaminophen (Tylenol -) 650 mg PO Q8H PRN PRN Reason: PAIN Last Admin: 08/15/16 16:07 Dose: 650 mg Metoprolol Tartrate (Lopressor -) 50 mg PO BID [facility] Last Admin: 08/20/16 09:40 Dose: 50 mg Pantoprazole Sodium (Protonix -) 40 mg PO DAILY [facility] Last Admin: 08/20/16 09:40 Dose: 40 mg Prednisone (Deltasone -) 10 mg PO DAILY [facility] Last Admin: 08/20/16 09:40 Dose: 10 mg - Objective Vital Signs: Vital Signs Temperature 97.7 F 08/20/16 09:00 Pulse Rate 87 08/20/16 09:00 Respiratory Rate 18 08/20/16 09:00 Blood Pressure 122/57 08/20/16 09:00 O2 Sat by Pulse Oximetry (%) 94 L 08/20/16 09:00 Constitutional: Yes: No Distress, Calm Neck: Yes: Supple Cardiovascular: Yes: Regular Rate and Rhythm Respiratory: Yes: Regular, Diminished Gastrointestinal: Yes: Normal Bowel Sounds, Distention Edema: Yes Edema: LLE: 2+, RLE: 2+ Labs: CBC, BMP 08/20/16 06:15 08/20/16 06:15 INR, PTT INR 1.04 (0.82-1.09) 08/14/16 14:55 Problem List - Problems (1) Ascites Code(s): R18.8 - OTHER ASCITES Qualifiers: Qualified Code(s): R18.8 - Other ascites (2) Acute diastolic heart failure Code(s): I50.31 - ACUTE DIASTOLIC (CONGESTIVE) HEART FAILURE (3) Hypertensive cardiomyopathy Code(s): I11.9 - HYPERTENSIVE HEART DISEASE WITHOUT HEART FAILURE I42.9 - CARDIOMYOPATHY, UNSPECIFIED Qualifiers: Qualified Code(s): I11.0 - Hypertensive heart disease with heart failure (4) Autoimmune hepatitis Code(s): K75.4 - AUTOIMMUNE HEPATITIS (5) Peripheral edema Code(s): R60.9 - EDEMA, UNSPECIFIED (6) Acute kidney injury Code(s): N17.9 - ACUTE KIDNEY FAILURE, UNSPECIFIED (7) Leukocytosis Code(s): D72.829 - ELEVATED WHITE BLOOD CELL COUNT, UNSPECIFIED Qualifiers: Qualified Code(s): D72.829 - Elevated white blood cell count, unspecified (8) Deep venous embolism and thrombosis of right lower extremity Code(s): I82.401 - ACUTE EMBOLISM AND THOMBOS UNSP DEEP VEINS OF R LOW EXTREM Assessment/Plan 1. 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 HTN/HCVD 3. Autoimmune hepatitis 4. Acute on chronic kidney injury and hyperkalemia 5. Leukocytosis referable to chronic steroids vs SBP 6. RLE DVT PLAN: 1. Bottle Tester-onc eval appreciated suggest neoadjuvant chemotherapy, abd and pelvic CT shows only fibroid uterus, f/u repeat abd U/S 2. Lasix held to prevent intravascular volume depletion and pending renal recovery 3. Continue Lopressor 50 mg bid and consider HANS-I/ARB once renal function and hyperkalemia stabilizes 4. IV heparin drip pending port placement and paracentesis Tuesday and Prednisone taper with GI protection 5. Family to pursue second opinion at [facility]
[2016-08-20] MEDS ORDERED: HEPARIN NA (PORCINE) 5,000 UNITS/ML 1ML VIAL ONE (15:54)
[2016-08-20] MEDS ORDERED: HEPARIN NA (PORCINE) 5,000 UNITS/ML 1ML VIAL IVPUSH PRN ×2 (16:00)
[2016-08-20] MEDS ORDERED: HEPARIN NA (PORCINE) 5,000 UNITS/ML 1ML VIAL IVPUSH ONE (16:00)
[2016-08-20] MEDS ORDERED: SODIUM POLYSTYRENE SULFONATE 15 GM/60 ML BOTTLE ONE (16:24)
[2016-08-20] MEDS: HEPARIN INFUSION - 500 ML IVPB SCH (16:32)
--- NOTE | 2016-08-20 16:40 | PN ---
Progress Note (short form) - Note Progress Note: Renal Follow up for FARHEEN Pt seen and examined at the bedside not paracentesis today because she did not have enough fluid no sob or chest pain no abd pain good urine output Vital Signs Temperature 97.4 F L 08/20/16 14:57 Pulse Rate 94 H 08/20/16 14:57 Respiratory Rate 18 08/20/16 14:57 Blood Pressure 122/52 08/20/16 14:57 O2 Sat by Pulse Oximetry (%) 94 L 08/20/16 09:00 Intake & Output 08/17/16 08/18/16 08/19/16 08/20/16 23:59 23:59 23:59 23:59 Intake Total 2029 904 1558 842 Balance 2029 904 1558 842 Weight 249 lb 5 oz 249 lb 252 lb 1 oz 252 lb 9.6 oz Gen: NAD CVS: RRR, No M/R Lungs: CTA Abd: + Ascities Ext: 2+ edema in b/l LE CBC, BMP 08/20/16 06:15 08/20/16 06:15 Current Medications Acetaminophen (Tylenol -) 650 mg PO Q8H PRN PRN Reason: PAIN Last Admin: 08/15/16 16:07 Dose: 650 mg Heparin Sodium (Porcine) (Heparin -) 5,000 unit IVPUSH PRN PRN Heparin Sodium (Porcine) (Heparin -) 1,000 unit IVPUSH PRN PRN Heparin Sodium/Dextrose (Heparin Infusion -) 500 mls @ 20 mls/hr IVPB TITR ASTRID ; 1,000 UNITS/HR PRN Reason: Protocol Last Admin: 08/20/16 16:32 Dose: 20 mls/hr Metoprolol Tartrate (Lopressor -) 50 mg PO BID [facility] Last Admin: 08/20/16 09:40 Dose: 50 mg Pantoprazole Sodium (Protonix -) 40 mg PO DAILY [facility] Last Admin: 08/20/16 09:40 Dose: 40 mg Prednisone (Deltasone -) 10 mg PO DAILY [facility] Last Admin: 08/20/16 09:40 Dose: 10 mg A/P 76 year old woman with PMhx of Autoimmune hepatitis (on Prednisone/Azothiprine) , GERD who presented with increased Abd and lower extremity swelling and found to have Ascities with FARHEEN with BUN/Cr of 77/1.8. 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
--- NOTE | 2016-08-20 17:54 | PN ---
Progress Note (short form) - Note Progress Note: Vascular Surgery Will be on stand by for port placement , if pt does not go to [facility] for treatment Dayday Barrientos DO
--- NOTE | 2016-08-20 18:45 | PN ---
Progress Note (short form) - Note Progress Note: Patient seen and examined Discussed with family [facility] is prepared to place port and institute chemotherapy. Patient and family deciding if they want to begin treatment here or have all treatments at [facility]. Last Vital Signs Temp Pulse Resp BP Pulse Ox 98.4 F 87 18 120/54 94 L 08/20/16 18:00 08/20/16 18:00 08/20/16 18:00 08/20/16 18:00 08/20/16 09:00 HEENT: MALATHI, EOM Intact Oropharynx: No thrush, No mucositis Neck: Supple Cor: RSR, No murmurs, No gallops Lungs: decreased breath sounds bilaterally Abd:distended ascites Ext:No significant edema Skin: No rashes, Integument intact CBC, BMP 08/20/16 06:15 08/20/16 06:15 Current Medications Generic Name Dose Route Start Last Admin Trade Name Freq PRN Reason Stop Dose Admin Acetaminophen 650 mg 08/15/16 15:50 08/15/16 16:07 Tylenol - PO 650 mg Q8H PRN Administration PAIN Heparin Sodium (Porcine) 5,000 unit 08/20/16 16:00 Heparin - IVPUSH PRN PRN Heparin Sodium (Porcine) 1,000 unit 08/20/16 16:00 Heparin - IVPUSH PRN PRN Heparin Sodium/Dextrose 500 mls @ 20 mls/hr 08/20/16 16:00 08/20/16 16:32 Heparin Infusion - IVPB 20 mls/hr TITR ASTRID Administration Protocol 1,000 UNITS/HR Metoprolol Tartrate 50 mg 08/12/16 22:45 08/20/16 09:40 Lopressor - PO 50 mg BID [facility] Administration Pantoprazole Sodium 40 mg 08/13/16 10:00 08/20/16 09:40 Protonix - PO 40 mg DAILY [facility] Administration Prednisone 10 mg 08/16/16 17:57 08/20/16 09:40 Deltasone - PO 10 mg DAILY [facility] Administration Impression: Autoimmune hepatitis 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
--- NOTE | 2016-08-21 06:53 | PN ---
Progress Note, Physician History of Present Illness: in bed nad no new c/o higher BUN/Cr - Current Medication List Current Medications: Active Medications Acetaminophen (Tylenol -) 650 mg PO Q8H PRN PRN Reason: PAIN Last Admin: 08/15/16 16:07 Dose: 650 mg Heparin Sodium (Porcine) (Heparin -) 5,000 unit IVPUSH PRN PRN Heparin Sodium (Porcine) (Heparin -) 1,000 unit IVPUSH PRN PRN Heparin Sodium/Dextrose (Heparin Infusion -) 500 mls @ 20 mls/hr IVPB TITR ASTRID ; 1,000 UNITS/HR PRN Reason: Protocol Last Titration: 08/20/16 23:10 Dose: 900 units/hr Metoprolol Tartrate (Lopressor -) 50 mg PO BID [facility] Last Admin: 08/20/16 21:38 Dose: 50 mg Pantoprazole Sodium (Protonix -) 40 mg PO DAILY [facility] Last Admin: 08/20/16 09:40 Dose: 40 mg Prednisone (Deltasone -) 10 mg PO DAILY [facility] Last Admin: 08/20/16 09:40 Dose: 10 mg - Objective Vital Signs: Vital Signs Temperature 98.3 F 08/20/16 21:37 Pulse Rate 101 H 08/20/16 21:37 Respiratory Rate 20 08/20/16 21:37 Blood Pressure 142/78 08/20/16 21:37 O2 Sat by Pulse Oximetry (%) 94 L 08/20/16 21:00 Constitutional: Yes: No Distress, Calm Eyes: Yes: Conjunctiva Clear HENT: Yes: Atraumatic Neck: Yes: Supple Cardiovascular: Yes: Regular Rate and Rhythm Respiratory: Yes: CTA Bilaterally Gastrointestinal: Yes: Soft, Ascites, Distention. No: Tenderness Genitourinary: No: CVA Tenderness - Left, CVA Tenderness - Right, Hematuria Musculoskeletal: No: Joint Stiffness, Joint Swelling Extremities: No: Cold, Cool Edema: Yes (biateral legs) Integumentary: No: Rash, Venous Stasis Changes Neurological: Yes: WNL, Alert, Oriented ...Motor Strength: WNL Psychiatric: Yes: WNL, Alert, Oriented. No: Agitated, Suicidal Ideation Labs: CBC, BMP 08/20/16 06:15 08/20/16 06:15 INR, PTT INR 1.04 (0.82-1.09) 08/14/16 14:55 - ....Imaging Other: Report Reviewed Assessment/Plan 76 year old woman with PMhx of Autoimmune hepatitis (on Prednisone/Azothiprine) , HTN, OA, obesity, GERD who presented with increased Abd and lower extremity swelling, autoimmune hepatitis and liver cirrhosis on CT scan, CRF malignant Ascities mullerian origin Acute on CRF renal, heme onc and tip bander onc f/u vascular sx eval for port if pt decides to start treatment here; she said her family is looking into [facility] as second opinion; will let us know by tomorrow what she decides to do DVT on IV heparin, will need coumadin eventually d/w pt and staff,
[2016-08-21 08:37] LABS: MCH 29.2 pg (25.7-33.7); MCHC 32.1 g/dl (32.0-36.0); MEAN PLT VOLUME 9.4 fl (7.5-11.1); PLATELET COUNT 430 K/MM3 (134-434); RDW 16.9 % (11.6-15.6); WHITE BLOOD COUNT 23.7 K/mm3 (4.0-10.0)
[2016-08-21] MEDS: PANTOPRAZOLE 40 MG TABLET (FP) PO SCH (09:06)
[2016-08-21] MEDS: predniSONE 20 MG TABLET (UD) PO SCH (09:06)
[2016-08-21] MEDS: METOPROLOL TARTRATE 50 MG TABLET (FP) PO SCH ×2 (09:06→21:08)
[2016-08-21 09:11] LABS: ALBUMIN 2.3 g/dl (3.4-5.0); BILIRUBIN,TOTAL 0.8 mg/dL (0.2-1.0); CALCIUM 8.6 mg/dL (8.5-10.1); CREATININE 2.3 mg/dL (0.55-1.02); MAGNESIUM 2.6 mg/dL (1.8-2.4); PHOSPHOROUS 5.1 mg/dL (2.5-4.9); TOT PROT 5.3 g/dl (6.4-8.2)
[2016-08-21 09:18] LABS: PLATELET COMMENT2 NO CLOTTING DETECTED; PLATELET COMMENT3 FEW LARGE PLTS; PLATELET ESTIMATE SLT INCREASED (NORMAL)
[2016-08-21] MEDS: HEPARIN INFUSION - 500 ML IVPB SCH ×3 (09:39→17:17)
--- NOTE | 2016-08-21 10:50 | PN ---
Progress Note, Physician Chief Complaint: Events noted Peritoneal carcinomatosis History of Present Illness: Patient was seen and examined. Awake and alert. Chart was reviewed Denies chest pain or shortness of breath - Current Medication List Current Medications: Active Medications Acetaminophen (Tylenol -) 650 mg PO Q8H PRN PRN Reason: PAIN Last Admin: 08/15/16 16:07 Dose: 650 mg Heparin Sodium (Porcine) (Heparin -) 5,000 unit IVPUSH PRN PRN Heparin Sodium (Porcine) (Heparin -) 1,000 unit IVPUSH PRN PRN Heparin Sodium/Dextrose (Heparin Infusion -) 500 mls @ 20 mls/hr IVPB TITR ASTRID ; 1,000 UNITS/HR PRN Reason: Protocol Last Admin: 08/21/16 09:39 Dose: 21 mls/hr Metoprolol Tartrate (Lopressor -) 50 mg PO BID [facility] Last Admin: 08/21/16 09:06 Dose: 50 mg Pantoprazole Sodium (Protonix -) 40 mg PO DAILY [facility] Last Admin: 08/21/16 09:06 Dose: 40 mg Prednisone (Deltasone -) 10 mg PO DAILY [facility] Last Admin: 08/21/16 09:06 Dose: 10 mg - Objective Vital Signs: Vital Signs Temperature 98.5 F 08/21/16 06:00 Pulse Rate 92 H 08/21/16 06:00 Respiratory Rate 18 08/21/16 09:00 Blood Pressure 122/37 08/21/16 06:00 O2 Sat by Pulse Oximetry (%) 97 08/21/16 09:00 Neck: Yes: Supple Cardiovascular: Yes: Regular Rate and Rhythm, S1, S2 Respiratory: Yes: Diminished Gastrointestinal: Yes: Normal Bowel Sounds, Ascites. No: Tenderness Edema: Yes Edema: LLE: 2+, RLE: 2+ Labs: CBC, BMP 08/21/16 06:48 08/21/16 06:48 Assessment/Plan 1. 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 HTN/HCVD 3. Autoimmune hepatitis 4. Acute on chronic kidney injury and hyperkalemia 5. Leukocytosis referable to chronic steroids vs SBP 6. RLE DVT PLAN: 1. Internet Marketing Coordinator-oncology input noted - neoadjuvant chemotherapy. Family considering second opinion at [facility] 2. Monitor renal function 3. Continue Lopressor 50 mg bid and consider HANS-I/ARB once renal function and hyperkalemia stabilizes 4. IV heparin drip can be held for port placement and paracentesis Tuesday 5. Prednisone taper with GI protection Further plans are to follow Juan C Santoyo MD
--- NOTE | 2016-08-21 11:59 | PN ---
Progress Note (short form) - Note Progress Note: Renal Follow up for FARHEEN Pt seen and examined at the bedside did not sleep well poor apetite no sob or chest pain + abd pain when moving around Vital Signs Temperature 97.9 F 08/21/16 10:00 Pulse Rate 91 H 08/21/16 10:00 Respiratory Rate 18 08/21/16 10:00 Blood Pressure 106/70 08/21/16 10:00 O2 Sat by Pulse Oximetry (%) 97 08/21/16 09:00 Intake & Output 08/18/16 08/19/16 08/20/16 08/21/16 23:59 23:59 23:59 23:59 Intake Total 904 1558 1322 206 Balance 904 1558 1322 206 Weight 249 lb 252 lb 1 oz 252 lb 9.6 oz 252 lb 4.8 oz Gen: NAD CVS: RRR, No M/R Lungs: CTA Abd: + Ascities Ext: 2+ edema in b/l LE CBC, BMP 08/21/16 06:48 08/21/16 06:48 Laboratory Tests 08/21/16 06:48 Phosphorus 5.1 H Magnesium 2.6 H Current Medications Acetaminophen (Tylenol -) 650 mg PO Q8H PRN PRN Reason: PAIN Last Admin: 08/15/16 16:07 Dose: 650 mg Albumin Human (Albumin Human 25%) 12.5 gm IVPB Q6H ASTRID Stop: 08/23/16 06:01 Heparin Sodium (Porcine) (Heparin -) 5,000 unit IVPUSH PRN PRN Heparin Sodium (Porcine) (Heparin -) 1,000 unit IVPUSH PRN PRN Heparin Sodium/Dextrose (Heparin Infusion -) 500 mls @ 20 mls/hr IVPB TITR ASTRID ; 1,000 UNITS/HR PRN Reason: Protocol Last Admin: 08/21/16 09:39 Dose: 21 mls/hr Metoprolol Tartrate (Lopressor -) 50 mg PO BID [facility] Last Admin: 08/21/16 09:06 Dose: 50 mg Pantoprazole Sodium (Protonix -) 40 mg PO DAILY [facility] Last Admin: 08/21/16 09:06 Dose: 40 mg Prednisone (Deltasone -) 10 mg PO DAILY [facility] Last Admin: 08/21/16 09:06 Dose: 10 mg A/P 76 year old woman with PMhx of Autoimmune hepatitis (on Prednisone/Azothiprine) , GERD who presented with increased Abd and lower extremity swelling and found to have Ascities with FARHEEN with BUN/Cr of 77/1.8. 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
--- NOTE | 2016-08-21 12:19 | PN ---
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
[2016-08-21] MEDS: ALBUMIN HUMAN 25% 12.5 GM/50 ML VIAL IVPB SCH ×2 (12:21→17:18)
[2016-08-21 15:06] LABS: SODIUM,RANDOM URINE 13 MMOL/L
[2016-08-21 15:07] LABS: CHLORIDE,RANDOM URINE < 10 MMOL/L
--- NOTE | 2016-08-21 15:19 | PN ---
Progress Note (short form) - Note Progress Note: VAscular Surgery Will place port in pt on tuesday. Spoke to heme/onc today. Dayday Barrientos DO
[2016-08-21] MEDS: ACETAMINOPHEN 325 MG TABLET (FP) PO PRN (21:08)
[2016-08-21] MEDS ORDERED: PT OWN MED DRAWER 7, Y5N ONE (23:16)
[2016-08-22] MEDS: ALBUMIN HUMAN 25% 12.5 GM/50 ML VIAL IVPB SCH ×4 (00:17→17:33)
[2016-08-22] MEDS: HEPARIN INFUSION - 500 ML IVPB SCH ×3 (02:03→17:32)
[2016-08-22] MEDS: ACETAMINOPHEN 325 MG TABLET (FP) PO PRN ×3 (04:34→22:13)
[2016-08-22] MEDS ORDERED: PT OWN MED DRAWER 7, Y5N ONE ×2 (06:24→11:32)
[2016-08-22 09:22] LABS: EOSINOPHIL 0.1 % (0-4.5); MCH 29.1 pg (25.7-33.7); MCHC 32.3 g/dl (32.0-36.0); PLATELET COUNT 454 K/MM3 (134-434); RDW 17.1 % (11.6-15.6); WHITE BLOOD COUNT 23.4 K/mm3 (4.0-10.0)
[2016-08-22] MEDS: predniSONE 20 MG TABLET (UD) PO SCH (09:42)
[2016-08-22] MEDS: PANTOPRAZOLE 40 MG TABLET (FP) PO SCH (09:42)
[2016-08-22] MEDS: METOPROLOL TARTRATE 50 MG TABLET (FP) PO SCH ×2 (09:42→22:13)
[2016-08-22 12:05] LABS: BILIRUBIN,TOTAL 0.8 mg/dL (0.2-1.0); CALCIUM 8.8 mg/dL (8.5-10.1); COCKROFT - GAULT 31.807; CREATININE 2.7 mg/dL (0.55-1.02); MAGNESIUM 2.6 mg/dL (1.8-2.4); PHOSPHOROUS 5.9 mg/dL (2.5-4.9); TOT PROT 5.7 g/dl (6.4-8.2)
--- NOTE | 2016-08-22 12:24 | PN ---
Progress Note, Physician History of Present Illness: Pt w/o SOB at rest. Pt with SANTA, leg edema, abd pressure. Pt w/o CP, palp., abd pain. - Current Medication List Current Medications: Active Medications Acetaminophen (Tylenol -) 650 mg PO Q8H PRN PRN Reason: PAIN Last Admin: 08/22/16 04:34 Dose: 650 mg Albumin Human (Albumin Human 25%) 12.5 gm IVPB Q6H ASTRID Stop: 08/23/16 06:01 Last Admin: 08/22/16 12:19 Dose: 12.5 gm Heparin Sodium (Porcine) (Heparin -) 5,000 unit IVPUSH PRN PRN Heparin Sodium (Porcine) (Heparin -) 1,000 unit IVPUSH PRN PRN Heparin Sodium/Dextrose (Heparin Infusion -) 500 mls @ 20 mls/hr IVPB TITR ASTRID ; 1,000 UNITS/HR PRN Reason: Protocol Last Admin: 08/22/16 02:03 Dose: 22 mls/hr Metoprolol Tartrate (Lopressor -) 50 mg PO BID [facility] Last Admin: 08/22/16 09:42 Dose: 50 mg Pantoprazole Sodium (Protonix -) 40 mg PO DAILY [facility] Last Admin: 08/22/16 09:42 Dose: 40 mg Prednisone (Deltasone -) 10 mg PO DAILY [facility] Last Admin: 08/22/16 09:42 Dose: 10 mg - Objective Vital Signs: Vital Signs Temperature 97.6 F 08/22/16 06:00 Pulse Rate 90 08/22/16 06:00 Respiratory Rate 20 08/22/16 06:00 Blood Pressure 113/49 08/22/16 06:00 O2 Sat by Pulse Oximetry (%) 95 08/21/16 21:00 Constitutional: Yes: No Distress, Calm Cardiovascular: Yes: Regular Rate and Rhythm, S1, S2 Respiratory: Yes: Regular, CTA Bilaterally Gastrointestinal: Yes: Normal Bowel Sounds, Ascites, Distention Edema: LLE: 2+, RLE: 2+ Neurological: Yes: Alert, Oriented Labs: CBC, BMP 08/22/16 08:15 08/22/16 07:45 INR, PTT INR 1.04 (0.82-1.09) 08/14/16 14:55 Problem List - Problems (1) Ascites Assessment/Plan: 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 Code(s): R18.8 - OTHER ASCITES Qualifiers: Qualified Code(s): R18.8 - Other ascites (2) Autoimmune hepatitis Code(s): K75.4 - AUTOIMMUNE HEPATITIS (3) Dyspnea on exertion Code(s): R06.09 - OTHER FORMS OF DYSPNEA (4) Acute kidney injury Code(s): N17.9 - ACUTE KIDNEY FAILURE, UNSPECIFIED (5) Leukocytosis Code(s): D72.829 - ELEVATED WHITE BLOOD CELL COUNT, UNSPECIFIED Qualifiers: Qualified Code(s): D72.829 - Elevated white blood cell count, unspecified (6) Obesity Code(s): E66.9 - OBESITY, UNSPECIFIED Assessment/Plan (Problem list cannot add new Dg.) Right leg DVT- on IV heparin drip; Rheum Consult appreciated Sales Associate CA- Onco consult and f/u appreciated; pt still to decide regarding place of treatment- pt's son today at bedside. AM labs
--- NOTE | 2016-08-22 13:23 | PN ---
Progress Note, Physician Chief Complaint: Events noted Diagnosed with Peritoneal carcinomatosis History of Present Illness: Patient was seen and examined. Awake and alert. Chart was reviewed Denies chest pain or shortness of breath - Current Medication List Current Medications: Active Medications Acetaminophen (Tylenol -) 650 mg PO Q8H PRN PRN Reason: PAIN Last Admin: 08/22/16 04:34 Dose: 650 mg Albumin Human (Albumin Human 25%) 12.5 gm IVPB Q6H SATRID Stop: 08/23/16 06:01 Last Admin: 08/22/16 12:19 Dose: 12.5 gm Heparin Sodium (Porcine) (Heparin -) 5,000 unit IVPUSH PRN PRN Heparin Sodium (Porcine) (Heparin -) 1,000 unit IVPUSH PRN PRN Heparin Sodium/Dextrose (Heparin Infusion -) 500 mls @ 20 mls/hr IVPB TITR ASTRID ; 1,000 UNITS/HR PRN Reason: Protocol Last Admin: 08/22/16 09:00 Dose: 22 mls/hr Metoprolol Tartrate (Lopressor -) 50 mg PO BID [facility] Last Admin: 08/22/16 09:42 Dose: 50 mg Pantoprazole Sodium (Protonix -) 40 mg PO DAILY [facility] Last Admin: 08/22/16 09:42 Dose: 40 mg Prednisone (Deltasone -) 10 mg PO DAILY [facility] Last Admin: 08/22/16 09:42 Dose: 10 mg - Objective Vital Signs: Vital Signs Temperature 97.6 F 08/22/16 06:00 Pulse Rate 90 08/22/16 06:00 Respiratory Rate 20 08/22/16 06:00 Blood Pressure 113/49 08/22/16 06:00 O2 Sat by Pulse Oximetry (%) 95 08/21/16 21:00 Neck: Yes: Supple Cardiovascular: Yes: Regular Rate and Rhythm, S1, S2 Respiratory: Yes: Diminished Gastrointestinal: Yes: Normal Bowel Sounds, Soft, Ascites. No: Tenderness Edema: Yes Edema: LLE: 1+, RLE: 1+ Labs: CBC, BMP 08/22/16 08:15 08/22/16 07:45 Assessment/Plan 1. 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 HTN/HCVD 3. Autoimmune hepatitis 4. Acute on chronic kidney injury and hyperkalemia 5. Leukocytosis referable to chronic steroids vs SBP 6. RLE DVT PLAN: 1. Recommended neoadjuvant chemotherapy by Wildlife Management Professor-Onc. Family [place] [facility] 2. Monitor renal function 3. Continue Lopressor 50 mg bid and consider HANS-I/ARB once renal function and hyperkalemia stabilizes 4. IV heparin drip and eventual oral anticoagulation 5. Prednisone taper with GI protection Further plans are to follow Juan C Santoyo MD
--- NOTE | 2016-08-22 15:19 | PN ---
Progress Note (short form) - Note Progress Note: Patient seen and examined Uncomfortable from abdominal ascites Shortness of breath , dyspneic on minimal exertion. Last Vital Signs Temp Pulse Resp BP Pulse Ox 98.1 F 84 17 130/60 95 08/22/16 13:50 08/22/16 13:50 08/22/16 13:50 08/22/16 13:50 08/21/16 21:00 HEENT: MALATHI, EOM Intact Oropharynx: No thrush, No mucositis Cor: RSR, No murmurs, No gallops Lungs:diminished breath sounds bilaterally Abd: ascites, distended Ext:significant edema LE Skin: No rashes, Integument intact CBC, BMP 08/22/16 08:15 08/22/16 07:45 INR, PTT INR 1.04 (0.82-1.09) 08/14/16 14:55 Current Medications Generic Name Dose Route Start Last Admin Trade Name Freq PRN Reason Stop Dose Admin Acetaminophen 650 mg 08/15/16 15:50 08/22/16 13:57 Tylenol - PO 650 mg Q8H PRN Administration PAIN Albumin Human 12.5 gm 08/21/16 12:00 08/22/16 12:19 Albumin Human 25% IVPB 08/23/16 06:01 12.5 gm Q6H ASTRID Administration Heparin Sodium (Porcine) 5,000 unit 08/20/16 16:00 Heparin - IVPUSH PRN PRN Heparin Sodium (Porcine) 1,000 unit 08/20/16 16:00 Heparin - IVPUSH PRN PRN Heparin Sodium/Dextrose 500 mls @ 20 mls/hr 08/20/16 16:00 08/22/16 09:00 Heparin Infusion - IVPB 22 mls/hr TITR ASTRID Administration Protocol 1,000 UNITS/HR Metoprolol Tartrate 50 mg 08/12/16 22:45 08/22/16 09:42 Lopressor - PO 50 mg BID [facility] Administration Pantoprazole Sodium 40 mg 08/13/16 10:00 08/22/16 09:42 Protonix - PO 40 mg DAILY [facility] Administration Prednisone 10 mg 08/16/16 17:57 08/22/16 09:42 Deltasone - PO 10 mg DAILY [facility] Administration 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
[2016-08-23] MEDS ORDERED: PT OWN MED DRAWER 7, Y5N ONE ×2 (00:19→23:14)
[2016-08-23] MEDS: ALBUMIN HUMAN 25% 12.5 GM/50 ML VIAL IVPB SCH ×3 (00:54→13:57)
[2016-08-23 07:28] LABS: MCH 29.7 pg (25.7-33.7); MCHC 32.8 g/dl (32.0-36.0); MEAN CELL VOLUME 90.5 fl (80-96); MEAN PLT VOLUME 9.5 fl (7.5-11.1); PLATELET COUNT 380 K/MM3 (134-434); WHITE BLOOD COUNT 22.9 K/mm3 (4.0-10.0)
[2016-08-23 08:19] LABS: ALBUMIN 3.2 g/dl (3.4-5.0); BILIRUBIN,TOTAL 0.8 mg/dL (0.2-1.0); CALCIUM 8.9 mg/dL (8.5-10.1); COCKROFT - GAULT 33.2775; CREATININE 2.6 mg/dL (0.55-1.02); MAGNESIUM 2.6 mg/dL (1.8-2.4); PHOSPHOROUS 5.8 mg/dL (2.5-4.9); TOT PROT 5.5 g/dl (6.4-8.2)
--- NOTE | 2016-08-23 08:46 | PN ---
Progress Note, Physician Chief Complaint: OOB to chair NAD VSS afebrile no new c/o - Current Medication List Current Medications: Active Medications Acetaminophen (Tylenol -) 650 mg PO Q8H PRN PRN Reason: PAIN Last Admin: 08/22/16 22:13 Dose: 650 mg Heparin Sodium (Porcine) (Heparin -) 5,000 unit IVPUSH PRN PRN Heparin Sodium (Porcine) (Heparin -) 1,000 unit IVPUSH PRN PRN Heparin Sodium/Dextrose (Heparin Infusion -) 500 mls @ 20 mls/hr IVPB TITR ASTRID ; 1,000 UNITS/HR PRN Reason: Protocol Last Admin: 08/22/16 17:32 Dose: 22 mls/hr Metoprolol Tartrate (Lopressor -) 50 mg PO BID [facility] Last Admin: 08/22/16 22:13 Dose: 50 mg Pantoprazole Sodium (Protonix -) 40 mg PO DAILY [facility] Last Admin: 08/22/16 09:42 Dose: 40 mg Prednisone (Deltasone -) 10 mg PO DAILY [facility] Last Admin: 08/22/16 09:42 Dose: 10 mg - Objective Vital Signs: Vital Signs Temperature 97.9 F 08/23/16 06:00 Pulse Rate 78 08/23/16 06:00 Respiratory Rate 20 08/23/16 06:00 Blood Pressure 109/53 08/23/16 06:00 O2 Sat by Pulse Oximetry (%) 96 08/22/16 21:00 Constitutional: Yes: No Distress, Calm Eyes: Yes: Conjunctiva Clear HENT: Yes: Atraumatic Neck: Yes: Supple Cardiovascular: Yes: Regular Rate and Rhythm Respiratory: Yes: CTA Bilaterally Gastrointestinal: Yes: Soft, Ascites, Distention. No: Tenderness Genitourinary: No: CVA Tenderness - Left, CVA Tenderness - Right Musculoskeletal: No: Joint Stiffness, Joint Swelling Extremities: No: Cold, Cool Edema: Yes Integumentary: No: Rash, Venous Stasis Changes Neurological: Yes: WNL, Alert, Oriented ...Motor Strength: WNL Psychiatric: Yes: WNL, Alert, Oriented. No: Agitated, Suicidal Ideation Labs: CBC, BMP 08/23/16 06:15 08/23/16 06:15 INR, PTT INR 1.04 (0.82-1.09) 08/14/16 14:55 - ....Imaging Other: Report Reviewed Assessment/Plan 76 year old woman with PMhx of Autoimmune hepatitis (on Prednisone/Azothiprine) , HTN, OA, obesity, GERD who presented with increased Abd and lower extremity swelling, autoimmune hepatitis and liver cirrhosis on CT scan, CRF malignant Ascities mullerian origin Acute on CRF increasing BUN/CReat. renal, heme onc and quality assurance consultant onc f/u pt said she decided to go to [facility] for further management and treatment; will d/ w team if she could be transferred to [facility] from [facility]. DVT on IV heparin, will need coumadin eventually d/w pt and staff
[2016-08-23] MEDS: METOPROLOL TARTRATE 50 MG TABLET (FP) PO SCH ×2 (10:53→23:24)
[2016-08-23] MEDS: predniSONE 20 MG TABLET (UD) PO SCH (10:53)
[2016-08-23] MEDS: PANTOPRAZOLE 40 MG TABLET (FP) PO SCH (10:53)
--- NOTE | 2016-08-23 11:35 | PN ---
Progress Note (short form) - Note Progress Note: Renal Follow up for FARHEEN Pt seen and examined at the bedside no acute complaints wants to have maligancy work up and [place] [facility] no sob or chest pain legs remain swollen Vital Signs Temperature 97.9 F 08/23/16 06:00 Pulse Rate 78 08/23/16 06:00 Respiratory Rate 20 08/23/16 06:00 Blood Pressure 109/53 08/23/16 06:00 O2 Sat by Pulse Oximetry (%) 96 08/22/16 21:00 Intake & Output 08/20/16 08/21/16 08/22/16 08/23/16 23:59 23:59 23:59 23:59 Intake Total 8251 070 2323 492 Balance 9987 022 6225 492 Weight 252 lb 9.6 oz 252 lb 4.8 oz 254 lb 9.6 oz 256 lb 8 oz Gen: NAD CVS: RRR, No M/R Lungs: CTA Abd: + Ascities Ext: 2+ edema in b/l LE CBC, BMP 08/23/16 06:15 08/23/16 06:15 Laboratory Tests 08/23/16 06:15 Phosphorus 5.8 H Magnesium 2.6 H Albumin 3.2 L Current Medications Acetaminophen (Tylenol -) 650 mg PO Q8H PRN PRN Reason: PAIN Last Admin: 08/22/16 22:13 Dose: 650 mg Heparin Sodium (Porcine) (Heparin -) 5,000 unit IVPUSH PRN PRN Heparin Sodium (Porcine) (Heparin -) 1,000 unit IVPUSH PRN PRN Heparin Sodium/Dextrose (Heparin Infusion -) 500 mls @ 20 mls/hr IVPB TITR ASTRID ; 1,000 UNITS/HR PRN Reason: Protocol Last Titration: 08/23/16 10:54 Dose: 1,100 units/hr Metoprolol Tartrate (Lopressor -) 50 mg PO BID [facility] Last Admin: 08/23/16 10:53 Dose: 50 mg Pantoprazole Sodium (Protonix -) 40 mg PO DAILY [facility] Last Admin: 08/23/16 10:53 Dose: 40 mg Prednisone (Deltasone -) 10 mg PO DAILY [facility] Last Admin: 08/23/16 10:53 Dose: 10 mg A/P 76 year old woman with PMhx of Autoimmune hepatitis (on Prednisone/Azothiprine) , GERD who presented with increased Abd and lower extremity swelling and found to have Ascities with FARHEEN with BUN/Cr of 77/1.8. #Acute Renal Failure in setting of Autoimmune Hepatitis and Ascities Urine studies consiset with pre-renal injury as seen with HRS Increase Albumin to 25g Q6h Start Octreotide 100, Midodrine 2.5mg TID to increse systemic and splanic vasoconstriction to help better perfuse the kidneys pt may need dialysis pt not responsive to medical management dose all meds for Cr Cl less then 15 avoid NSAIDs, IV contrast if possible #Autoimmune hepatitis on Prednisone Ct of the liver consistent with advanced Hepatocellular disease GI following #REVIEW TRAINER Maligancy f/u pathology Oncology following pt wishes to be [place] [facility] #DVT on Heparin gtt convert to Coumadin as per PMD Chris Ashley DO
--- NOTE | 2016-08-23 11:36 | PN ---
Progress Note, Physician Chief Complaint: Events noted Diagnosed with Peritoneal carcinomatosis Renal input noted with FARHEEN History of Present Illness: Patient was seen and examined. Awake and alert. Chart was reviewed Denies chest pain or shortness of breath - Current Medication List Current Medications: Active Medications Acetaminophen (Tylenol -) 650 mg PO Q8H PRN PRN Reason: PAIN Last Admin: 08/22/16 22:13 Dose: 650 mg Heparin Sodium (Porcine) (Heparin -) 5,000 unit IVPUSH PRN PRN Heparin Sodium (Porcine) (Heparin -) 1,000 unit IVPUSH PRN PRN Heparin Sodium/Dextrose (Heparin Infusion -) 500 mls @ 20 mls/hr IVPB TITR ASTRID ; 1,000 UNITS/HR PRN Reason: Protocol Last Titration: 08/23/16 10:54 Dose: 1,100 units/hr Metoprolol Tartrate (Lopressor -) 50 mg PO BID [facility] Last Admin: 08/23/16 10:53 Dose: 50 mg Pantoprazole Sodium (Protonix -) 40 mg PO DAILY [facility] Last Admin: 08/23/16 10:53 Dose: 40 mg Prednisone (Deltasone -) 10 mg PO DAILY [facility] Last Admin: 08/23/16 10:53 Dose: 10 mg - Objective Vital Signs: Vital Signs Temperature 97.9 F 08/23/16 06:00 Pulse Rate 78 08/23/16 06:00 Respiratory Rate 20 08/23/16 06:00 Blood Pressure 109/53 08/23/16 06:00 O2 Sat by Pulse Oximetry (%) 96 08/22/16 21:00 Neck: Yes: Supple Cardiovascular: Yes: Regular Rate and Rhythm, S1, S2 Respiratory: Yes: Diminished Gastrointestinal: Yes: Normal Bowel Sounds, Soft, Ascites. No: Tenderness Edema: Yes Edema: LLE: 2+, RLE: 2+ Labs: CBC, BMP 08/23/16 06:15 08/23/16 06:15 Assessment/Plan 1. 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 HTN/HCVD 3. Autoimmune hepatitis 4. Acute on chronic kidney injury and hyperkalemia 5. RLE DVT PLAN: 1. Recommended neoadjuvant chemotherapy by Foundry Helper-Onc. Family considering second opinion at [facility] - whether patient will be transferred or be seen as outpatient will be decided 2. Monitor renal function - renal input noted 3. Continue Lopressor 50 mg bid and consider HANS-I/ARB once renal function and hyperkalemia stabilizes 4. IV heparin drip and eventual oral anticoagulation to start 5. Prednisone taper with GI protection Further plans are to follow Juan C Santoyo MD
--- NOTE | 2016-08-23 13:12 | SPA.PREOP ---
- PRE-OP NOTE Dx: ovarian CA Planned Procedure: port a catheter placement Surgeon: Dr. Barrientos Last Vital Signs Temp Pulse Resp BP Pulse Ox 97.9 F 78 20 109/53 96 08/23/16 06:00 08/23/16 06:00 08/23/16 06:00 08/23/16 06:00 08/22/16 21:00 Lab Results WBC 22.9 K/mm3 (4.0-10.0) H 08/23/16 06:15 RBC 4.05 M/mm3 (3.60-5.2) 08/23/16 06:15 Hgb 12.0 GM/dL (10.7-15.3) 08/23/16 06:15 Hct 36.7 % (32.4-45.2) 08/23/16 06:15 MCV 90.5 fl (80-96) 08/23/16 06:15 MCHC 32.8 g/dl (32.0-36.0) 08/23/16 06:15 RDW 17.0 % (11.6-15.6) H 08/23/16 06:15 Plt Count 380 K/MM3 (134-434) 08/23/16 06:15 Sodium 133 mmol/L (136-145) L 08/23/16 06:15 Potassium 4.4 mmol/L (3.5-5.1) 08/23/16 06:15 Chloride 95 mmol/L (98-107) L 08/23/16 06:15 Carbon Dioxide 22 mmol/L (21-32) D 08/23/16 06:15 Anion Gap 16 (8-16) 08/23/16 06:15 BUN 112 mg/dL (7-18) H* 08/23/16 06:15 Creatinine 2.6 mg/dL (0.55-1.02) H 08/23/16 06:15 Random Glucose 204 mg/dL (74-106) H 08/23/16 06:15 Calcium 8.9 mg/dL (8.5-10.1) 08/23/16 06:15 INR 1.04 (0.82-1.09) 08/14/16 14:55 - ASSESSMENT/PLAN 1. Make NPO after midnight except po meds 2. GI/DVT PPX 3. Please clear the pt medically for the procedure 4. T&S 5. Hold IV heparin in the am Visit type - Case Type Case Type: ED Admission - Emergency Emergency Visit: Yes ED Registration Date: 08/12/16 Care time: The patient presented to the Emergency Department on the above date and was hospitalized for further evaluation of their emergent condition. - New patient This patient is new to me today: No - Critical Care Critical Care patient: No
[2016-08-23] MEDS: OCTREOTIDE ACETATE 100 MCG/1 ML SQ SCH ×2 (13:57→23:24)
[2016-08-23] MEDS: MIDODRINE HCL 2.5 MG TABLET PO SCH ×2 (14:12→17:07)
[2016-08-23] MEDS: HEPARIN INFUSION - 500 ML IVPB SCH (17:07)
[2016-08-24] MEDS ORDERED: PT OWN MED DRAWER 7, Y5N ONE ×2 (02:43→16:54)
[2016-08-24] MEDS: ALBUMIN HUMAN 25% 12.5 GM/50 ML VIAL IVPB SCH ×3 (03:15→19:56)
[2016-08-24] MEDS: OCTREOTIDE ACETATE 100 MCG/1 ML SQ SCH ×3 (06:01→22:01)
[2016-08-24 07:35] LABS: MCH 29.5 pg (25.7-33.7); MCHC 32.6 g/dl (32.0-36.0); MEAN CELL VOLUME 90.4 fl (80-96); MEAN PLT VOLUME 9.6 fl (7.5-11.1); PLATELET COUNT 446 K/MM3 (134-434); RDW 17.1 % (11.6-15.6); WHITE BLOOD COUNT 22.2 K/mm3 (4.0-10.0)
[2016-08-24 08:01] LABS: ALBUMIN 3.3 g/dl (3.4-5.0); CALCIUM 8.7 mg/dL (8.5-10.1); COCKROFT - GAULT 32.266; CREATININE 2.7 mg/dL (0.55-1.02); MAGNESIUM 2.5 mg/dL (1.8-2.4); PHOSPHOROUS 6.3 mg/dL (2.5-4.9)
[2016-08-24 09:39] LABS: ANISOCYTOSIS 1+; PLATELET ESTIMATE ADEQUATE (NORMAL)
[2016-08-24] MEDS ORDERED: LIDOCAINE HCL 1%, 10 MG/ML (20ML VIAL) ONE (10:02)
[2016-08-24] MEDS ORDERED: HEPARIN NA (PORCINE) 5,000 UNITS/ML 1ML VIAL ONE (10:02)
[2016-08-24] MEDS ORDERED: LIDOCAINE HCL/PF 2% SDV 5ML VIAL ONE (10:06)
[2016-08-24] MEDS ORDERED: PROPOFOL 20 ML ONE (10:06)
[2016-08-24] MEDS ORDERED: ceFAZolin SODIUM 1 GM VIAL ONE (10:06)
[2016-08-24] MEDS ORDERED: MIDAZOLAM HCL 2 MG/2 ML SINGLE DOSE VIAL ONE (10:06)
[2016-08-24] MEDS: PANTOPRAZOLE 40 MG TABLET (FP) PO SCH (10:12)
[2016-08-24] MEDS: predniSONE 20 MG TABLET (UD) PO SCH (10:12)
[2016-08-24] MEDS: METOPROLOL TARTRATE 50 MG TABLET (FP) PO SCH ×2 (10:12→22:01)
[2016-08-24] MEDS: MIDODRINE HCL 2.5 MG TABLET PO SCH ×3 (10:12→18:06)
[2016-08-24] MEDS ORDERED: ceFAZolin SODIUM 1 GM VIAL IVPB ONE (10:35)
[2016-08-24] MEDS ORDERED: LIDOCAINE HCL 1%, 10 MG/ML (50 mL VIAL) IJ ONE (10:40)
[2016-08-24] MEDS ORDERED: LACTATED RINGERS SOLUTION 1,000 ML IV SCH (10:45)
--- NOTE | 2016-08-24 11:06 | OP ---
Operative Note - Note: Operative Date: 08/24/16 Pre-Operative Diagnosis: Ovarian CA Operation: Insertion of portacath Post-Operative Diagnosis: Same as Pre-op Surgeon: Dayday Barrientos Anesthesia: Fractional Estimated Blood Loss (mls): 20 Operative Report Dictated: Yes
[2016-08-24] MEDS ORDERED: HEPARIN NA (PORCINE) 5,000 UNITS/ML 1ML VIAL IVPUSH PRN ×3 (11:08→16:07)
--- NOTE | 2016-08-24 13:44 | PN ---
Progress Note (short form) - Note Progress Note: Renal Follow up for FARHEEN Pt seen and examined in the recovery room s/p chemo port insertion no acute complaints denies sob, chest pain, abd pain Vital Signs Temperature 97.4 F L 08/24/16 13:32 Pulse Rate 93 H 08/24/16 13:32 Respiratory Rate 21 08/24/16 13:32 Blood Pressure 140/58 08/24/16 13:32 O2 Sat by Pulse Oximetry (%) 97 08/24/16 11:50 Intake & Output 08/21/16 08/22/16 08/23/16 08/24/16 23:59 23:59 23:59 23:59 Intake Total 926 1127 781 639 Output Total 20 Balance 926 1127 781 619 Weight 252 lb 4.8 oz 254 lb 9.6 oz 256 lb 8 oz 258 lb 4.8 oz Gen: NAD CVS: RRR, No M/R Lungs: CTA Abd: + Ascities Ext: 2+ edema in b/l LE CBC, BMP 08/24/16 06:30 08/24/16 06:30 Current Medications Acetaminophen (Tylenol -) 650 mg PO Q8H PRN PRN Reason: PAIN Fentanyl (Sublimaze Injection -) 25 mcg IVPUSH [id number] PRN PRN Reason: PAIN Stop: 08/27/16 10:40 Heparin Sodium (Porcine) (Heparin -) 1,000 unit IVPUSH PRN PRN PRN Reason: Heparin Heparin Sodium (Porcine) (Heparin -) 5,000 unit IVPUSH PRN PRN PRN Reason: Heparin Heparin Sodium/Dextrose (Heparin Infusion -) 500 mls @ 20 mls/hr IVPB TITR ASTR[facility] ; 1,000 UNITS/HR PRN Reason: Protocol Metoprolol Tartrate (Lopressor -) 50 mg PO BID [facility] Midodrine (Proamatine -) 2.5 mg PO TID-MID [facility] Octreotide Acetate (Sandostatin -) 100 mcg SQ TID [facility] Pantoprazole Sodium (Protonix -) 40 mg PO DAILY [facility] Prednisone (Deltasone -) 10 mg PO DAILY [facility] A/P 76 year old woman with PMhx of Autoimmune hepatitis (on Prednisone/Azothiprine) , GERD who presented with increased Abd and lower extremity swelling and found to have Ascities with FARHEEN with BUN/Cr of 77/1.8. #Acute Renal Failure in setting of Autoimmune Hepatitis and Ascities renal function stable today Urine studies consiset with pre-renal injury as seen with H[facility] Continue Albumin, octreotide and midodrine dose all meds for Cr Cl less then 15 avoid NSAIDs, IV contrast if possible #Autoimmune hepatitis on Prednisone Ct of the liver consistent with advanced Hepatocellular disease GI following #CPS TEAM LEAD Malignancy f/u pathology Oncology following pt wishes to be treated at [facility] [place] #DVT on Heparin gtt convert to Coumadin as per PMD Chris Ashley DO
[2016-08-24] MEDS: HEPARIN INFUSION - 500 ML IVPB SCH (16:46)
[2016-08-24] MEDS: ACETAMINOPHEN 325 MG TABLET (FP) PO PRN (17:02)
--- NOTE | 2016-08-24 17:56 | PN ---
Progress Note, Physician Chief Complaint: OOB to chair NAD VSS - Current Medication List Current Medications: Active Medications Acetaminophen (Tylenol -) 650 mg PO Q8H PRN PRN Reason: PAIN Last Admin: 08/24/16 17:02 Dose: 650 mg Fentanyl (Sublimaze Injection -) 25 mcg IVPUSH [id number] PRN PRN Reason: PAIN Stop: 08/27/16 10:40 Heparin Sodium (Porcine) (Heparin -) 1,000 unit IVPUSH PRN PRN PRN Reason: Heparin Heparin Sodium (Porcine) (Heparin -) 5,000 unit IVPUSH PRN PRN PRN Reason: Heparin Heparin Sodium/Dextrose (Heparin Infusion -) 500 mls @ 20 mls/hr IVPB TITR ASTRID ; 1,000 UNITS/HR PRN Reason: Protocol Last Admin: 08/24/16 16:46 Dose: 20 mls/hr Metoprolol Tartrate (Lopressor -) 50 mg PO BID [facility]STR[facility] Midodrine (Proamatine -) 2.5 mg PO TID-MID [facility] Last Admin: 08/24/16 17:03 Dose: 2.5 mg Octreotide Acetate (Sandostatin -) 100 mcg SQ TID [facility]STR[facility] Pantoprazole Sodium (Protonix -) 40 mg PO DAILY [facility]STR[facility] Prednisone (Deltasone -) 10 mg PO DAILY [facility] - Objective Vital Signs: Vital Signs Temperature 97.4 F L 08/24/16 13:32 Pulse Rate 93 H 08/24/16 13:32 Respiratory Rate 21 08/24/16 13:32 Blood Pressure 140/58 08/24/16 13:32 O2 Sat by Pulse Oximetry (%) 97 08/24/16 11:50 Constitutional: Yes: No Distress, Calm Eyes: Yes: Conjunctiva Clear HENT: Yes: Atraumatic Neck: Yes: Supple Cardiovascular: Yes: Regular Rate and Rhythm Respiratory: Yes: Regular, CTA Bilaterally Gastrointestinal: Yes: Soft, Ascites Musculoskeletal: No: Joint Stiffness, Joint Swelling Extremities: No: Cold, Cool Edema: Yes Integumentary: No: Rash, Venous Stasis Changes Neurological: Yes: WNL, Alert, Oriented ...Motor Strength: WNL Psychiatric: Yes: WNL, Alert, Oriented. No: Agitated, Suicidal Ideation Labs: CBC, BMP 08/24/16 06:30 08/24/16 06:30 INR, PTT INR 1.04 (0.82-1.09) 08/14/16 14:55 - ....Imaging Other: Report Reviewed Assessment/Plan 76 year old woman with PMhx of Autoimmune hepatitis (on Prednisone/Azothiprine) , HTN, OA, obesity, GERD who presented with increased Abd and lower extremity swelling, autoimmune hepatitis and liver cirrhosis on CT scan, CRF malignant Ascities mullerian origin Acute on CRF increasing BUN/CReat. for port a cath placement and ascites drainage then if stable will start coumadin pt said her son scheduled an maurilio for her at [facility] for next week in office ( [place] does not accept inpt transfer for solid tumors per onc) renal, heme onc, labs f/u d/w pt and staff
[2016-08-25] MEDS: ALBUMIN HUMAN 25% 12.5 GM/50 ML VIAL IVPB SCH ×2 (01:03→08:37)
[2016-08-25] MEDS: OCTREOTIDE ACETATE 100 MCG/1 ML SQ SCH ×3 (06:26→21:46)
[2016-08-25] MEDS: HEPARIN INFUSION - 500 ML IVPB SCH ×2 (06:40→16:44)
--- NOTE | 2016-08-25 08:09 | OP ---
DATE OF OPERATION: 08/24/2016 PREOPERATIVE DIAGNOSIS: Ovarian cancer. POSTOPERATIVE DIAGNOSIS: Ovarian cancer. PROCEDURE: Insertion of port-a-cath. SURGEON: Dayday Xavier MD ANESTHESIA: Fractional. BLOOD LOSS: 20 mL. INDICATIONS: The patient is a 76-year-old female with ovarian cancer with metastases who needs initiation of chemotherapy. Vascular surgery was consulted for port-a-cath placement. Patient was consented for the procedure understanding all risks, benefits, and alternatives. She was then brought to the operating room. DESCRIPTION OF PROCEDURE: Once in the operating room, she was placed on the operating table in the supine manner. The area of the right neck and chest was prepped and draped in a sterile surgical manner. We then went ahead and under ultrasound guidance visualized the right internal jugular vein, and 10 mL of 1% lidocaine was injected over the vein. We then took our micropuncture needle and punctured the right internal jugular vein under ultrasound guidance, and a micropuncture wire was inserted and a micropuncture sheath was inserted. Then, a 0.035 floppy guidewire was inserted. We then went ahead and went to the anterior chest wall and 15 mL Lidocaine 1% were injected there. We then made a 6-cm incision using a 15 blade. Bovie electrocautery was used to control hemostasis, and using Bovie electrocautery, we were able to create a pouch for our port-a-cath. We then took an 11 blade and made a 1-cm incision at the puncture site. We then tunneled the port-a-cath up to the puncture site and cut the port-a-cath to size. We then placed our breakaway sheath over the guidewire into the vein under fluoroscopy, and the cannula and guidewire removed. Catheter was placed inside the sheath, and the sheath was broken away, and the catheter was placed inside the vein. Neck of the catheter was nice and smooth. Tip of the catheter was located outside the right atrium. We then estefani back on the port using heparinized saline, and there was good flow. Then, 2000 units of IV heparin were administered. We then went ahead and used 3-0 silk, and catheter was anchored to the subcutaneous tissue. Then, 3-0 Vicryl was used, and the subcutaneous tissue was approximated in an interrupted manner. Skin was closed with 4-0 Biosyn in a subcuticular running fashion. The puncture site was also closed with 4-0 Biosyn with 1 simple stitch. Area was wet and dried, and Steri-Strips were placed, 4x4 and Tegaderm were placed. The patient tolerated the procedure with no complications. Patient transferred to PACU in stable condition. DAYDAY XAVIER DO [id number]
[2016-08-25] MEDS: predniSONE 10 MG TABLET (UD) PO SCH (10:10)
[2016-08-25] MEDS: METOPROLOL TARTRATE 50 MG TABLET (FP) PO SCH ×2 (10:10→21:46)
[2016-08-25] MEDS: MIDODRINE HCL 2.5 MG TABLET PO SCH ×3 (10:11→18:35)
[2016-08-25] MEDS: PANTOPRAZOLE 40 MG TABLET (FP) PO SCH (10:11)
[2016-08-25 11:10] LABS: ALBUMIN 3.3 g/dl (3.4-5.0); BILIRUBIN,TOTAL 0.7 mg/dL (0.2-1.0); CALCIUM 8.2 mg/dL (8.5-10.1); COCKROFT - GAULT 29.9285; CREATININE 2.8 mg/dL (0.55-1.02); TOT PROT 5.6 g/dl (6.4-8.2)
--- NOTE | 2016-08-25 11:14 | PN ---
Progress Note (short form) - Note Progress Note: ANESTHESIOLOGY POST-OP CHECK 76F s/p portacath insertion under MAC/sedation anesthesia, POD #1. No acute complaints. Denies pain, N/V. Tolerating PO. Vital Signs Temperature 97.9 F 08/25/16 10:00 Pulse Rate 83 08/25/16 10:00 Respiratory Rate 20 08/25/16 10:00 Blood Pressure 126/58 08/25/16 10:00 O2 Sat by Pulse Oximetry (%) 94 L 08/24/16 21:00 Active Medications Acetaminophen (Tylenol -) 650 mg PO Q8H PRN PRN Reason: PAIN Last Admin: 08/24/16 17:02 Dose: 650 mg Fentanyl (Sublimaze Injection -) 25 mcg IVPUSH [id number] PRN PRN Reason: PAIN Stop: 08/27/16 10:40 Heparin Sodium (Porcine) (Heparin -) 1,000 unit IVPUSH PRN PRN PRN Reason: Heparin Heparin Sodium (Porcine) (Heparin -) 5,000 unit IVPUSH PRN PRN PRN Reason: Heparin Last Admin: 08/25/16 00:09 Dose: 5,000 unit Heparin Sodium/Dextrose (Heparin Infusion -) 500 mls @ 20 mls/hr IVPB TITR ASTRID ; 1,000 UNITS/HR PRN Reason: Protocol Last Titration: 08/25/16 10:15 Dose: 1,100 units/hr Metoprolol Tartrate (Lopressor -) 50 mg PO BID [facility] Last Admin: 08/25/16 10:10 Dose: 50 mg Midodrine (Proamatine -) 2.5 mg PO TID-MID [facility] Last Admin: 08/25/16 10:11 Dose: 2.5 mg Octreotide Acetate (Sandostatin -) 100 mcg SQ TID [facility] Last Admin: 08/25/16 06:26 Dose: 100 mcg Pantoprazole Sodium (Protonix -) 40 mg PO DAILY [facility] Last Admin: 08/25/16 10:11 Dose: 40 mg Prednisone (Deltasone -) 10 mg PO DAILY [facility] Last Admin: 08/25/16 10:10 Dose: 10 mg Gen: Awake, alert No apparent anesthesia complications. Pain well controlled. Continue management as per primary team.
--- NOTE | 2016-08-25 11:45 | PN ---
Progress Note, Physician Chief Complaint: OOB to chair s/p ascites tap yesterday, removed 4.8 L s/p R port cath placed yesterday no pain no bleed - Current Medication List Current Medications: Active Medications Acetaminophen (Tylenol -) 650 mg PO Q8H PRN PRN Reason: PAIN Last Admin: 08/24/16 17:02 Dose: 650 mg Fentanyl (Sublimaze Injection -) 25 mcg IVPUSH [id number] PRN PRN Reason: PAIN Stop: 08/27/16 10:40 Heparin Sodium (Porcine) (Heparin -) 1,000 unit IVPUSH PRN PRN PRN Reason: Heparin Heparin Sodium (Porcine) (Heparin -) 5,000 unit IVPUSH PRN PRN PRN Reason: Heparin Last Admin: 08/25/16 00:09 Dose: 5,000 unit Heparin Sodium/Dextrose (Heparin Infusion -) 500 mls @ 20 mls/hr IVPB TITR ASTRID ; 1,000 UNITS/HR PRN Reason: Protocol Last Titration: 08/25/16 10:15 Dose: 1,100 units/hr Metoprolol Tartrate (Lopressor -) 50 mg PO BID [facility] Last Admin: 08/25/16 10:10 Dose: 50 mg Midodrine (Proamatine -) 2.5 mg PO TID-MID [facility] Last Admin: 08/25/16 10:11 Dose: 2.5 mg Octreotide Acetate (Sandostatin -) 100 mcg SQ TID [facility] Last Admin: 08/25/16 06:26 Dose: 100 mcg Pantoprazole Sodium (Protonix -) 40 mg PO DAILY [facility] Last Admin: 08/25/16 10:11 Dose: 40 mg Prednisone (Deltasone -) 10 mg PO DAILY [facility] Last Admin: 08/25/16 10:10 Dose: 10 mg - Objective Vital Signs: Vital Signs Temperature 97.9 F 08/25/16 10:00 Pulse Rate 83 08/25/16 10:00 Respiratory Rate 20 08/25/16 10:00 Blood Pressure 126/58 08/25/16 10:00 O2 Sat by Pulse Oximetry (%) 94 L 08/24/16 21:00 Constitutional: Yes: No Distress, Calm Eyes: Yes: Conjunctiva Clear HENT: Yes: Atraumatic Neck: Yes: Supple Cardiovascular: Yes: Regular Rate and Rhythm Respiratory: Yes: CTA Bilaterally Gastrointestinal: Yes: Soft, Ascites. No: Tenderness Genitourinary: No: CVA Tenderness - Left, CVA Tenderness - Right Musculoskeletal: No: Joint Stiffness, Joint Swelling Extremities: No: Cold, Cool Edema: Yes Integumentary: No: Rash, Venous Stasis Changes Neurological: Yes: WNL, Alert, Oriented ...Motor Strength: WNL Psychiatric: Yes: WNL, Alert, Oriented. No: Agitated, Suicidal Ideation Labs: CBC, BMP 08/24/16 06:30 08/25/16 08:00 INR, PTT INR 1.04 (0.82-1.09) 08/14/16 14:55 - ....Imaging Other: Report Reviewed Assessment/Plan 76 year old woman with PMhx of Autoimmune hepatitis (on Prednisone/Azothiprine) , HTN, OA, obesity, GERD who presented with increased Abd and lower extremity swelling, autoimmune hepatitis and liver cirrhosis on CT scan, CRF malignant Ascities mullerian origin Acute on CRF increasing BUN/CReat. s/p port a cath placement and ascites drainage d/w renal and vascular sx ok to start coumadin, no need for dyalsis or CVVH at this point pt said her son scheduled an maurilio for her at [facility] for next week in office ( [place] does not accept inpt transfer for solid tumors per onc); will DC her home if stable when INR therapeutic; pt should be seen in [place] and have labs checked the next day after DC from , d/w pt to coordinate her maurilio with the above plan, she said she will renal, heme onc, labs f/u d/w pt and staff
--- NOTE | 2016-08-25 12:07 | PN ---
Progress Note (short form) - Note Progress Note: Renal Follow up for FARHEEN Pt seen and examined at the bedside reports abd pain, no BM this am, no distension is passing gas no N/V, confusion, lethargy, metallic taste in the mouth Vital Signs Temperature 97.9 F 08/25/16 10:00 Pulse Rate 83 08/25/16 10:00 Respiratory Rate 20 08/25/16 10:00 Blood Pressure 126/58 08/25/16 10:00 O2 Sat by Pulse Oximetry (%) 94 L 08/24/16 21:00 Intake & Output 08/22/16 08/23/16 08/24/16 08/25/16 23:59 23:59 23:59 23:59 Intake Total 1127 781 779 464 Output Total 20 Balance 1127 781 759 464 Weight 254 lb 9.6 oz 256 lb 8 oz 258 lb 4.8 oz 248 lb 6.4 oz Gen: NAD CVS: RRR, No M/R Lungs: CTA Abd: + Ascities Ext: 2+ edema in b/l LE CBC, BMP 08/24/16 06:30 08/25/16 08:00 Current Medications Acetaminophen (Tylenol -) 650 mg PO Q8H PRN PRN Reason: PAIN Last Admin: 08/24/16 17:02 Dose: 650 mg Fentanyl (Sublimaze Injection -) 25 mcg IVPUSH [id number] PRN PRN Reason: PAIN Stop: 08/27/16 10:40 Heparin Sodium (Porcine) (Heparin -) 1,000 unit IVPUSH PRN PRN PRN Reason: Heparin Heparin Sodium (Porcine) (Heparin -) 5,000 unit IVPUSH PRN PRN PRN Reason: Heparin Last Admin: 08/25/16 00:09 Dose: 5,000 unit Heparin Sodium/Dextrose (Heparin Infusion -) 500 mls @ 20 mls/hr IVPB TITR ASTRID ; 1,000 UNITS/HR PRN Reason: Protocol Last Titration: 08/25/16 10:15 Dose: 1,100 units/hr Metoprolol Tartrate (Lopressor -) 50 mg PO BID [facility] Last Admin: 08/25/16 10:10 Dose: 50 mg Midodrine (Proamatine -) 2.5 mg PO TID-MID [facility] Last Admin: 08/25/16 10:11 Dose: 2.5 mg Octreotide Acetate (Sandostatin -) 100 mcg SQ TID [facility] Last Admin: 08/25/16 06:26 Dose: 100 mcg Pantoprazole Sodium (Protonix -) 40 mg PO DAILY [facility] Last Admin: 08/25/16 10:11 Dose: 40 mg Prednisone (Deltasone -) 10 mg PO DAILY [facility] Last Admin: 08/25/16 10:10 Dose: 10 mg A/P 76 year old woman with PMhx of Autoimmune hepatitis (on Prednisone/Azothiprine) , GERD who presented with increased Abd and lower extremity swelling and found to have Ascities with FARHEEN with BUN/Cr of 77/1.8. 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 Renal function has been stable the last several days however likely that the kidney function will worsen over time w/o intervention for the liver function no other source of renal insult identified (no nephrotoxic meds, no HANS/ARB, no contrast exposure, no hypotension) No acute indication for renal replacement therapy at this time (no uremia despite high bun) at this time will need close monitoring of renal function as inpatient and as outpatient Above was discussed with the patient and she expressed understanding continue the octreotide and midodrine while pt is inpatient IV Albumin if any acute worsening in renal function #Metabolic acidosis start sodium bicarb 650mg Daily #Autoimmune hepatitis on Prednisone Ct of the liver consistent with advanced Hepatocellular disease #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
[2016-08-25] MEDS: SODIUM BICARBONATE 650 MG TABLET PO SCH (13:04)
--- NOTE | 2016-08-25 13:13 | PN ---
Progress Note, Physician History of Present Illness: Ascites reaccumulating with consequent dyspnea. Peritoneal fluid cytology is significant for peritoneal carcinomatosis, neoadjuvant chemotherapy recommended by bottoming room inspector-onc. Ca-125 markedly elevated, s/p portacath placement. - Current Medication List Current Medications: Active Medications Acetaminophen (Tylenol -) 650 mg PO Q8H PRN PRN Reason: PAIN Last Admin: 08/24/16 17:02 Dose: 650 mg Fentanyl (Sublimaze Injection -) 25 mcg IVPUSH [id number] PRN PRN Reason: PAIN Stop: 08/27/16 10:40 Heparin Sodium (Porcine) (Heparin -) 1,000 unit IVPUSH PRN PRN PRN Reason: Heparin Heparin Sodium (Porcine) (Heparin -) 5,000 unit IVPUSH PRN PRN PRN Reason: Heparin Last Admin: 08/25/16 00:09 Dose: 5,000 unit Heparin Sodium/Dextrose (Heparin Infusion -) 500 mls @ 20 mls/hr IVPB TITR ASTRID ; 1,000 UNITS/HR PRN Reason: Protocol Last Titration: 08/25/16 10:15 Dose: 1,100 units/hr Metoprolol Tartrate (Lopressor -) 50 mg PO BID [facility] Last Admin: 08/25/16 10:10 Dose: 50 mg Midodrine (Proamatine -) 2.5 mg PO TID-MID [facility] Last Admin: 08/25/16 10:11 Dose: 2.5 mg Octreotide Acetate (Sandostatin -) 100 mcg SQ TID [facility] Last Admin: 08/25/16 06:26 Dose: 100 mcg Pantoprazole Sodium (Protonix -) 40 mg PO DAILY [facility] Last Admin: 08/25/16 10:11 Dose: 40 mg Prednisone (Deltasone -) 10 mg PO DAILY [facility] Last Admin: 08/25/16 10:10 Dose: 10 mg Sodium Bicarbonate (Sodium Bicarbonate -) 650 mg PO DAILY [facility] Last Admin: 08/25/16 13:04 Dose: 650 mg - Objective Vital Signs: Vital Signs Temperature 97.9 F 08/25/16 10:00 Pulse Rate 83 08/25/16 10:00 Respiratory Rate 20 08/25/16 10:00 Blood Pressure 126/58 08/25/16 10:00 O2 Sat by Pulse Oximetry (%) 94 L 08/24/16 21:00 Constitutional: Yes: No Distress, Calm Neck: Yes: Supple Cardiovascular: Yes: Regular Rate and Rhythm Respiratory: Yes: Regular, Diminished Gastrointestinal: Yes: Normal Bowel Sounds, Distention Edema: Yes Edema: LLE: 2+, RLE: 2+ Labs: CBC, BMP 08/24/16 06:30 08/25/16 08:00 INR, PTT INR 1.04 (0.82-1.09) 08/14/16 14:55 Problem List - Problems (1) Ascites Code(s): R18.8 - OTHER ASCITES Qualifiers: Qualified Code(s): R18.8 - Other ascites (2) Acute diastolic heart failure Code(s): I50.31 - ACUTE DIASTOLIC (CONGESTIVE) HEART FAILURE (3) Hypertensive cardiomyopathy Code(s): I11.9 - HYPERTENSIVE HEART DISEASE WITHOUT HEART FAILURE I42.9 - CARDIOMYOPATHY, UNSPECIFIED Qualifiers: Qualified Code(s): I11.0 - Hypertensive heart disease with heart failure (4) Autoimmune hepatitis Code(s): K75.4 - AUTOIMMUNE HEPATITIS (5) Peripheral edema Code(s): R60.9 - EDEMA, UNSPECIFIED (6) Acute kidney injury Code(s): N17.9 - ACUTE KIDNEY FAILURE, UNSPECIFIED (7) Leukocytosis Code(s): D72.829 - ELEVATED WHITE BLOOD CELL COUNT, UNSPECIFIED Qualifiers: Qualified Code(s): D72.829 - Elevated white blood cell count, unspecified (8) Deep venous embolism and thrombosis of right lower extremity Code(s): I82.401 - ACUTE EMBOLISM AND THOMBOS UNSP DEEP VEINS OF R LOW EXTREM Assessment/Plan 1. 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 HTN/HCVD 3. Autoimmune hepatitis 4. Acute on chronic kidney injury and hyperkalemia 5. RLE DVT PLAN: 1. Recommended neoadjuvant chemotherapy by Truck Driver Teamster-Onc. Family considering second opinion at [facility] - likely to be seen as outpatient 2. Monitor renal function - renal input noted 3. Continue Lopressor 50 mg bid and consider HANS-I/ARB once renal function and hyperkalemia stabilizes 4. IV heparin drip and eventual oral anticoagulation to start 5. Prednisone taper with GI protection
[2016-08-25] MEDS: ACETAMINOPHEN 325 MG TABLET (FP) PO PRN (16:47)
[2016-08-25] MEDS ORDERED: WARFARIN NA 7.5 MG TABLET (FP) PO ONE (20:02)
[2016-08-26] MEDS: OCTREOTIDE ACETATE 100 MCG/1 ML SQ SCH ×3 (05:07→22:11)
--- NOTE | 2016-08-26 08:32 | PN ---
Progress Note, Physician Chief Complaint: walked OOB no SOB no abdominal pain - Current Medication List Current Medications: Active Medications Acetaminophen (Tylenol -) 650 mg PO Q8H PRN PRN Reason: PAIN Last Admin: 08/25/16 16:47 Dose: 650 mg Heparin Sodium (Porcine) (Heparin -) 1,000 unit IVPUSH PRN PRN PRN Reason: Heparin Heparin Sodium (Porcine) (Heparin -) 5,000 unit IVPUSH PRN PRN PRN Reason: Heparin Last Admin: 08/25/16 00:09 Dose: 5,000 unit Heparin Sodium/Dextrose (Heparin Infusion -) 500 mls @ 20 mls/hr IVPB TITR ASTRID ; 1,000 UNITS/HR PRN Reason: Protocol Last Admin: 08/25/16 16:44 Dose: Not Given Metoprolol Tartrate (Lopressor -) 50 mg PO BID [facility] Last Admin: 08/25/16 21:46 Dose: 50 mg Midodrine (Proamatine -) 2.5 mg PO TID-MID [facility] Last Admin: 08/25/16 18:35 Dose: 2.5 mg Octreotide Acetate (Sandostatin -) 100 mcg SQ TID [facility] Last Admin: 08/26/16 05:07 Dose: 100 mcg Pantoprazole Sodium (Protonix -) 40 mg PO DAILY [facility] Last Admin: 08/25/16 10:11 Dose: 40 mg Prednisone (Deltasone -) 10 mg PO DAILY [facility] Last Admin: 08/25/16 10:10 Dose: 10 mg Sodium Bicarbonate (Sodium Bicarbonate -) 650 mg PO DAILY [facility] Last Admin: 08/25/16 13:04 Dose: 650 mg - Objective Vital Signs: Vital Signs Temperature 98.0 F 08/26/16 06:00 Pulse Rate 90 08/26/16 06:00 Respiratory Rate 18 08/26/16 06:00 Blood Pressure 124/47 08/26/16 06:00 O2 Sat by Pulse Oximetry (%) 96 08/25/16 22:00 Constitutional: Yes: No Distress, Calm Eyes: Yes: Conjunctiva Clear HENT: Yes: Atraumatic Neck: Yes: Supple Cardiovascular: Yes: Regular Rate and Rhythm Respiratory: Yes: CTA Bilaterally Gastrointestinal: Yes: Soft, Ascites Musculoskeletal: No: Joint Stiffness, Joint Swelling Extremities: No: Cold, Cool Edema: Yes Integumentary: No: Rash, Venous Stasis Changes Neurological: Yes: WNL, Alert, Oriented ...Motor Strength: WNL Psychiatric: Yes: WNL, Alert, Oriented. No: Agitated, Suicidal Ideation Labs: CBC, BMP 08/24/16 06:30 08/25/16 08:00 INR, PTT INR 1.04 (0.82-1.09) 08/14/16 14:55 - ....Imaging Other: Report Reviewed Assessment/Plan 76 year old woman with PMhx of Autoimmune hepatitis (on Prednisone/Azothiprine) , HTN, OA, obesity, GERD who presented with increased Abd and lower extremity swelling, autoimmune hepatitis and liver cirrhosis on CT scan, CRF malignant Ascities mullerian origin Acute on CRF increasing BUN/CReat. s/p port a cath placement and ascites drainage started on coumadin, f/u INR renal, heme onc, labs f/u d/w pt and staff
[2016-08-26 09:17] LABS: BASOPHIL 0.4 % (0-2.0); EOSINOPHIL 0.1 % (0-4.5); MCH 29.5 pg (25.7-33.7); MCHC 32.1 g/dl (32.0-36.0); MEAN CELL VOLUME 91.9 fl (80-96); MEAN PLT VOLUME 9.3 fl (7.5-11.1); PLATELET COUNT 386 K/MM3 (134-434); RDW 17.5 % (11.6-15.6); WHITE BLOOD COUNT 23.2 K/mm3 (4.0-10.0)
[2016-08-26] MEDS: HEPARIN INFUSION - 500 ML IVPB SCH ×2 (09:20→17:42)
[2016-08-26 09:32] LABS: ALBUMIN 2.9 g/dl (3.4-5.0); BILIRUBIN,TOTAL 0.9 mg/dL (0.2-1.0); CALCIUM 8.4 mg/dL (8.5-10.1); COCKROFT - GAULT 31.11; CREATININE 2.7 mg/dL (0.55-1.02); MAGNESIUM 2.5 mg/dL (1.8-2.4); PHOSPHOROUS 5.8 mg/dL (2.5-4.9); TOT PROT 5.8 g/dl (6.4-8.2)
[2016-08-26] MEDS: METOPROLOL TARTRATE 50 MG TABLET (FP) PO SCH ×2 (09:42→22:11)
[2016-08-26] MEDS: PANTOPRAZOLE 40 MG TABLET (FP) PO SCH (09:43)
[2016-08-26] MEDS: MIDODRINE HCL 2.5 MG TABLET PO SCH ×3 (09:43→17:43)
[2016-08-26] MEDS: SODIUM BICARBONATE 650 MG TABLET PO SCH (09:43)
[2016-08-26] MEDS: predniSONE 10 MG TABLET (UD) PO SCH (09:43)
[2016-08-26 09:46] LABS: INR 1.09 (0.82-1.09)
[2016-08-26] MEDS ORDERED: PT OWN MED DRAWER 7, Y5N ONE (13:45)
--- NOTE | 2016-08-26 15:19 | PN ---
Progress Note, Physician Chief Complaint: Patient with autoimmune Hepatitis, On IV Heparin for DVT. Malignant ascites Acute Kidney Injury, with profound Pre - Current Medication List Current Medications: Active Medications Acetaminophen (Tylenol -) 650 mg PO Q8H PRN PRN Reason: PAIN Last Admin: 08/25/16 16:47 Dose: 650 mg Heparin Sodium (Porcine) (Heparin -) 1,000 unit IVPUSH PRN PRN PRN Reason: Heparin Heparin Sodium (Porcine) (Heparin -) 5,000 unit IVPUSH PRN PRN PRN Reason: Heparin Last Admin: 08/25/16 00:09 Dose: 5,000 unit Heparin Sodium/Dextrose (Heparin Infusion -) 500 mls @ 20 mls/hr IVPB TITR [facility]STRID ; 1,000 UNITS/HR PRN Reason: Protocol Last Admin: 08/26/16 09:20 Dose: 22 mls/hr Metoprolol Tartrate (Lopressor -) 50 mg PO BID [facility] Last Admin: 08/26/16 09:42 Dose: 50 mg Midodrine (Proamatine -) 2.5 mg PO TID-MID [facility] Last Admin: 08/26/16 13:56 Dose: 2.5 mg Octreotide Acetate (Sandostatin -) 100 mcg SQ TID [facility] Last Admin: 08/26/16 13:56 Dose: 100 mcg Pantoprazole Sodium (Protonix -) 40 mg PO DAILY [facility] Last Admin: 08/26/16 09:43 Dose: 40 mg Prednisone (Deltasone -) 10 mg PO DAILY [facility] Last Admin: 08/26/16 09:43 Dose: 10 mg Sodium Bicarbonate (Sodium Bicarbonate -) 650 mg PO DAILY [facility] Last Admin: 08/26/16 09:43 Dose: 650 mg - Objective Vital Signs: Vital Signs Temperature 98 F 08/26/16 14:05 Pulse Rate 74 08/26/16 14:05 Respiratory Rate 18 08/26/16 14:05 Blood Pressure 118/50 08/26/16 14:05 O2 Sat by Pulse Oximetry (%) 91 L 08/26/16 09:44 Constitutional: Yes: Anxious Eyes: Yes: WNL HENT: Yes: Atraumatic Neck: Yes: Supple Cardiovascular: Yes: Regular Rate and Rhythm, S1, S2 Respiratory: Yes: Regular, CTA Bilaterally Gastrointestinal: Yes: Normal Bowel Sounds, Ascites, Tenderness Musculoskeletal: Yes: Back Pain Labs: CBC, BMP 08/26/16 08:00 08/26/16 08:00 INR, PTT INR 1.09 (0.82-1.09) 08/26/16 08:00 Problem List - Problems (1) Acute diastolic heart failure Code(s): I50.31 - ACUTE DIASTOLIC (CONGESTIVE) HEART FAILURE (2) Acute kidney injury Code(s): N17.9 - ACUTE KIDNEY FAILURE, UNSPECIFIED (3) Ascites Code(s): R18.8 - OTHER ASCITES Qualifiers: Qualified Code(s): R18.8 - Other ascites (4) Autoimmune hepatitis Code(s): K75.4 - AUTOIMMUNE HEPATITIS (5) CHF (congestive heart failure) Code(s): I50.9 - HEART FAILURE, UNSPECIFIED Qualifiers: Qualified Code(s): I50.9 - Heart failure, unspecified (6) Deep venous embolism and thrombosis of right lower extremity Code(s): I82.401 - ACUTE EMBOLISM AND THOMBOS UNSP DEEP VEINS OF R LOW EXTREM (7) Hyperkalemia Code(s): E87.5 - HYPERKALEMIA Assessment/Plan 76 y/o female with autoimmune Hepatitis... DVT- On IV Heparin Acute Kidney Injury. Some degree of azotemia is Steroid dependent. Maintains fair amounts of urine. Scheduled to start Chemo Rx. Discussed with dr. mera. The plan is to start Chemo and then have the eval at [facility] as outpatient. If the renal frunctions worsen, may require dialysis. Cherise Ovalle MD
--- NOTE | 2016-08-26 15:19 | PN ---
Progress Note (short form) - Note Progress Note: patient seen and exmined feels like she is filling up again Last Vital Signs Temp Pulse Resp BP Pulse Ox 98 F 74 18 118/50 91 L 08/26/16 14:05 08/26/16 14:05 08/26/16 14:05 08/26/16 14:05 08/26/16 09:44 Neck: Supple Nodes: Without adenopathy Cor: RSR, No murmurs, No gallops Lungs: Clear to P&A Abd: Soft, Normal bowel sounds, ascites ++ Ext:2+ edema b/l Abnormal Lab Results 08/26/16 08/26/16 08/26/16 08:00 08:00 08:00 WBC 23.2 H RDW 17.5 H Neutrophils % 89.0 H Lymphocytes % 4.9 L D PTT (Actin FS) 54.0 H D Sodium 134 L Chloride 97 L BUN 120 H* Creatinine 2.7 H Random Glucose 222 H Calcium 8.4 L Phosphorus 5.8 H Magnesium 2.5 H AST 53 H Total Protein 5.8 L Albumin 2.9 L Active Medications Generic Name Dose Route Start Last Admin Trade Name Freq PRN Reason Stop Dose Admin Acetaminophen 650 mg 08/24/16 11:09 08/25/16 16:47 Tylenol - PO 650 mg Q8H PRN Administration PAIN Heparin Sodium (Porcine) 1,000 unit 08/24/16 11:08 Heparin - IVPUSH PRN PRN Heparin Heparin Sodium (Porcine) 5,000 unit 08/24/16 11:08 08/25/16 00:09 Heparin - IVPUSH 5,000 unit PRN PRN Administration Heparin Heparin Sodium/Dextrose 500 mls @ 20 mls/hr 08/24/16 16:15 08/26/16 09:20 Heparin Infusion - IVPB 22 mls/hr TITR ASTRID Administration Protocol 1,000 UNITS/HR Metoprolol Tartrate 50 mg 08/24/16 22:00 08/26/16 09:42 Lopressor - PO 50 mg BID [facility] Administration Midodrine 2.5 mg 08/24/16 14:00 08/26/16 13:56 Proamatine - PO 2.5 mg TID-MID [facility] Administration Octreotide Acetate 100 mcg 08/24/16 14:00 08/26/16 13:56 Sandostatin - SQ 100 mcg TID [facility] Administration Pantoprazole Sodium 40 mg 08/25/16 10:00 08/26/16 09:43 Protonix - PO 40 mg DAILY [facility] Administration Prednisone 10 mg 08/25/16 10:00 08/26/16 09:43 Deltasone - PO 10 mg DAILY [facility] Administration Sodium Bicarbonate 650 mg 08/25/16 12:15 08/26/16 09:43 Sodium Bicarbonate - PO 650 mg DAILY [facility] Administration Warfarin Sodium 10 mg 08/26/16 18:00 Coumadin - PO DAILY@1800 [facility] A/P 76 y/o patient with autoimmune hepatitis, cirrhosis, dvt rle, presenting with ascites ascitic fluid + for high grade serous carcinoma ca125 pending PAtient with acute renal failure--will hold diuretics will discuss with renal team awaiting comfort station supervisor-onc consult will need repeat paracentesis --may need to hold heparin PAtinet is very hypercoagulable from malignancy and filter in the setting may be a nidus for clot. But if unable to anticoaglae will need ivc filter. will discuss with vascular. [place] choice of a/c will be lovenox but given ongoing renal insufficiency will need to consider bridging to coumadin. possible port placement early next week patient wants to consider 2nd opinion at [facility] [place]--family to pursue. discussed at length the diagnosis of cirrhosis, renal failure, hypercoagulable state, advanced malignancy. discussed that chemotherapy would be high risk given her hepatic/renal function.Dsicussed toxicities including sepsis, further organ damage.multiorgan failuee. Discussed that palliative care is a reasonable options asell. PAtient still undecided Bridging heparin to coumadin and may need to overlap therapeutic INR by 24 - 48hrs. ?? peritoneal catheter
--- NOTE | 2016-08-26 15:26 | PN ---
Progress Note, Physician History of Present Illness: Ascites reaccumulating with consequent dyspnea. Peritoneal fluid cytology is significant for peritoneal carcinomatosis, neoadjuvant chemotherapy recommended by sql manager-onc. Ca-125 markedly elevated, s/p portacath placement. - Current Medication List Current Medications: Active Medications Acetaminophen (Tylenol -) 650 mg PO Q8H PRN PRN Reason: PAIN Last Admin: 08/25/16 16:47 Dose: 650 mg Heparin Sodium (Porcine) (Heparin -) 1,000 unit IVPUSH PRN PRN PRN Reason: Heparin Heparin Sodium (Porcine) (Heparin -) 5,000 unit IVPUSH PRN PRN PRN Reason: Heparin Last Admin: 08/25/16 00:09 Dose: 5,000 unit Heparin Sodium/Dextrose (Heparin Infusion -) 500 mls @ 20 mls/hr IVPB TITR ASTRID ; 1,000 UNITS/HR PRN Reason: Protocol Last Admin: 08/26/16 09:20 Dose: 22 mls/hr Metoprolol Tartrate (Lopressor -) 50 mg PO BID [facility] Last Admin: 08/26/16 09:42 Dose: 50 mg Midodrine (Proamatine -) 2.5 mg PO TID-MID [facility] Last Admin: 08/26/16 13:56 Dose: 2.5 mg Octreotide Acetate (Sandostatin -) 100 mcg SQ TID [facility] Last Admin: 08/26/16 13:56 Dose: 100 mcg Pantoprazole Sodium (Protonix -) 40 mg PO DAILY [facility] Last Admin: 08/26/16 09:43 Dose: 40 mg Prednisone (Deltasone -) 10 mg PO DAILY [facility] Last Admin: 08/26/16 09:43 Dose: 10 mg Sodium Bicarbonate (Sodium Bicarbonate -) 650 mg PO DAILY [facility] Last Admin: 08/26/16 09:43 Dose: 650 mg - Objective Vital Signs: Vital Signs Temperature 98 F 08/26/16 14:05 Pulse Rate 74 08/26/16 14:05 Respiratory Rate 18 08/26/16 14:05 Blood Pressure 118/50 08/26/16 14:05 O2 Sat by Pulse Oximetry (%) 91 L 08/26/16 09:44 Constitutional: Yes: No Distress, Calm Neck: Yes: Supple Cardiovascular: Yes: Regular Rate and Rhythm Respiratory: Yes: Regular, Diminished Gastrointestinal: Yes: Distention Edema: Yes Edema: LLE: 3+, RLE: 3+ Labs: CBC, BMP 08/26/16 08:00 08/26/16 08:00 INR, PTT INR 1.09 (0.82-1.09) 08/26/16 08:00 Problem List - Problems (1) Ascites Code(s): R18.8 - OTHER ASCITES Qualifiers: Qualified Code(s): R18.8 - Other ascites (2) Acute diastolic heart failure Code(s): I50.31 - ACUTE DIASTOLIC (CONGESTIVE) HEART FAILURE (3) Hypertensive cardiomyopathy Code(s): I11.9 - HYPERTENSIVE HEART DISEASE WITHOUT HEART FAILURE I42.9 - CARDIOMYOPATHY, UNSPECIFIED Qualifiers: Qualified Code(s): I11.0 - Hypertensive heart disease with heart failure (4) Autoimmune hepatitis Code(s): K75.4 - AUTOIMMUNE HEPATITIS (5) Peripheral edema Code(s): R60.9 - EDEMA, UNSPECIFIED (6) Acute kidney injury Code(s): N17.9 - ACUTE KIDNEY FAILURE, UNSPECIFIED (7) Leukocytosis Code(s): D72.829 - ELEVATED WHITE BLOOD CELL COUNT, UNSPECIFIED Qualifiers: Qualified Code(s): D72.829 - Elevated white blood cell count, unspecified (8) Deep venous embolism and thrombosis of right lower extremity Code(s): I82.401 - ACUTE EMBOLISM AND THOMBOS UNSP DEEP VEINS OF R LOW EXTREM Assessment/Plan 1. 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 HTN/HCVD 3. Autoimmune hepatitis 4. Acute on chronic kidney injury and hyperkalemia 5. RLE DVT PLAN: 1. Recommended neoadjuvant chemotherapy by Market Research Intern-Onc. Family considering second opinion at [facility] - likely to be seen as outpatient 2. Monitor renal function - renal input noted, currently on midodrine/octreotide 3. Continue Lopressor 50 mg bid and consider HANS-I/ARB once renal function and hyperkalemia stabilizes 4. IV heparin drip and eventual oral anticoagulation to start 5. Prednisone taper with GI protection
[2016-08-26] MEDS: WARFARIN NA 10 MG TABLET (FP) PO SCH (17:43)
[2016-08-27] MEDS: ACETAMINOPHEN 325 MG TABLET (FP) PO PRN ×2 (01:20→11:20)
[2016-08-27] MEDS: OCTREOTIDE ACETATE 100 MCG/1 ML SQ SCH ×3 (05:59→21:55)
[2016-08-27 07:23] LABS: MCH 29.4 pg (25.7-33.7); MCHC 32.3 g/dl (32.0-36.0); MEAN CELL VOLUME 91.1 fl (80-96); MEAN PLT VOLUME 9.4 fl (7.5-11.1); PLATELET COUNT 331 K/MM3 (134-434); RDW 17.7 % (11.6-15.6); WHITE BLOOD COUNT 23.4 K/mm3 (4.0-10.0)
[2016-08-27 07:44] LABS: INR 1.66 (0.82-1.09); PROTHROMBIN TIME (PATIENT) 18.4 SEC (9.98-11.88)
[2016-08-27 07:46] LABS: ALBUMIN 2.3 g/dl (3.4-5.0); BILIRUBIN,TOTAL 0.6 mg/dL (0.2-1.0); CALCIUM 8.1 mg/dL (8.5-10.1); COCKROFT - GAULT 35.207; CREATININE 2.4 mg/dL (0.55-1.02)
--- NOTE | 2016-08-27 08:19 | PN ---
Progress Note, Physician Chief Complaint: OOB to chair; did O2 sat/RA pre and post, O2 sat?ra >90%, does not need home O2 feels discouraged and depressed - Current Medication List Current Medications: Active Medications Acetaminophen (Tylenol -) 650 mg PO Q8H PRN PRN Reason: PAIN Last Admin: 08/27/16 01:20 Dose: 650 mg Heparin Sodium (Porcine) (Heparin -) 1,000 unit IVPUSH PRN PRN PRN Reason: Heparin Heparin Sodium (Porcine) (Heparin -) 5,000 unit IVPUSH PRN PRN PRN Reason: Heparin Last Admin: 08/25/16 00:09 Dose: 5,000 unit Heparin Sodium/Dextrose (Heparin Infusion -) 500 mls @ 20 mls/hr IVPB TITR ASTRID ; 1,000 UNITS/HR PRN Reason: Protocol Last Admin: 08/26/16 17:42 Dose: Not Given Metoprolol Tartrate (Lopressor -) 50 mg PO BID [facility] Last Admin: 08/26/16 22:11 Dose: 50 mg Midodrine (Proamatine -) 2.5 mg PO TID-MID [facility] Last Admin: 08/26/16 17:43 Dose: 2.5 mg Octreotide Acetate (Sandostatin -) 100 mcg SQ TID [facility] Last Admin: 08/27/16 05:59 Dose: 100 mcg Pantoprazole Sodium (Protonix -) 40 mg PO DAILY [facility] Last Admin: 08/26/16 09:43 Dose: 40 mg Prednisone (Deltasone -) 10 mg PO DAILY [facility] Last Admin: 08/26/16 09:43 Dose: 10 mg Sodium Bicarbonate (Sodium Bicarbonate -) 650 mg PO DAILY [facility] Last Admin: 08/26/16 09:43 Dose: 650 mg Warfarin Sodium (Coumadin -) 10 mg PO DAILY@1800 [facility] Last Admin: 08/26/16 17:43 Dose: 10 mg - Objective Vital Signs: Vital Signs Temperature 98.6 F 08/27/16 06:00 Pulse Rate 83 08/27/16 06:00 Respiratory Rate 18 08/27/16 06:00 Blood Pressure 121/50 08/27/16 06:00 O2 Sat by Pulse Oximetry (%) 94 L 08/26/16 22:00 Constitutional: Yes: No Distress Eyes: Yes: Conjunctiva Clear HENT: Yes: Atraumatic Neck: Yes: Supple Cardiovascular: Yes: Regular Rate and Rhythm Respiratory: Yes: CTA Bilaterally Gastrointestinal: Yes: Soft, Ascites Musculoskeletal: No: Joint Stiffness, Joint Swelling Extremities: No: Cold, Cool Edema: Yes Integumentary: No: Rash Neurological: Yes: WNL, Alert, Oriented ...Motor Strength: WNL Psychiatric: Yes: WNL, Alert, Oriented. No: Agitated Labs: CBC, BMP 08/27/16 06:15 08/27/16 06:15 INR, PTT INR 1.66 (0.82-1.09) H D 08/27/16 06:15 - ....Imaging Other: Report Reviewed Assessment/Plan 76 year old woman with PMhx of Autoimmune hepatitis (on Prednisone/Azothiprine) , HTN, OA, obesity, GERD who presented with increased Abd and lower extremity swelling, autoimmune hepatitis and liver cirrhosis on CT scan, CRF malignant Ascities mullerian origin Acute on CRF increasing BUN/CReat. s/p port a cath placement and ascites drainage started on coumadin, f/u INR renal, heme onc, labs f/u d/w pt and staff d/w heme dr Garvey
[2016-08-27] MEDS: predniSONE 10 MG TABLET (UD) PO SCH (09:41)
[2016-08-27] MEDS: METOPROLOL TARTRATE 50 MG TABLET (FP) PO SCH ×2 (09:41→21:55)
[2016-08-27] MEDS: PANTOPRAZOLE 40 MG TABLET (FP) PO SCH (09:42)
[2016-08-27] MEDS: HEPARIN INFUSION - 500 ML IVPB SCH ×3 (09:42→23:35)
[2016-08-27] MEDS: MIDODRINE HCL 2.5 MG TABLET PO SCH ×3 (09:42→17:22)
[2016-08-27] MEDS: SODIUM BICARBONATE 650 MG TABLET PO SCH (09:42)
[2016-08-27 09:59] LABS: PLATELET ESTIMATE ADEQUATE (NORMAL)
--- NOTE | 2016-08-27 11:37 | PN ---
Progress Note, Physician History of Present Illness: Ascites reaccumulating with consequent dyspnea. Peritoneal fluid cytology is significant for peritoneal carcinomatosis, neoadjuvant chemotherapy recommended by customer account administrator-onc. Ca-125 markedly elevated, s/p portacath placement. - Current Medication List Current Medications: Active Medications Acetaminophen (Tylenol -) 650 mg PO Q8H PRN PRN Reason: PAIN Last Admin: 08/27/16 11:20 Dose: 650 mg Heparin Sodium (Porcine) (Heparin -) 1,000 unit IVPUSH PRN PRN PRN Reason: Heparin Heparin Sodium (Porcine) (Heparin -) 5,000 unit IVPUSH PRN PRN PRN Reason: Heparin Last Admin: 08/25/16 00:09 Dose: 5,000 unit Heparin Sodium/Dextrose (Heparin Infusion -) 500 mls @ 20 mls/hr IVPB TITR ASTRID ; 1,000 UNITS/HR PRN Reason: Protocol Last Admin: 08/27/16 09:42 Dose: 22 mls/hr Metoprolol Tartrate (Lopressor -) 50 mg PO BID [facility] Last Admin: 08/27/16 09:41 Dose: 50 mg Midodrine (Proamatine -) 2.5 mg PO TID-MID [facility] Last Admin: 08/27/16 09:42 Dose: 2.5 mg Octreotide Acetate (Sandostatin -) 100 mcg SQ TID [facility] Last Admin: 08/27/16 05:59 Dose: 100 mcg Pantoprazole Sodium (Protonix -) 40 mg PO DAILY [facility] Last Admin: 08/27/16 09:42 Dose: 40 mg Prednisone (Deltasone -) 10 mg PO DAILY [facility] Last Admin: 08/27/16 09:41 Dose: 10 mg Sodium Bicarbonate (Sodium Bicarbonate -) 650 mg PO DAILY [facility] Last Admin: 08/27/16 09:42 Dose: 650 mg Warfarin Sodium (Coumadin -) 10 mg PO DAILY@1800 [facility] Last Admin: 08/26/16 17:43 Dose: 10 mg - Objective Vital Signs: Vital Signs Temperature 98.6 F 08/27/16 10:00 Pulse Rate 85 08/27/16 10:00 Respiratory Rate 18 08/27/16 10:00 Blood Pressure 140/76 08/27/16 10:00 O2 Sat by Pulse Oximetry (%) 94 L 08/26/16 22:00 Constitutional: Yes: No Distress, Calm Neck: Yes: Supple Cardiovascular: Yes: Regular Rate and Rhythm Respiratory: Yes: Regular, Diminished Gastrointestinal: Yes: Distention Edema: Yes Edema: LLE: 3+, RLE: 3+ Labs: CBC, BMP 08/27/16 06:15 08/27/16 06:15 INR, PTT INR 1.66 (0.82-1.09) H D 08/27/16 06:15 Problem List - Problems (1) Ascites Code(s): R18.8 - OTHER ASCITES Qualifiers: Qualified Code(s): R18.8 - Other ascites (2) Acute diastolic heart failure Code(s): I50.31 - ACUTE DIASTOLIC (CONGESTIVE) HEART FAILURE (3) Hypertensive cardiomyopathy Code(s): I11.9 - HYPERTENSIVE HEART DISEASE WITHOUT HEART FAILURE I42.9 - CARDIOMYOPATHY, UNSPECIFIED Qualifiers: Qualified Code(s): I11.0 - Hypertensive heart disease with heart failure (4) Autoimmune hepatitis Code(s): K75.4 - AUTOIMMUNE HEPATITIS (5) Peripheral edema Code(s): R60.9 - EDEMA, UNSPECIFIED (6) Acute kidney injury Code(s): N17.9 - ACUTE KIDNEY FAILURE, UNSPECIFIED (7) Leukocytosis Code(s): D72.829 - ELEVATED WHITE BLOOD CELL COUNT, UNSPECIFIED Qualifiers: Qualified Code(s): D72.829 - Elevated white blood cell count, unspecified (8) Deep venous embolism and thrombosis of right lower extremity Code(s): I82.401 - ACUTE EMBOLISM AND THOMBOS UNSP DEEP VEINS OF R LOW EXTREM Assessment/Plan 1. 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 HTN/HCVD 3. Autoimmune hepatitis 4. Acute on chronic kidney injury and hyperkalemia improvng 5. RLE DVT PLAN: 1. Recommended neoadjuvant chemotherapy by Soil Scientist-Onc. [place] [facility] [place] likely to be seen as outpatient 2. Monitor renal function - renal input noted, currently on midodrine/octreotide 3. Continue Lopressor 50 mg bid and consider HANS-I/ARB once renal function and hyperkalemia stabilizes 4. Heparin drip -> Coumadin per INR 5. Prednisone 10 qd with GI protection
--- NOTE | 2016-08-27 15:07 | PN ---
Progress Note (short form) - Note Progress Note: patient seen and exmined feels like she is filling up again Last Vital Signs Temp Pulse Resp BP Pulse Ox 98.6 F 85 18 140/76 95 08/27/16 10:00 08/27/16 10:00 08/27/16 10:00 08/27/16 10:00 08/27/16 09:00 Neck: Supple Nodes: Without adenopathy Cor: RSR, No murmurs, No gallops Lungs: Clear to P&A Abd: Soft, Normal bowel sounds, ascites ++ Ext:2+ edema b/l Abnormal Lab Results 08/27/16 08/27/16 08/27/16 06:15 06:15 06:15 WBC 23.4 H RDW 17.7 H Neutrophils % 85.0 H INR 1.66 H D PTT (Actin FS) 65.4 H Sodium Chloride BUN Creatinine Random Glucose Calcium AST Total Protein Albumin 08/27/16 06:15 WBC RDW Neutrophils % INR PTT (Actin FS) Sodium 133 L Chloride 97 L BUN 121 H* Creatinine 2.4 H Random Glucose 227 H Calcium 8.1 L AST 51 H Total Protein 5.0 L Albumin 2.3 L D Active Medications Generic Name Dose Route Start Last Admin Trade Name Freq PRN Reason Stop Dose Admin Acetaminophen 650 mg 08/24/16 11:09 08/27/16 11:20 Tylenol - PO 650 mg Q8H PRN Administration PAIN Heparin Sodium (Porcine) 1,000 unit 08/24/16 11:08 Heparin - IVPUSH PRN PRN Heparin Heparin Sodium (Porcine) 5,000 unit 08/24/16 11:08 08/25/16 00:09 Heparin - IVPUSH 5,000 unit PRN PRN Administration Heparin Heparin Sodium/Dextrose 500 mls @ 20 mls/hr 08/24/16 16:15 08/27/16 09:42 Heparin Infusion - IVPB 22 mls/hr TITR [facility] Administration Protocol 1,000 UNITS/HR Metoprolol Tartrate 50 mg 08/24/16 22:00 08/27/16 09:41 Lopressor - PO 50 mg BID [facility] Administration Midodrine 2.5 mg 08/24/16 14:00 08/27/16 14:15 Proamatine - PO 2.5 mg TID-MID [facility] Administration Octreotide Acetate 100 mcg 08/24/16 14:00 08/27/16 14:15 Sandostatin - SQ 100 mcg TID [facility] Administration Pantoprazole Sodium 40 mg 08/25/16 10:00 08/27/16 09:42 Protonix - PO 40 mg DAILY [facility] Administration Prednisone 10 mg 08/25/16 10:00 08/27/16 09:41 Deltasone - PO 10 mg DAILY [facility] Administration Sodium Bicarbonate 650 mg 08/25/16 12:15 08/27/16 09:42 Sodium Bicarbonate - PO 650 mg DAILY [facility] Administration Warfarin Sodium 10 mg 08/26/16 18:00 08/26/16 17:43 Coumadin - PO 10 mg DAILY@1800 [facility] Administration A/P 76 y/o patient with autoimmune hepatitis with cirrhosis, dvt rle, presenting with ascites Liver disease --biopsy 06/29 showed chronic hepatitis with moderate activity grade 3 of 4 and transition to cirrhosis stge 3 of 4 c/w autoimmune hepatitis PT/PTT normal at base line On imaging CT shows small and irregular liver c/w advanced hepatocellular disease. AST--mildly elevated. TBILi nl. Albumin 2.9. Possibly CHILD B Concern for hepatorenal componenet to renal failure Acute renal failure---discussed with renal team ---suspect hepatorenal component to acute kidney injury. Cr 2.4 today better from 2.7 Cr clearnce ranging from 17-23ml/min. 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 But if unable to anticoagulate will need ivc filter. [place] choice of a/c will be lovenox but given ongoing renal insufficiency will need to consider bridging to coumadin. Baseline PT/PTT were normal--bridging to coumadin Overlap heparin to coumadin for 24hrs. -48hrs. once INR is therapeutic Discussed at length with patient and her family
[2016-08-27] MEDS: WARFARIN NA 10 MG TABLET (FP) PO SCH (17:22)
[2016-08-27] MEDS ORDERED: PT OWN MED DRAWER 7, Y5N ONE (21:36)
--- NOTE | 2016-08-27 22:40 | PN ---
Progress Note (short form) - Note Progress Note: no specific complaint chart reviewed and patient examined Current Medications Acetaminophen (Tylenol -) 650 mg PO Q8H PRN PRN Reason: PAIN Last Admin: 08/27/16 11:20 Dose: 650 mg Heparin Sodium (Porcine) (Heparin -) 1,000 unit IVPUSH PRN PRN PRN Reason: Heparin Heparin Sodium (Porcine) (Heparin -) 5,000 unit IVPUSH PRN PRN PRN Reason: Heparin Last Admin: 08/25/16 00:09 Dose: 5,000 unit Heparin Sodium/Dextrose (Heparin Infusion -) 500 mls @ 20 mls/hr IVPB TITR [facility] ; 1,000 UNITS/HR PRN Reason: Protocol Last Admin: 08/27/16 17:22 Dose: Not Given Metoprolol Tartrate (Lopressor -) 50 mg PO BID [facility] Last Admin: 08/27/16 21:55 Dose: Not Given Midodrine (Proamatine -) 2.5 mg PO TID-MID [facility] Last Admin: 08/27/16 17:22 Dose: 2.5 mg Octreotide Acetate (Sandostatin -) 100 mcg SQ TID [facility] Last Admin: 08/27/16 21:55 Dose: 100 mcg Pantoprazole Sodium (Protonix -) 40 mg PO DAILY [facility] Last Admin: 08/27/16 09:42 Dose: 40 mg Prednisone (Deltasone -) 10 mg PO DAILY [facility] Last Admin: 08/27/16 09:41 Dose: 10 mg Sodium Bicarbonate (Sodium Bicarbonate -) 650 mg PO DAILY [facility] Last Admin: 08/27/16 09:42 Dose: 650 mg Warfarin Sodium (Coumadin -) 10 mg PO DAILY@1800 [facility] Last Admin: 08/27/16 17:22 Dose: 10 mg Last Vital Signs Temp Pulse Resp BP Pulse Ox 98.0 F 80 18 116/41 95 08/27/16 21:58 08/27/16 21:58 08/27/16 21:58 08/27/16 21:58 08/27/16 09:00 Lungs clear heart reg rate and rhythm abd soft ext no edema CBC, BMP 08/27/16 06:15 08/27/16 06:15 IMP- autoimmune hepatitis nieves dvt ?ovarian malignancy Plan- continue present mgmt follow serum chems
[2016-08-28] MEDS: ACETAMINOPHEN 325 MG TABLET (FP) PO PRN ×2 (04:20→23:23)
[2016-08-28] MEDS: OCTREOTIDE ACETATE 100 MCG/1 ML SQ SCH ×3 (06:39→23:18)
[2016-08-28 08:28] LABS: MCH 29.1 pg (25.7-33.7); MCHC 31.8 g/dl (32.0-36.0); MEAN CELL VOLUME 91.4 fl (80-96); PLATELET COUNT 386 K/MM3 (134-434); RDW 17.8 % (11.6-15.6); WHITE BLOOD COUNT 23.3 K/mm3 (4.0-10.0)
[2016-08-28 08:36] LABS: BASOPHIL 0.8 % (0-2.0); EOSINOPHIL 0.1 % (0-4.5); MCH 29.1 pg (25.7-33.7); MCHC 31.9 g/dl (32.0-36.0); MEAN CELL VOLUME 91.3 fl (80-96); MEAN PLT VOLUME 9.4 fl (7.5-11.1); NEUTROPHILS 87.4 % (42.8-82.8); PLATELET COUNT 384 K/MM3 (134-434); WHITE BLOOD COUNT 23.6 K/mm3 (4.0-10.0)
[2016-08-28 08:58] LABS: ALBUMIN 2.7 g/dl (3.4-5.0); CALCIUM 8.5 mg/dL (8.5-10.1)
[2016-08-28 09:06] LABS: BILIRUBIN,TOTAL 0.7 mg/dL (0.2-1.0); COCKROFT - GAULT 33.575; CREATININE 2.5 mg/dL (0.55-1.02); TOT PROT 5.8 g/dl (6.4-8.2)
[2016-08-28 09:17] LABS: INR 2.69 (0.82-1.09); PROTHROMBIN TIME (PATIENT) 30.2 SEC (9.98-11.88)
[2016-08-28] MEDS: METOPROLOL TARTRATE 50 MG TABLET (FP) PO SCH ×2 (10:08→23:18)
[2016-08-28] MEDS: SODIUM BICARBONATE 650 MG TABLET PO SCH (10:08)
[2016-08-28] MEDS: PANTOPRAZOLE 40 MG TABLET (FP) PO SCH (10:08)
[2016-08-28] MEDS: predniSONE 10 MG TABLET (UD) PO SCH (10:08)
[2016-08-28] MEDS: MIDODRINE HCL 2.5 MG TABLET PO SCH ×3 (10:08→17:40)
--- NOTE | 2016-08-28 12:25 | PN ---
Progress Note (short form) - Note Progress Note: Chief Complaint: Events noted, notes reviewed, dyspnea persists, denies any chest pain History of Present Illness: Seen and examined. Events noted, notes reviewed, dyspnea persists, denies any chest pain - Current Medication List Current Medications Acetaminophen (Tylenol -) 650 mg PO Q8H PRN PRN Reason: PAIN Last Admin: 08/28/16 04:20 Dose: 650 mg Heparin Sodium (Porcine) (Heparin -) 1,000 unit IVPUSH PRN PRN PRN Reason: Heparin Heparin Sodium (Porcine) (Heparin -) 5,000 unit IVPUSH PRN PRN PRN Reason: Heparin Last Admin: 08/25/16 00:09 Dose: 5,000 unit Heparin Sodium/Dextrose (Heparin Infusion -) 500 mls @ 20 mls/hr IVPB TITR ASTRID ; 1,000 UNITS/HR PRN Reason: Protocol Last Titration: 08/28/16 10:00 Dose: 950 units/hr Metoprolol Tartrate (Lopressor -) 50 mg PO BID [facility] Last Admin: 08/28/16 10:08 Dose: 50 mg Midodrine (Proamatine -) 2.5 mg PO TID-MID [facility] Last Admin: 08/28/16 10:08 Dose: 2.5 mg Octreotide Acetate (Sandostatin -) 100 mcg SQ TID [facility] Last Admin: 08/28/16 06:39 Dose: 100 mcg Pantoprazole Sodium (Protonix -) 40 mg PO DAILY [facility] Last Admin: 08/28/16 10:08 Dose: 40 mg Prednisone (Deltasone -) 10 mg PO DAILY [facility] Last Admin: 08/28/16 10:08 Dose: 10 mg Sodium Bicarbonate (Sodium Bicarbonate -) 650 mg PO DAILY [facility] Last Admin: 08/28/16 10:08 Dose: 650 mg Warfarin Sodium (Coumadin -) 10 mg PO DAILY@1800 [facility] Last Admin: 08/27/16 17:22 Dose: 10 mg - Objective Vital Signs: Last Vital Signs Temp Pulse Resp BP Pulse Ox 97.9 F 89 20 129/63 96 08/28/16 09:36 08/28/16 09:38 08/28/16 09:36 08/28/16 09:36 08/28/16 09:38 Constitutional: No Distress, Calm Neck: Supple Negative JVD Cardiovascular: S1 S2 Regular Rate and Rhythm Respiratory: Diminished Breath Sounds at the Bases Gastrointestinal: Distented Benign Normal Bowel sounds Ext: : 2-3 + Edema Labs: CBC, BMP 08/28/16 07:30 08/28/16 07:30 Hepatic Panel Total Bilirubin 0.7 mg/dL (0.2-1.0) 08/28/16 07:30 AST 63 U/L (15-37) H D 08/28/16 07:30 ALT 15 U/L (12-78) 08/28/16 07:30 Alkaline Phosphatase 136 U/L (45-117) H D 08/28/16 07:30 Albumin 2.7 g/dl (3.4-5.0) L 08/28/16 07:30 Assessment/Plan ASSESSMENT: 1. 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 Diastolic LV dysfunction with chronic class I NYHA classification LV failure , compensated 3. HTN 4. Hyperglycemia, DM 5. Autoimmune hepatitis 6. Acute on chronic kidney injury 7. Right lower extremity deep vein thrombosis PLAN: 1. Continue Lopressor 2. Consider HANS-I/ARB once renal function stabilizes 3. Heparin drip and transition to Coumadin as per INR 4. Continue Midodrine as prescribed Roselia Montez MD
--- NOTE | 2016-08-28 15:35 | PN ---
Progress Note, Physician History of Present Illness: Pt w/o SOB at rest. Pt with SANTA, leg edema, abd pressure. Pt w/o CP, palpitations - Current Medication List Current Medications: Active Medications Acetaminophen (Tylenol -) 650 mg PO Q8H PRN PRN Reason: PAIN Last Admin: 08/28/16 04:20 Dose: 650 mg Heparin Sodium (Porcine) (Heparin -) 1,000 unit IVPUSH PRN PRN PRN Reason: Heparin Heparin Sodium (Porcine) (Heparin -) 5,000 unit IVPUSH PRN PRN PRN Reason: Heparin Last Admin: 08/25/16 00:09 Dose: 5,000 unit Heparin Sodium/Dextrose (Heparin Infusion -) 500 mls @ 20 mls/hr IVPB TITR ASTRID ; 1,000 UNITS/HR PRN Reason: Protocol Last Titration: 08/28/16 10:00 Dose: 950 units/hr Metoprolol Tartrate (Lopressor -) 50 mg PO BID [facility] Last Admin: 08/28/16 10:08 Dose: 50 mg Midodrine (Proamatine -) 2.5 mg PO TID-MID [facility] Last Admin: 08/28/16 14:58 Dose: 2.5 mg Octreotide Acetate (Sandostatin -) 100 mcg SQ TID [facility] Last Admin: 08/28/16 14:58 Dose: 100 mcg Pantoprazole Sodium (Protonix -) 40 mg PO DAILY [facility] Last Admin: 08/28/16 10:08 Dose: 40 mg Prednisone (Deltasone -) 10 mg PO DAILY [facility] Last Admin: 08/28/16 10:08 Dose: 10 mg Sodium Bicarbonate (Sodium Bicarbonate -) 650 mg PO DAILY [facility] Last Admin: 08/28/16 10:08 Dose: 650 mg Warfarin Sodium (Coumadin -) 10 mg PO DAILY@1800 [facility] Last Admin: 08/27/16 17:22 Dose: 10 mg - Objective Vital Signs: Vital Signs Temperature 97.9 F 08/28/16 09:36 Pulse Rate 89 08/28/16 09:38 Respiratory Rate 20 08/28/16 09:36 Blood Pressure 129/63 08/28/16 09:36 O2 Sat by Pulse Oximetry (%) 96 08/28/16 09:38 Constitutional: Yes: No Distress, Calm Cardiovascular: Yes: Regular Rate and Rhythm, S1, S2 Respiratory: Yes: Regular, CTA Bilaterally. No: Rales Gastrointestinal: Yes: Normal Bowel Sounds, Soft, Ascites, Distention. 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 s/p multiple paracenetesis Code(s): R18.8 - OTHER ASCITES Qualifiers: Qualified Code(s): R18.8 - Other ascites (2) Autoimmune hepatitis Assessment/Plan: On Prednisone now ( pt. was on Azathioprine Code(s): K75.4 - AUTOIMMUNE HEPATITIS (3) Dyspnea on exertion Assessment/Plan: likely secondary to diminished lung capacity, secondary to ascites Code(s): R06.09 - OTHER FORMS OF DYSPNEA (4) Acute kidney injury Assessment/Plan: Likely secondary to low renal flow, secondary to ascites. To f/u labs Renal consult and f/u appreciated. Code(s): N17.9 - ACUTE KIDNEY FAILURE, UNSPECIFIED (5) Leukocytosis Assessment/Plan: Stable, elevated. 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 Rheum Consult appreciated AM labs Case was d/w pt. and pt.'s son; both wants to go to [place] and would favor starting chemo at [place] if pt.'s condition allows.
--- NOTE | 2016-08-28 16:33 | PN ---
Progress Note (short form) - Note Progress Note: in nad poor appetite weak no complaint otherwise Current Medications Acetaminophen (Tylenol -) 650 mg PO Q8H PRN PRN Reason: PAIN Last Admin: 08/28/16 04:20 Dose: 650 mg Heparin Sodium (Porcine) (Heparin -) 1,000 unit IVPUSH PRN PRN PRN Reason: Heparin Heparin Sodium (Porcine) (Heparin -) 5,000 unit IVPUSH PRN PRN PRN Reason: Heparin Last Admin: 08/25/16 00:09 Dose: 5,000 unit Heparin Sodium/Dextrose (Heparin Infusion -) 500 mls @ 20 mls/hr IVPB TITR ASTRID ; 1,000 UNITS/HR PRN Reason: Protocol Last Titration: 08/28/16 10:00 Dose: 950 units/hr Metoprolol Tartrate (Lopressor -) 50 mg PO BID [facility] Last Admin: 08/28/16 10:08 Dose: 50 mg Midodrine (Proamatine -) 2.5 mg PO TID-MID [facility] Last Admin: 08/28/16 14:58 Dose: 2.5 mg Octreotide Acetate (Sandostatin -) 100 mcg SQ TID [facility] Last Admin: 08/28/16 14:58 Dose: 100 mcg Pantoprazole Sodium (Protonix -) 40 mg PO DAILY [facility] Last Admin: 08/28/16 10:08 Dose: 40 mg Prednisone (Deltasone -) 10 mg PO DAILY [facility] Last Admin: 08/28/16 10:08 Dose: 10 mg Sodium Bicarbonate (Sodium Bicarbonate -) 650 mg PO DAILY [facility] Last Admin: 08/28/16 10:08 Dose: 650 mg Warfarin Sodium (Coumadin -) 5 mg PO DAILY@1800 [facility] Last Vital Signs Temp Pulse Resp BP Pulse Ox 97.7 F 77 18 123/50 96 08/28/16 14:47 08/28/16 14:47 08/28/16 14:47 08/28/16 14:47 08/28/16 09:38 CBC, BMP 08/28/16 07:30 08/28/16 07:30 IMP- hyponatremia Prerenal azotemia CKD renal function unchanged continue to monitor
[2016-08-28] MEDS ORDERED: WARFARIN NA 5 MG TABLET (UD) PO SCH (18:00)
[2016-08-28] MEDS: HEPARIN INFUSION - 500 ML IVPB SCH (18:00)
[2016-08-28] MEDS ORDERED: PT OWN MED DRAWER 7, Y5N ONE (21:06)
[2016-08-29] MEDS: OCTREOTIDE ACETATE 100 MCG/1 ML SQ SCH ×3 (06:41→22:31)
[2016-08-29 08:27] LABS: MCH 29.4 pg (25.7-33.7); MCHC 32.4 g/dl (32.0-36.0); MEAN CELL VOLUME 90.8 fl (80-96); MEAN PLT VOLUME 9.2 fl (7.5-11.1); PLATELET COUNT 384 K/MM3 (134-434); RDW 17.8 % (11.6-15.6); WHITE BLOOD COUNT 22.5 K/mm3 (4.0-10.0)
[2016-08-29 08:47] LABS: CALCIUM 8.5 mg/dL (8.5-10.1); COCKROFT - GAULT 34.935; CREATININE 2.4 mg/dL (0.55-1.02)
[2016-08-29] MEDS: SODIUM BICARBONATE 650 MG TABLET PO SCH (09:06)
[2016-08-29] MEDS: PANTOPRAZOLE 40 MG TABLET (FP) PO SCH (09:07)
[2016-08-29] MEDS: predniSONE 10 MG TABLET (UD) PO SCH (09:07)
[2016-08-29] MEDS: METOPROLOL TARTRATE 50 MG TABLET (FP) PO SCH ×2 (09:07→22:31)
[2016-08-29] MEDS: MIDODRINE HCL 2.5 MG TABLET PO SCH ×3 (09:07→18:19)
[2016-08-29 09:48] LABS: PROTHROMBIN TIME (PATIENT) 47.7 SEC (9.98-11.88)
[2016-08-29 09:56] LABS: INR 4.21 (0.82-1.09)
--- NOTE | 2016-08-29 10:34 | PN ---
Progress Note (short form) - Note Progress Note: Chief Complaint: Events noted, notes reviewed, dyspnea improved, denies any chest pain History of Present Illness: Seen and examined. Events noted, notes reviewed, dyspnea improved, denies any chest pain - Current Medication List Current Medications Acetaminophen (Tylenol -) 650 mg PO Q8H PRN PRN Reason: PAIN Last Admin: 08/28/16 23:23 Dose: 650 mg Heparin Sodium (Porcine) (Heparin -) 1,000 unit IVPUSH PRN PRN PRN Reason: Heparin Heparin Sodium (Porcine) (Heparin -) 5,000 unit IVPUSH PRN PRN PRN Reason: Heparin Last Admin: 08/25/16 00:09 Dose: 5,000 unit Heparin Sodium/Dextrose (Heparin Infusion -) 500 mls @ 20 mls/hr IVPB TITR ASTRID ; 1,000 UNITS/HR PRN Reason: Protocol Last Titration: 08/29/16 09:48 Dose: 800 units/hr Metoprolol Tartrate (Lopressor -) 50 mg PO BID [facility] Last Admin: 08/29/16 09:07 Dose: 50 mg Midodrine (Proamatine -) 2.5 mg PO TID-MID [facility] Last Admin: 08/29/16 09:07 Dose: 2.5 mg Octreotide Acetate (Sandostatin -) 100 mcg SQ TID [facility] Last Admin: 08/29/16 06:41 Dose: 100 mcg Pantoprazole Sodium (Protonix -) 40 mg PO DAILY [facility] Last Admin: 08/29/16 09:07 Dose: 40 mg Prednisone (Deltasone -) 10 mg PO DAILY [facility] Last Admin: 08/29/16 09:07 Dose: 10 mg Sodium Bicarbonate (Sodium Bicarbonate -) 650 mg PO DAILY [facility] Last Admin: 08/29/16 09:06 Dose: 650 mg Warfarin Sodium (Coumadin -) 5 mg PO DAILY@1800 [facility] Last Admin: 08/28/16 17:40 Dose: 5 mg - Objective Vital Signs: Last Vital Signs Temp Pulse Resp BP Pulse Ox 98.1 F 92 H 18 132/63 96 08/29/16 09:05 08/29/16 09:40 08/29/16 09:05 08/29/16 09:05 08/29/16 09:40 Intake & Output 08/26/16 08/27/16 08/28/16 08/29/16 23:59 23:59 23:59 23:59 Intake Total 1484 1783 1042 216 Balance 1484 1783 1042 216 Weight 249 lb 250 lb 8 oz 249 lb 1.6 oz Constitutional: No Distress, Calm Neck: Supple Negative JVD Cardiovascular: S1 S2 Regular Rate and Rhythm Respiratory: Diminished Breath Sounds at the Bases Gastrointestinal: Distented Benign Normal Bowel sounds Ext: : 2-3 + Edema Labs: CBC, BMP 08/29/16 06:45 08/29/16 06:45 INR, PTT INR 4.21 (0.82-1.09) H* D 08/29/16 06:45 Assessment/Plan ASSESSMENT: 1. 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 Diastolic LV dysfunction with chronic class I NYHA classification LV failure , compensated 3. HTN 4. Hyperglycemia, DM 5. Autoimmune hepatitis 6. Acute on chronic kidney injury 7. Right lower extremity deep vein thrombosis, on Heparin/Coumadin with supra- therapeutic INR PLAN: 1. Continue Lopressor 2. Consider HANS-I/ARB once renal function stabilizes 3. D/C Heparin drip and dose Coumadin as per INR 4. Continue Midodrine as prescribed Roselia Montez MD
[2016-08-29] MEDS ORDERED: WARFARIN NA 5 MG TABLET (UD) PO SCH ×2 (10:35→18:00)
[2016-08-29] MEDS ORDERED: PT OWN MED DRAWER 7, Y5N ONE ×2 (14:21→21:43)
--- NOTE | 2016-08-29 15:19 | PN ---
Progress Note, Physician History of Present Illness: Pt w/o SOB at rest. Pt with SANTA, leg edema, abd pressure. Pt w/o CP, palpitations, N, V. - Current Medication List Current Medications: Active Medications Acetaminophen (Tylenol -) 650 mg PO Q8H PRN PRN Reason: PAIN Last Admin: 08/28/16 23:23 Dose: 650 mg Metoprolol Tartrate (Lopressor -) 50 mg PO BID [facility] Last Admin: 08/29/16 09:07 Dose: 50 mg Midodrine (Proamatine -) 2.5 mg PO TID-MID [facility] Last Admin: 08/29/16 14:34 Dose: 2.5 mg Octreotide Acetate (Sandostatin -) 100 mcg SQ TID [facility] Last Admin: 08/29/16 14:33 Dose: 100 mcg Pantoprazole Sodium (Protonix -) 40 mg PO DAILY [facility] Last Admin: 08/29/16 09:07 Dose: 40 mg Prednisone (Deltasone -) 10 mg PO DAILY [facility] Last Admin: 08/29/16 09:07 Dose: 10 mg Sodium Bicarbonate (Sodium Bicarbonate -) 650 mg PO DAILY [facility] Last Admin: 08/29/16 09:06 Dose: 650 mg - Objective Vital Signs: Vital Signs Temperature 98.1 F 08/29/16 09:05 Pulse Rate 92 H 08/29/16 09:40 Respiratory Rate 18 08/29/16 09:05 Blood Pressure 132/63 08/29/16 09:05 O2 Sat by Pulse Oximetry (%) 95 08/29/16 10:00 Constitutional: Yes: No Distress, Calm Cardiovascular: Yes: Regular Rate and Rhythm, S1, S2 Respiratory: Yes: Regular, CTA Bilaterally Gastrointestinal: Yes: Normal Bowel Sounds, Soft, Abdomen, Obese, Ascites Edema: LLE: 2+, RLE: 2+ Labs: CBC, BMP 08/29/16 06:45 08/29/16 06:45 INR, PTT INR 4.21 (0.82-1.09) H* D 08/29/16 06:45 Problem List - Problems (1) Ascites Assessment/Plan: Recurrent ascites secondary to 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 s/p multiple paracenetesis Code(s): R18.8 - OTHER ASCITES Qualifiers: Qualified Code(s): R18.8 - Other ascites (2) Autoimmune hepatitis Assessment/Plan: On Prednisone now ( pt. was on Azathioprine) Code(s): K75.4 - AUTOIMMUNE HEPATITIS (3) Dyspnea on exertion Assessment/Plan: likely secondary to diminished lung capacity, secondary to ascites Code(s): R06.09 - OTHER FORMS OF DYSPNEA (4) Acute kidney injury Assessment/Plan: Likely secondary to low renal flow, secondary to ascites. To f/u labs Renal consult and f/u appreciated. Code(s): N17.9 - ACUTE KIDNEY FAILURE, UNSPECIFIED (5) Leukocytosis Code(s): D72.829 - ELEVATED WHITE BLOOD CELL COUNT, UNSPECIFIED Qualifiers: Qualified Code(s): D72.829 - Elevated white blood cell count, unspecified (6) Obesity Code(s): E66.9 - OBESITY, UNSPECIFIED Assessment/Plan (Problem list cannot add new Dg.) Right leg DVT- started on Coumadin; both overlapped for at least 24. Membership Director CA- Onco consult and f/u appreciated; pt still to decide regarding place of treatment- pt's son today at bedside. Supratherapeutic INR- Coumadin on hold, to [facility] IV Rheum Consult appreciated AM labs Pt wants to go to [place] and would favor starting chemo at [place], if pt.'s condition allows.
--- NOTE | 2016-08-29 17:15 | PN ---
Progress Note (short form) - Note Progress Note: Current Medications Acetaminophen (Tylenol -) 650 mg PO Q8H PRN PRN Reason: PAIN Last Admin: 08/28/16 23:23 Dose: 650 mg Metoprolol Tartrate (Lopressor -) 50 mg PO BID [facility] Last Admin: 08/29/16 09:07 Dose: 50 mg Midodrine (Proamatine -) 2.5 mg PO TID-MID [facility] Last Admin: 08/29/16 14:34 Dose: 2.5 mg Octreotide Acetate (Sandostatin -) 100 mcg SQ TID [facility] Last Admin: 08/29/16 14:33 Dose: 100 mcg Pantoprazole Sodium (Protonix -) 40 mg PO DAILY [facility] Last Admin: 08/29/16 09:07 Dose: 40 mg Prednisone (Deltasone -) 10 mg PO DAILY [facility] Last Admin: 08/29/16 09:07 Dose: 10 mg Sodium Bicarbonate (Sodium Bicarbonate -) 650 mg PO DAILY [facility] Last Admin: 08/29/16 09:06 Dose: 650 mg Warfarin Sodium (Coumadin -) 5 mg PO DAILY@1800 [facility] Last Admin: 08/29/16 17:11 Dose: Not Given Last Vital Signs Temp Pulse Resp BP Pulse Ox 97.3 F L 78 18 144/78 95 08/29/16 14:28 08/29/16 14:28 08/29/16 14:28 08/29/16 14:28 08/29/16 10:00 CBC, BMP 08/29/16 06:45 08/29/16 06:45 imp ckd renal function stable for transfer to [facility]
[2016-08-30] MEDS: OCTREOTIDE ACETATE 100 MCG/1 ML SQ SCH ×2 (06:46→15:40)
[2016-08-30 07:55] LABS: MCH 29.4 pg (25.7-33.7); MCHC 32.5 g/dl (32.0-36.0); MEAN CELL VOLUME 90.5 fl (80-96); PLATELET COUNT 377 K/MM3 (134-434); WHITE BLOOD COUNT 21.2 K/mm3 (4.0-10.0)
[2016-08-30 08:17] LABS: ALBUMIN 2.6 g/dl (3.4-5.0); BILIRUBIN,TOTAL 0.9 mg/dL (0.2-1.0); CALCIUM 8.9 mg/dL (8.5-10.1); COCKROFT - GAULT 32.4445; CREATININE 2.6 mg/dL (0.55-1.02)
[2016-08-30] MEDS ORDERED: SODIUM POLYSTYRENE SULFONATE 15 GM/60 ML BOTTLE PO ONE (09:45)
[2016-08-30] MEDS: SODIUM BICARBONATE 650 MG TABLET PO SCH (10:53)
[2016-08-30] MEDS: predniSONE 10 MG TABLET (UD) PO SCH (10:54)
[2016-08-30] MEDS: METOPROLOL TARTRATE 50 MG TABLET (FP) PO SCH (10:54)
[2016-08-30] MEDS: MIDODRINE HCL 2.5 MG TABLET PO SCH ×2 (10:54→15:40)
[2016-08-30] MEDS: PANTOPRAZOLE 40 MG TABLET (FP) PO SCH (10:54)
[2016-08-30 11:53] LABS: PROTHROMBIN TIME (PATIENT) 55.7 SEC (9.98-11.88)
[2016-08-30 12:10] LABS: INR 4.9 (0.82-1.09)
--- NOTE | 2016-08-30 13:22 | DS ---
Physical Examination Vital Signs: Vital Signs Temperature 97.4 F L 08/30/16 06:00 Pulse Rate 75 08/30/16 06:00 Respiratory Rate 20 08/30/16 06:00 Blood Pressure 133/59 08/30/16 06:00 O2 Sat by Pulse Oximetry (%) 95 08/29/16 10:00 Constitutional: Yes: No Distress, Calm Cardiovascular: Yes: Regular Rate and Rhythm, S1, S2 Respiratory: Yes: Regular, CTA Bilaterally Gastrointestinal: Yes: Normal Bowel Sounds, Soft, Abdomen, Obese, Ascites Edema: LLE: 2+, RLE: 2+ Neurological: Yes: Alert, Oriented Labs: CBC, BMP 08/30/16 06:45 08/30/16 06:45 Discharge Summary Reason For Visit: ASCITES Current Active Problems Acute diastolic heart failure (Acute) Acute kidney injury (Acute) Ascites (Acute) Autoimmune hepatitis (Acute) CHF (congestive heart failure) (Acute) Deep venous embolism and thrombosis of right lower extremity (Acute) Dyspnea on exertion (Acute) Hyperkalemia (Acute) Hypertensive cardiomyopathy (Acute) Leukocytosis (Acute) Obesity (Acute) Peripheral edema (Acute) Hospital Course: Pt. came to the office c/o SANTA, increase in abdominal girth, leg edema. Pt. 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 Pt. was seen by Oncology( Dr. 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 Aldo Dia), treatment was recommended but was not started as pt. wanted to have it done at [facility]; pt. had portacath placed (by vascular Sx- Dr. Vinicio Barrientos) . Pt was noticed to have elevated BUN and Creatinine, got worse, now stable; pt. was seen by Renal (Dr. Ashley and Satya). Pt. was noticed to have right leg DVT, was started on IV Heparin, now switched to Coumadin. Pt. has a recent Hx/o autoimmune hepatitis, under GI care (Dr. Joie Hidalgo), treated with Prednisone ( short course of Azathioprine). Pt. was also seen cardio (Dr. Marjorie Sexton). Pt.'s today labs were significant for supratherapeutic INR (4.90 <- 4.21), hyperkalemia ( 5.2 <- 5.0) and needs labs followup. Pt. to be DC'ed today home and to be seen tomorrow morning at [facility] for further evaluation and treatment. Condition: Fair - Instructions Diet, Activity, Other Instructions: ADA, Renal diet Referrals: Jason Ariza MD [Primary Care Provider] - (this week) Damien Sexton MD [Staff Physician] - (as scheduled) Chris Ashley MD [Staff Physician] - (within a week) Disposition: HOME - Home Medications Comprehensive Discharge Medication List: Ambulatory Orders Metoprolol Tartrate [Lopressor -] 50 mg PO BID 08/12/16 Omeprazole 40 mg PO DAILY 08/12/16 Acetaminophen [Tylenol .Regular Strength -] 650 mg PO Q8H PRN #0 tablet Prednisone [Deltasone -] 10 mg PO DAILY tablet 08/30/16 Sodium Bicarbonate - 650 mg PO DAILY #90 tablet 08/30/16 Warfarin Na [Coumadin -] 5 mg PO DAILY@1800 #90 tablet 08/30/16
--- NOTE | 2016-08-30 14:17 | PN ---
Progress Note (short form) - Note Progress Note: Case was d/w pt. in AM; she is trying to get appt. to [facility], so far didn't hear from them (her son was working on it and he will call me with an answer); pt. aware of high potasium and INR and management. Later on pt.'s son called me that received an appt. for tomorrow morning at [facility] and his mother would like to go home today; I made him aware that blood work needs to be done in AM and he agreed to take his mother to [place] lab. Pt.' s son came to me office and picked up blood work requests for tomorrow and following days (see copies in the office chart); pt.'s son to call me tomorrow for blood test results and instructions regarding Coumadin. Case was d/w pt's nurse. Time spent for managing pt.'s discharge: over 55 min Problem List - Problems (1) Ascites Code(s): R18.8 - OTHER ASCITES Qualifiers: Qualified Code(s): R18.8 - Other ascites (2) Autoimmune hepatitis Code(s): K75.4 - AUTOIMMUNE HEPATITIS (3) Dyspnea on exertion Code(s): R06.09 - OTHER FORMS OF DYSPNEA (4) Acute kidney injury Code(s): N17.9 - ACUTE KIDNEY FAILURE, UNSPECIFIED (5) Leukocytosis Code(s): D72.829 - ELEVATED WHITE BLOOD CELL COUNT, UNSPECIFIED Qualifiers: Qualified Code(s): D72.829 - Elevated white blood cell count, unspecified (6) Obesity Code(s): E66.9 - OBESITY, UNSPECIFIED
--- NOTE | 2016-08-30 14:22 | PN ---
Progress Note, Physician History of Present Illness: Plan for d/c with f/u at [facility] tomorrow. - Current Medication List Current Medications: Active Medications Acetaminophen (Tylenol -) 650 mg PO Q8H PRN PRN Reason: PAIN Last Admin: 08/28/16 23:23 Dose: 650 mg Metoprolol Tartrate (Lopressor -) 50 mg PO BID [facility] Last Admin: 08/30/16 10:54 Dose: 50 mg Midodrine (Proamatine -) 2.5 mg PO TID-MID [facility] Last Admin: 08/30/16 10:54 Dose: 2.5 mg Octreotide Acetate (Sandostatin -) 100 mcg SQ TID [facility] Last Admin: 08/30/16 06:46 Dose: 100 mcg Pantoprazole Sodium (Protonix -) 40 mg PO DAILY [facility] Last Admin: 08/30/16 10:54 Dose: 40 mg Prednisone (Deltasone -) 10 mg PO DAILY [facility] Last Admin: 08/30/16 10:54 Dose: 10 mg Sodium Bicarbonate (Sodium Bicarbonate -) 650 mg PO DAILY [facility] Last Admin: 08/30/16 10:53 Dose: 650 mg Warfarin Sodium (Coumadin -) 5 mg PO DAILY@1800 [facility] Last Admin: 08/29/16 17:11 Dose: Not Given - Objective Vital Signs: Vital Signs Temperature 97.4 F L 08/30/16 06:00 Pulse Rate 75 08/30/16 06:00 Respiratory Rate 20 08/30/16 06:00 Blood Pressure 133/59 08/30/16 06:00 O2 Sat by Pulse Oximetry (%) 95 08/29/16 10:00 Edema: Yes Edema: LLE: 2+, RLE: 2+ Labs: CBC, BMP 08/30/16 06:45 08/30/16 06:45 INR, PTT INR 4.90 (0.82-1.09) H* 08/30/16 06:45 Problem List - Problems (1) Ascites Code(s): R18.8 - OTHER ASCITES Qualifiers: Qualified Code(s): R18.8 - Other ascites (2) Acute diastolic heart failure Code(s): I50.31 - ACUTE DIASTOLIC (CONGESTIVE) HEART FAILURE (3) Hypertensive cardiomyopathy Code(s): I11.9 - HYPERTENSIVE HEART DISEASE WITHOUT HEART FAILURE I42.9 - CARDIOMYOPATHY, UNSPECIFIED Qualifiers: Qualified Code(s): I11.0 - Hypertensive heart disease with heart failure ; I43 - Cardiomyopathy in diseases classified elsewhere (4) Autoimmune hepatitis Code(s): K75.4 - AUTOIMMUNE HEPATITIS (5) Peripheral edema Code(s): R60.9 - EDEMA, UNSPECIFIED (6) Acute kidney injury Code(s): N17.9 - ACUTE KIDNEY FAILURE, UNSPECIFIED (7) Leukocytosis Code(s): D72.829 - ELEVATED WHITE BLOOD CELL COUNT, UNSPECIFIED Qualifiers: Qualified Code(s): D72.829 - Elevated white blood cell count, unspecified (8) Deep venous embolism and thrombosis of right lower extremity Code(s): I82.401 - ACUTE EMBOLISM AND THOMBOS UNSP DEEP VEINS OF R LOW EXTREM Assessment/Plan 1. 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 HTN/HCVD 3. Autoimmune hepatitis 4. Acute on chronic kidney injury and hyperkalemia improvng 5. RLE DVT with supratherapeutic INR 6. Diastolic dysfunction PLAN: 1. Recommended neoadjuvant chemotherapy by Phytopathology Teacher-Onc. Family plan for second opinion at [facility] - likely to be seen as outpatient 2. Monitor renal function - renal input noted, currently on midodrine/octreotide 3. Continue Lopressor 50 mg bid and consider HANS-I/ARB once renal function and hyperkalemia stabilizes 4. Dose Coumadin per INR 5. Prednisone 10 qd with GI protection
[2016-08-30 14:41] VITALS: BP 133/63; PULSE 87; TEMP 97.5
== END 2016-08-30 16:33 | disposition home or self-care (01) | DRG 374 ==
LOC: JER 16:29 → JERBED 21:10 → J5S 08-13 00:41
PROVIDERS: ADMIT Specialist; ATTEND Specialist
PROC: 0W9G3ZX Drainage of Peritoneal Cavity, Percutaneous Approach, Diagnostic (ICD-10-PCS; principal; 2016-08-13)
PROC: 3E033GC Introduction of Other Therapeutic Substance into Peripheral Vein, Percutaneous Approach (ICD-10-PCS; 2016-08-14)
PROC: 0W9G3ZZ Drainage of Peritoneal Cavity, Percutaneous Approach (ICD-10-PCS; 2016-08-24)
PROC: 02H633Z Insertion of Infusion Device into Right Atrium, Percutaneous Approach (ICD-10-PCS; 2016-08-24)
PROC: B244ZZZ Ultrasonography of Right Heart (ICD-10-PCS; 2016-08-24)
DX: C78.6 Secondary malignant neoplasm of retroperitoneum and peritoneum (principal); I50.31 Acute diastolic (congestive) heart failure; K76.7 Hepatorenal syndrome; R18.0 Malignant ascites; C56.9 Malignant neoplasm of unspecified ovary; N17.9 Acute kidney failure, unspecified; Z68.41 Body mass index [BMI] 40.0-44.9, adult; I82.431 Acute embolism and thrombosis of right popliteal vein; I82.441 Acute embolism and thrombosis of right tibial vein; E87.2 Acidosis; D68.69 Other thrombophilia; K75.4 Autoimmune hepatitis; K21.9 Gastro-esophageal reflux disease without esophagitis; R60.0 Localized edema; I11.0 Hypertensive heart disease with heart failure; Z71.3 Dietary counseling and surveillance; I73.00 Raynaud's syndrome without gangrene; D72.829 Elevated white blood cell count, unspecified; R73.9 Hyperglycemia, unspecified; N18.9 Chronic kidney disease, unspecified; E66.9 Obesity, unspecified
CPT/HCPCS: 36415; 71010-TC; 71250-TC; 74176-TC; 76000-TC; 76705-TC; 76942-TC; 78226-TC; 80048; 80053; 80074; 81003; 81015; 81240; 82042; 82105; 82150; 82272; 82378; 82436; 82525; 82570; 82607; 82728; 82945; 83036; 83540; 83605; 83615; 83735; 83880; 84100; 84133; 84156; 84157; 84300; 84540; 85025; 85027; 85300; 85303; 85306; 85610; 85613; 85651; 85730; 85732; 86038; 86140; 86225; 86301; 86304; 86431; 86480; 86850; 86900; 86901; 87040; 87070; 87075; 87086; 87102; 87116; 87205; 87206; 87210; 87899; 88108; 88300-TC; 88305-TC; 89051; 90670; 93005; 93010; 93306-TC; 93970-TC; 93975; 94760; 94761; 97116-GP; 97161-GP; 99285-25; A9537; J1644; P9047; Q9967